=== PATIENT | male | born 1940 | race Caucasian/White ===

== ENCOUNTER 2017-08-03 08:15 | Inpatient (IN) | payer MEDICARE, OTHER ==
[~2017-08-03] VITALS: Ht 175.3 cm; Wt 85.1 kg
[2017-08-03] VITALS (13 sets, daily range): BP systolic 108–143; BP diastolic 64–90; PULSE 87–133; RESP 13–24; TEMP 98.2–103; O2SAT 91–100
[2017-08-03] MEDS ORDERED: METO1TAB42 PO (08:34)
[2017-08-03] MEDS ORDERED: VITA200C3 PO (08:34)
[2017-08-03] MEDS ORDERED: DIOV40TA PO (08:34)
[2017-08-03] MEDS ORDERED: OMEGCAP PO (08:34)
[2017-08-03] MEDS ORDERED: CHOL10008 PO (08:34)
[2017-08-03] MEDS ORDERED: HYDR12.56 PO (08:34)
[2017-08-03] MEDS ORDERED: LIPI20TA PO (08:34)
[2017-08-03] MEDS ORDERED: ASPI-516 CHEW (08:34)
[2017-08-03] MEDS ORDERED: VITA250T3 PO (08:34)
[2017-08-03] MEDS ORDERED: SODIUM CHLOR 0.9% 1000 ML INJ 1,000 ML IV SCH (09:07)
--- NOTE | 2017-08-03 09:14 | PD ---
HPI Chief Complaint: Abdominal Pain Time Seen by Provider: 09:04 Travel History International Travel<30 days: No Contact w/Intl Traveler<30days: No Traveled to known affect area: No History of Present Illness HPI 69-year-old male with history of hypertension, presents today with complaint of right lower quadrant pain 2 days. Patient states it started in his right lateral flank and now has radiated down to his right lower quadrant. He denies any nausea or vomiting. Denies any diarrhea. He states he last had a bowel movement yesterday. The patient does report darker colored urine. He has no history of kidney stones. He's had an appendectomy and a cholecystectomy. There is no reported history of diverticulitis is or diverticulosis. He reports a fever of 102 yesterday. He is afebrile today. PFSH Past Medical History Cardiovascular Problems: Yes High Cholesterol: Yes Chest Pain: Yes Cerebrovascular Accident: Yes Coronary Artery Disease: Yes Hypertension: Yes Past Surgical History Cardiac Surgery: Yes (cabg x 5) Cholecystectomy: Yes Social History Alcohol Use: Yes (occassional) Tobacco Use: No Substance Use: No Allergies-Medications (Allergen,Severity, Reaction): Coded Allergies: No Known Allergies (Unverified , 08/03/17) Reported Meds & Prescriptions Reported Meds & Active Scripts Active Reported [employer]-3 Fish Oil/Vitamin (Fish Oil-Cholecalciferol) 1,000-1,000 Mg Cap 1 Cap PO DAILY Vitamin E 200 Unit Cap 500 Units PO DAILY Vitamin D3 (Cholecalciferol) 1,000 Unit Cap 1,000 Units PO DAILY Vitamin C (Ascorbic Acid) 250 Mg Tab 1,000 Mg PO Aspirin 81 Mg Chew 162 Mg CHEW DAILY Lipitor (Atorvastatin Calcium) 20 Mg Tab 20 Mg PO HS Hydrochlorothiazide 12.5 Mg Tab 12.5 Mg PO DAILY Diovan (Valsartan) 40 Mg Tab 40 Mg PO DAILY Metoprolol Succinate ER 24 HR (Metoprolol Succinate) 25 Mg Tab 12.5 Mg PO HS Review of Systems Except as stated in HPI: all other systems reviewed are Neg General / Constitutional: Positive: Fever, No: Chills (102 yesterday, none today) HENT: No: Headaches, Lightheadedness Cardiovascular: No: Chest Pain or Discomfort, Palpitations Respiratory: No: Cough, Shortness of Breath Gastrointestinal: Positive: Abdominal Pain (right lower quadrant), No: Nausea, Vomiting, Diarrhea Genitourinary: Positive: Other (darker colored urine than normal), No: Dysuria Musculoskeletal: Positive: Pain (pain yesterday in his right), No: Weakness ( flank) Skin: No Rash, No Lesions Neurologic: No: Weakness, Dizziness Physical Exam Narrative GENERAL: Well-nourished, well-developed patient in no acute respiratory distress. SKIN: Focused skin assessment warm/dry. HEAD: Normocephalic/atraumatic. EYES: No scleral icterus. No injection or drainage. NECK: Supple, trachea midline. No JVD or lymphadenopathy. CARDIOVASCULAR: Regular rate and rhythm without murmurs, gallops, or rubs. RESPIRATORY: Breath sounds equal bilaterally. No accessory muscle use. GASTROINTESTINAL: Abdomen soft, slightly distended. There is tenderness to palpation in his right lower quadrant. There is no rebound but voluntary guarding. MUSCULOSKELETAL: No cyanosis, or edema. BACK: Nontender without obvious deformity. NEUROLOGICAL: Awake and alert. Cranial nerves II through XII intact. Motor grossly within normal limits. Five out of 5 muscle strength in all muscle groups. Normal speech. Data Data Last Documented VS Vital Signs Date Time Temp Pulse Resp B/P (MAP) Pulse Ox O2 Delivery O2 Flow Rate FiO2 08/03/17 12:39 87 18 128/75 (92) 94 Room Air 08/03/17 09:52 101.6 Orders Orders Complete Blood Count With Diff (08/03/17 09:07) Comprehensive Metabolic Panel (08/03/17 09:07) Urinalysis - C+S If Indicated (08/03/17 09:07) Iv Access Insert/Monitor (08/03/17 09:07) Ecg Monitoring (08/03/17 09:07) Oximetry (08/03/17 09:07) Morphine Inj (Morphine Inj) (08/03/17 09:15) Ondansetron Inj (Zofran Inj) (08/03/17 09:15) Sodium Chlor 0.9% 1000 Ml Inj (Ns 1000 M (08/03/17 09:07) Sodium Chloride 0.9% Flush (Ns Flush) (08/03/17 09:15) Diatrizoate Liq ( Gastroedith Liq) (08/03/17 09:55) Blood Culture (08/03/17 09:55) Ct Abd/Pel W Iv Contrast(Rout) (08/03/17 09:55) Oral Contrast - Adult (08/03/17 10:03) Iohexol 350 Inj (Omnipaque 350 Inj) (08/03/17 11:26) Levofloxacin 750 Mg Premix Inj (Levaquin (08/03/17 12:30) Metronidazole 500 Mg Inj (Flagyl 500 Mg (08/03/17 12:30) Place In Observation (08/03/17 ) Vital Signs (Adult) MICKI.Q4H (08/03/17 12:39) Activity Oob With Assistance (08/03/17 12:39) Intake + Output 06,14,22 (08/03/17 12:39) Resp Oxygen David C Titrat 1-4 L (08/03/17 ) Sodium Chloride 0.9% Flush (Ns Flush) (08/03/17 12:45) Sodium Chloride 0.9% Flush (Ns Flush) (08/03/17 21:00) Aspirin Chew (Aspirin Chew) (08/04/17 09:00) Atorvastatin (Lipitor) (08/03/17 21:00) Cholecalciferol (Vitamin D3) (08/04/17 09:00) Hydrochlorothiazide (Microzide) (08/04/17 09:00) Metoprolol Succinate Er (Toprol Xl) (08/03/17 21:00) Valsartan (Diovan) (08/04/17 09:00) (Nf) Vitamin E (08/04/17 09:00) Admit Order (Ed Use Only) (08/03/17 12:47) Labs Laboratory Tests Test 08/03/17 09:10 08/03/17 09:33 White Blood Count 17.1 TH/MM3 Red Blood Count 4.53 MIL/MM3 Hemoglobin 13.6 GM/DL Hematocrit 40.0 % Mean Corpuscular Volume 88.3 FL Mean Corpuscular Hemoglobin 30.0 PG Mean Corpuscular Hemoglobin Concent 34.0 % Red Cell Distribution Width 14.0 % Platelet Count 120 TH/MM3 Mean Platelet Volume 8.7 FL Neutrophils (%) (Auto) 89.5 % Lymphocytes (%) (Auto) 5.2 % Monocytes (%) (Auto) 5.1 % Eosinophils (%) (Auto) 0.0 % Basophils (%) (Auto) 0.2 % Neutrophils # (Auto) 15.3 TH/MM3 Lymphocytes # (Auto) 0.9 TH/MM3 Monocytes # (Auto) 0.9 TH/MM3 Eosinophils # (Auto) 0.0 TH/MM3 Basophils # (Auto) 0.0 TH/MM3 CBC Comment DIFF FINAL Differential Comment Blood Urea Nitrogen 14 MG/DL Creatinine 1.08 MG/DL Random Glucose 121 MG/DL Total Protein 7.4 GM/DL Albumin 3.8 GM/DL Calcium Level 8.6 MG/DL Alkaline Phosphatase 63 U/L Aspartate Amino Transf (AST/SGOT) 33 U/L Alanine Aminotransferase (ALT/SGPT) 36 U/L Total Bilirubin 2.3 MG/DL Sodium Level 136 MEQ/L Potassium Level 3.4 MEQ/L Chloride Level 100 MEQ/L Carbon Dioxide Level 25.5 MEQ/L Anion Gap 11 MEQ/L Estimat Glomerular Filtration Rate 66 ML/MIN Urine Color YELLOW Urine Turbidity CLEAR Urine pH 7.0 Urine Specific [place] 1.018 Urine Protein 30 mg/dL Urine Glucose (UA) NEG mg/dL Urine Ketones TRACE mg/dL Urine Occult Blood SMALL Urine Nitrite NEG Urine Bilirubin NEG Urine Urobilinogen 2.0 MG/DL Urine Leukocyte Esterase NEG Urine RBC 30 /hpf Urine WBC LESS THAN 1 /hpf Urine Mucus FEW /lpf Microscopic Urinalysis Comment CULT NOT INDICATED MDM Medical Decision Making Medical Screen Exam Complete: Yes Emergency Medical Condition: Yes Differential Diagnosis Versus diverticulitis versus bowel obstruction versus UTI Narrative Course 76-year-old male presents with complaints of right lower quadrant abdominal pain. The patient states the pain started in his right flank and radiated to his groin. He has no flank pain at this time. Patient is also febrile with a temperature of 101.6. He has a white blood cell count that is elevated 17,000. Urinalysis shows hematuria without evidence of infection. Blood cultures have been obtained. CT scan shows no evidence of acute infectious abdominal process. Given this, I would feel more comfortable having him be admitted to the hospital. I discussed the case with Dr. Lobato, covering for Dr. Rojo, attending physician for the medicine service. He has been started on Levaquin and Flagyl. Diagnosis Primary Impression: Fever Additional Impressions: Right lower quadrant abdominal pain Leukocytosis Hematuria History of hypertension Admitting Information Admitting Physician Requests: Thomas Novoa C. MD Aug 03, 2017 09:14
[2017-08-03] MEDS ORDERED: ONDANSETRON HCL 4 MG/2 ML VIAL IVP ONE (09:15)
[2017-08-03] MEDS ORDERED: SODIUM CHLORIDE 0.9% FLUSH 10 ML FLUSH IV FLUSH PRN ×2 (09:15→12:45)
[2017-08-03] MEDS ORDERED: MORPHINE SULFATE 4 MG/ML INJ IV PUSH ONE (09:15)
[2017-08-03 09:27] LABS: AUTOMATED NEUTROPHIL # 15.3 TH/MM3 (1.8-7.7); BASOPHIL % 0.2 % (0.0-2.0); HEMO FLAGS DIFF FINAL; LYMPH % 5.2 % (9.0-44.0); LYMPHOCYTE # 0.9 TH/MM3 (1.0-4.8); MEAN CELL VOLUME 88.3 FL (80.0-100.0); MONO % 5.1 % (0.0-8.0); NEUT % 89.5 % (16.0-70.0); PLATELET COUNT 120 TH/MM3 (150-450); RED BLOOD COUNT 4.53 MIL/MM3 (4.50-5.90); WHITE BLOOD COUNT 17.1 TH/MM3 (4.0-11.0)
[2017-08-03 09:45] LABS: ANION GAP 11 MEQ/L (5-15); AST (GOT) 33 U/L (15-37); BICARBONATE 25.5 MEQ/L (21.0-32.0); BLOOD UREA NITROGEN 14 MG/DL (7-18); CHLORIDE 100 MEQ/L (98-107); POTASSIUM 3.4 MEQ/L (3.5-5.1); SODIUM (NA) 136 MEQ/L (136-145)
[2017-08-03 09:46] LABS: BLOOD, URINE SMALL (NEG); COMMENT (UR) CULT NOT INDICATED; CULTURE IF INDICATED CULT NOT INDICATED; GLUCOSE,URINE NEG (NEG); KETONE, URINE TRACE mg/dL (NEG); MUCUS URINE FEW /lpf (OCC); NITRITE,URINE NEG (NEG); URINE COLOR YELLOW (YELLW/STRAW)
[2017-08-03 09:53] LABS: ALKALINE PHOSPHATASE 63 U/L (45-117); ALT (GPT) 36 U/L (12-78); GLOMERULAR FILTRATION RATE 66 ML/MIN (>89); TOTAL BILIRUBIN ADULT 2.3 MG/DL (0.2-1.0)
[2017-08-03] MEDS ORDERED: DIATRIZOATE MEGLUM/DIATRIZOATE SOD 9 ML CUP ONE (09:55)
[2017-08-03] MEDS ORDERED: IOHEXOL 350 MG/ML 10 ML VIAL (for RAD DIAG) IVCONTRAST ONE (11:26)
--- NOTE | 2017-08-03 11:40 | RADRPT ---
EXAM DATE/TIME: 08/03/2017 11:14 [facility] COMPARISON: No previous studies available for comparison. INDICATIONS : Right lower quadrant pain and fever. History of appendectomy. IV CONTRAST: 94 cc Omnipaque 350 (iohexol) IV ORAL CONTRAST: No oral contrast ingested. RADIATION DOSE: 13.77 CTDIvol (mGy) MEDICAL HISTORY : Cerebrovascular disease. Cardiovascular disease Hypertension. SURGICAL HISTORY : Appendectomy. Cholecystectomy. ENCOUNTER: Initial ACUITY: 2 days PAIN SCALE: 7/10 LOCATION: Right lower quadrant TECHNIQUE: Volumetric scanning of the abdomen and pelvis was performed. Using automated exposure control and ad justment of the mA and/or kV according to patient size, radiation dose was kept as low as reasonably achievable to obtain optimal diagnostic quality images. DICOM format image data is available electro nically for review and comparison. FINDINGS: LOWER LUNGS: Minimal bibasilar ground glass opacities consistent with atelectasis. LIVER: Mild diffusely decreased hepatic attenuation without significant focal mass or intrahepatic ductal di latation. Gallbladder is surgically absent. SPLEEN: Normal size without lesion. PANCREAS: Within normal limits. KIDNEYS: Kidneys demonstrate symmetrical enhancement and are symmetric in size without evidence of hydronephro sis or radiopaque renal calculi. There is a 2 x 1 cm cystic lesion in the superior pole the left kidn ey measuring about 15 Hounsfield units which is in the upper limits of normal for simple cyst. ADRENAL GLANDS: Within normal limits. VASCULAR: There is no aortic aneurysm. BOWEL/MESENTERY: Mild sigmoid diverticulosis. Marginally dilated loops of distal jejunum in the left abdomen. Ingested oral contrast is noted beyond this level. No pneumatosis or free air. There is no focal drainable fl uid collection. ABDOMINAL WALL: Within normal limits. RETROPERITONEUM: There is no lymphadenopathy. BLADDER: Bladder is distended but otherwise unremarkable. REPRODUCTIVE: Nonspecific enlargement of the prostate gland. INGUINAL: Small fat-containing inguinal hernias. MUSCULOSKELETAL: Posterior kain and screw fixation at L3-4. No abnormal lytic or blastic bony lesions. CONCLUSION: 1. No drainable fluid collection/abscess status post appendectomy. 2. Marginally prominent jejunal loops consistent with mild adynamic ileus. 3. Ancillary findings, as above. Javi Renee MD on August 03, 2017 at 11:26 Board Certified Radiologist. This report was verified electronically.
[2017-08-03] MEDS ORDERED: metroNIDAZOLE 500 MG INJ 100 ML IV ONE (12:30)
[2017-08-03] MEDS ORDERED: LEVOFLOXACIN 750 MG PREMIX INJ 150 ML IV ONE (12:30)
--- NOTE | 2017-08-03 12:38 | HHI.HP ---
HPI Service Family Medicine Primary Care Physician No Primary Care Physician Admission Diagnosis Diagnoses: International Travel<30 Days: No Contact w/Intl Traveler<30days: No Known Affected Area: No History of Present Illness Patient is a 76-year-old male with a past medical history of CAD status post 5-vessel CABG, hyperlipidemia, and hypertension that presents to the [place] ED with a chief complaint of right lower quadrant pain of 2 days duration. He describes the pain as 10/10 pain that mata like fire. Patient states that he was remodeling in an apartment on Wednesday 08/01 and did well all day. He went to bed that night and woke up around 4 AM on morning with severe right back pain that radiated to his right lower quadrant/ suprapubic area. Patient states that the pain was so severe that he could not move any part of his body without feeling pain. He was finally able to get himself out of bed and took 2 Aleve pills but could not do much the entire day and could barely walk. The pain initially subsided and then started to get worse again such that his friend convinced him to come to the ER. He has not been ill prior to this incident and denies any sick contacts. (Imelda Zeng MD R2) Review of Systems Constitutional: COMPLAINS OF: Change in appetite, DENIES: Fatigue, Fever, Weight loss, Chills, Dizziness Eyes: DENIES: Blurred vision, Vision loss Ears, nose, mouth, throat: DENIES: Nasal discharge, Throat pain, Running Nose, Sinus Pain Respiratory: DENIES: Cough, Wheezing, Shortness of breath Cardiovascular: DENIES: Chest pain, Palpitations Gastrointestinal: COMPLAINS OF: Abdominal pain, Constipation (last bowel movement on Sunday and was bigger than normal - was regular ), DENIES: Diarrhea Genitourinary: DENIES: Urinary frequency, Dysuria Musculoskeletal: COMPLAINS OF: Muscle aches, DENIES: Back pain Integumentary: DENIES: Pruritus, Rash Neurologic: DENIES: Headache, Localized weakness, Paresthesias Psychiatric: DENIES: Anxiety, Depression (Imelda Zeng MD R2) Past Family Social History Past Medical History Coronary artery disease status post 5 vessel CABG Hypertension Hyperlipidemia Past Surgical History Five-vessel CABG in 2010 Back surgery for a slipped disc Cholecystectomy Appendectomy Reported Medications Reported Meds & Active Scripts Active Reported [place]-3 Fish Oil/Vitamin (Fish Oil-Cholecalciferol) 1,000-1,000 Mg Cap 1 Cap PO DAILY Vitamin E 200 Unit Cap 500 Units PO DAILY Vitamin D3 (Cholecalciferol) 1,000 Unit Cap 1,000 Units PO DAILY Vitamin C (Ascorbic Acid) 250 Mg Tab 1,000 Mg PO Aspirin 81 Mg Chew 162 Mg CHEW DAILY Lipitor (Atorvastatin Calcium) 20 Mg Tab 20 Mg PO HS Hydrochlorothiazide 12.5 Mg Tab 12.5 Mg PO DAILY Diovan (Valsartan) 40 Mg Tab 40 Mg PO DAILY Metoprolol Succinate ER 24 HR (Metoprolol Succinate) 25 Mg Tab 12.5 Mg PO HS (Imelda Zeng MD R2) Allergies: Coded Allergies: No Known Allergies (Unverified , 08/03/17) Family History Uncles, cousins and brother have had disease No history of cancer or strokes in his family Social History Lives seasonally in [facility], from [place] Smoked for 10 years from age [age] 1-2 drinks a day, 3-4 drinks a week (Imelda Zeng MD R2) Physical Exam Vital Signs Vital Signs Date Time Temp Pulse Resp B/P (MAP) Pulse Ox O2 Delivery O2 Flow Rate FiO2 08/03/17 09:52 101.6 93 18 143/74 (97) 95 Room Air 08/03/17 09:51 95 Room Air 08/03/17 08:35 98.6 87 18 137/90 (106) 93 Room Air 08/03/17 08:27 18 08/03/17 08:17 98.2 99 13 141/81 (101) 100 Physical Exam GENERAL: This is a well-nourished, well-developed patient, in no apparent distress. SKIN: No rashes, ecchymoses or lesions. Cool and dry. No sacral or decubitis ulcers HEAD: Atraumatic. Normocephalic. No temporal or scalp tenderness. EYES: Pupils equal round and reactive. Extraocular motions intact. No scleral icterus. No injection or drainage. ENT: Nose without bleeding, purulent drainage or septal hematoma. Throat without erythema, tonsillar hypertrophy or exudate. Uvula midline. Airway patent. NECK: Trachea midline. No JVD or lymphadenopathy. Supple, nontender, no meningeal signs. CARDIOVASCULAR: Regular rate and rhythm without murmurs, gallops, or rubs. RESPIRATORY: Clear to auscultation. Breath sounds equal bilaterally. No wheezes , rales, or rhonchi. GASTROINTESTINAL: Abdomen soft, tender to palpation in the right lower quadrant/ right suprapubic area, distended and tympanic. No hepato-splenomegaly, or palpable masses. No guarding. MUSCULOSKELETAL: Extremities without clubbing, cyanosis, or edema. Prepatellar bursitis of knees bilaterally. No calf tenderness. Unable to hold right lower extremity against gravity due to pain. Nontender over right back/flank. NEUROLOGICAL: Awake and alert. Cranial nerves II through XII intact. Motor and sensory grossly within normal limits. Five out of 5 muscle strength in bilateral upper extremities and left lower extremity. Normal speech. Laboratory Laboratory Tests Test 08/03/17 09:10 08/03/17 09:33 White Blood Count 17.1 Red Blood Count 4.53 Hemoglobin 13.6 Hematocrit 40.0 Mean Corpuscular Volume 88.3 Mean Corpuscular Hemoglobin 30.0 Mean Corpuscular Hemoglobin Concent 34.0 Red Cell Distribution Width 14.0 Platelet Count 120 Mean Platelet Volume 8.7 Neutrophils (%) (Auto) 89.5 Lymphocytes (%) (Auto) 5.2 Monocytes (%) (Auto) 5.1 Eosinophils (%) (Auto) 0.0 Basophils (%) (Auto) 0.2 Neutrophils # (Auto) 15.3 Lymphocytes # (Auto) 0.9 Monocytes # (Auto) 0.9 Eosinophils # (Auto) 0.0 Basophils # (Auto) 0.0 CBC Comment DIFF FINAL Differential Comment Blood Urea Nitrogen 14 Creatinine 1.08 Random Glucose 121 Total Protein 7.4 Albumin 3.8 Calcium Level 8.6 Alkaline Phosphatase 63 Aspartate Amino Transf (AST/SGOT) 33 Alanine Aminotransferase (ALT/SGPT) 36 Total Bilirubin 2.3 Sodium Level 136 Potassium Level 3.4 Chloride Level 100 Carbon Dioxide Level 25.5 Anion Gap 11 Estimat Glomerular Filtration Rate 66 Urine Color YELLOW Urine Turbidity CLEAR Urine pH 7.0 Urine Specific [place] 1.018 Urine Protein 30 Urine Glucose (UA) NEG Urine Ketones TRACE Urine Occult Blood SMALL Urine Nitrite NEG Urine Bilirubin NEG Urine Urobilinogen 2.0 Urine Leukocyte Esterase NEG Urine RBC 30 Urine WBC LESS THAN 1 Urine Mucus FEW Microscopic Urinalysis Comment CULT NOT INDICATED Date/Time Source Procedure Growth Status 08/03/17 10:05 Blood Peripheral Aerobic Blood Culture Pending Received 08/03/17 10:05 Blood Peripheral Anaerobic Blood Culture Pending Received (Imelda Zeng MD R2) Result Diagram: 08/03/17 0910 08/03/17 0910 Imaging Last 72 hours Impressions Abdomen/Pelvis CT 08/03/17 0955 Signed Impressions: Service Date/Time: Thursday, August 03, 2017 11:14 - CONCLUSION: 1. No drainable fluid collection/abscess status post appendectomy. 2. Marginally prominent jejunal loops consistent with mild adynamic ileus. 3. Ancillary findings, as above. Javi Renee MD Abdomen Ultrasound 08/03/17 0000 Signed Impressions: Service Date/Time: Thursday, August 03, 2017 13:35 - CONCLUSION: Unremarkable. Etiology for abdominal pain is not evident. Keyur Miguel MD FACR Course In the ED, a CT scan of the abdomen was performed that showed marginally prominent jejunal loops consistent with mild adynamic ileus. Ultrasound of the abdomen is unremarkable and did not reveal a possible source of the abdominal pain. (Imelda Zeng MD R2) Caprini VTE Risk Assessment Caprini VTE Risk Assessment: Mod/High Risk (score >= 2) Caprini Risk Assessment Model Point Value = 1 Point Value = 2 Point Value = 3 Point Value = 5 Age 41-60 Minor surgery BMI > 25 kg/m2 Swollen legs Varicose veins or History of unexplained or recurrent spontaneous Oral contraceptives or hormone replacement Sepsis (< 1 month) Serious lung disease, including pneumonia (< 1 month) Abnormal pulmonary function Acute myocardial infarction Congestive heart failure (< 1 month) History of inflammatory bowel disease Medical patient at bed rest Age 61-74 Arthroscopic surgery Major open surgery (> 45 min) Laparoscopic surgery (> 45 min) Malignancy Confined to bed (> 72 hours) Immobilizing plaster cast Central venous access Age >= 75 History of VTE Family history of VTE Factor V Leiden Prothrombin [id number] Lupus anticoagulant Anticardiolipin antibodies Elevated serum homocysteine Heparin-induced thrombocytopenia Other congenital or acquired thrombophilia Stroke (< 1 month) Elective arthroplasty Hip, pelvis, or leg fracture Acute spinal cord injury (< 1 month) Prophylaxis Regimen Total Risk Factor Score Risk Level Prophylaxis Regimen 0-1 Low Early ambulation 2 Moderate Order ONE of the following: *Sequential Compression Device (SCD) *Heparin 5000 units SQ BID 3-4 Higher Order ONE of the following medications: *Heparin 5000 units SQ TID *Enoxaparin/Lovenox 40 mg SQ daily (WT < 150 kg, CrCl > 30 mL/min) *Enoxaparin/Lovenox 30 mg SQ daily (WT < 150 kg, CrCl > 10-29 mL/min) *Enoxaparin/Lovenox 30 mg SQ BID (WT < 150 kg, CrCl > 30 mL/min) AND/OR *Sequential Compression Device (SCD) 5 or more Highest Order ONE of the following medications: *Heparin 5000 units SQ TID (Preferred with Epidurals) *Enoxaparin/Lovenox 40 mg SQ daily (WT < 150 kg, CrCl > 30 mL/min) *Enoxaparin/Lovenox 30 mg SQ daily (WT < 150 kg, CrCl > 10-29 mL/min) *Enoxaparin/Lovenox 30 mg SQ BID (WT < 150 kg, CrCl > 30 mL/min) AND *Sequential Compression Device (SCD) (Imelda Zeng MD R2) Assessment and Plan Assessment and Plan 76-year-old male presents with right lower quadrant/right groin pain, meets sepsis criteria with unknown source, and later developed A. fib with RVR. Admitted for empiric antibiotic therapy, management of A. fib, and ACS rule out. Code Status Full code Discussed Condition With Seen and examined with Dr. Gonzalez. Discussed with Dr. Rojo (Imelda Zeng MD R2) Attending Attestation The patient has been seen and examined. The chart and all resident notes have been reviewed. I agree that inpatient care is appropriate and that a two midnight stay is expected for the reasons documented in the resident history and physical. I have discussed this with the resident and certify the resident s order for inpatient admission. (Ana Rojo MD) Problem List: (1) Sepsis ICD Codes: A41.9 - Sepsis, unspecified organism Plan: -Met sepsis criteria and admission with elevated pulse and WBC of 17.1, no clear source. Initially patient was afebrile but developed a fever up to 103 F * CT of abdomen only shows a mild adynamic ileus with no indication of a source of infection * Received 1 L normal saline bolus in the ED * Urinalysis shows small occult blood with 30 red blood cells, not indicative of infection * Lactate within normal limits at 1.4 * Blood cultures pending * Received one dose each of Levaquin IV and Flagyl IV * Initially was switched to ciprofloxacin IV with Flagyl, but changed to Zosyn IV and vancomycin IV (2) Atrial fibrillation with RVR ICD Codes: I48.91 - Unspecified atrial fibrillation Plan: -Patient initially presented with regular rate and rhythm but developed new onset A. fib with RVR -Received 10 mg IV diltiazem bolus and was transitioned to diltiazem drip with eventual resolution of RVR but remains in A. fib -EKG obtained in the ED showed A. fib with RVR and inverted T waves, no comparison EKG available, will trend 2 -Troponin 0.10, will trend 2. Elevated troponin may be secondary to demand ischemia from the Afib with RVR -TSH WNL at 0.876 -BMP elevated at 414, will trend -2-D echo pending -Cardiology consult for new onset A. fib (3) Right lower quadrant abdominal pain ICD Codes: R10.31 - Right lower quadrant pain Status: Acute Plan: -Differential diagnoses includes right kidney stone, early colitis, septic right hip joint, muscle spasm with radiculopathy -Pt does not recall passing a stone -Urine positive for occult blood and 30 RBCs -Renal US essentially normal except for small upper pole cyst also seen on CT abdomen. No hydronephrosis, stone, or mass on either CT or US -Mild adynamic ileus on CT scan -Last bowel movement was on Wednesday 08/01 and was normal but larger than usual -Initially nothing by mouth, will advance diet as tolerated -Morphine 2 mg IV every 4 hours for pain -NS at 125 mL/hour for ileus -Constipation regimen -Urine filter for possible stone -Consider urology consult - pt does report weak stream and may be retaining urine -Straight cath as needed (4) Thrombocytopenia ICD Codes: D69.6 - Thrombocytopenia, unspecified Plan: -Platelets 120 with normal hemoglobin and hematocrit -ITP on the differential, will continue to monitor (5) Hyperbilirubinemia ICD Codes: E80.6 - Other disorders of bilirubin metabolism Plan: -Total bilirubin of 2.3 with breakdown as follows: Direct bilirubin 0.5, indirect bilirubin 1.8 -Suspicious for hemolysis -Will check hepatitis profile (6) Chronic Medical Problems Plan: CAD: Continue metoprolol ER 12.5 mg by mouth and aspirin 162 mg by mouth daily Hypertension: Holding valsartan and hydrochlorothiazide due to Cardizem drip and low blood pressure, will possibly continuing the a.m. on reassessment (7) FEN/DVT PPX/GI PPX/Nursing Orders Plan: Fluids: NS @ 125 mls/hr IV Electrolytes: Will monitor and replace as needed Nutrition: Currently clear liquid diet, will advance to Heart-healthy diet as tolerated DVT Prophylaxis: Lovenox 40mg daily GI Prophylaxis: Protonix 40mg PO daily Constipation prophylaxis: Pericolace 1 tab PO BID scheduled, milk of magnesia PRN PRN Medications Tylenol 650 mg by mouth every 4 hours when necessary pain 1-10 or temperature greater than 100.4F Zofran 4 mg IV push every 6 hours when necessary nausea vomiting [place] 325-5 mg 1 tab by mouth every 6 hours when necessary pain 5-7 [place] 325-10 mg 1 tab by mouth every 6 hours when necessary pain 8-10 Morphine 2 mg IV push every 3 hours when necessary breakthrough pain -Vitals Q4h -Monitor I's and O's -playground monitor with telemetry with continuous vital signs -Activity OOB with assistance -PT to assist with ambulation -Case management consult to assist with discharge disposition Disposition: Possibly in the next 1-2 days pending clinical improvement (Imelda Zeng MD R2) Problem Qualifiers (1) Sepsis: Qualified Codes: A41.9 - Sepsis, unspecified organism Imelda Zeng MD R2 Aug 03, 2017 12:37 Ana Rojo MD Aug 04, 2017 14:24
[2017-08-03] MEDS ORDERED: PILL SPLITTER OTHER PRN (13:00)
[2017-08-03] MEDS ORDERED: MORPHINE SULFATE 2 MG/ML INJ IV PUSH PRN (13:15)
[2017-08-03] MEDS ORDERED: ONDANSETRON HCL 4 MG/2 ML VIAL IV PUSH PRN (13:15)
[2017-08-03] MEDS ORDERED: ACETAMINOPHEN 325 MG TAB PO PRN (13:15)
[2017-08-03 14:28] LABS: INDIRECT BILIRUBIN 1.8 MG/DL (0.0-0.8); MAGNESIUM 1.9 MG/DL (1.5-2.5)
--- NOTE | 2017-08-03 14:53 | RADRPT ---
EXAM DATE/TIME: 08/03/2017 13:35 [facility] COMPARISON: No previous studies available for comparison. INDICATIONS : Abdominal pain, fever, abdominal distention. MEDICAL HISTORY : Hypertension. Hypercholesterolemia. Cerebral vascular accident. Coronary artery disease. SURGICAL HISTORY : Cholecystectomy. Orthopedic surgery. CABG. ENCOUNTER: Initial ACUITY: 2 days PAIN SCORE: 5/10 LOCATION: Right upper quadrant MEASUREMENTS: LIVER: 14.3 cm length COMMON DUCT: Non-visualized RIGHT KIDNEY: 12.4 x 5.1 x 5.8 cm LEFT KIDNEY: 13.4 x 4.6 x 6.5 cm SPLEEN: 11.0 cm length AORTA: 2.0cm maximal FINDINGS: LIVER: Normal echotexture without focal lesion or ductal dilatation. COMMON DUCT: No intraluminal mass or stone visualized. GALLBLADDER: Surgical absence PANCREAS: The visualized portions are within normal limits. RIGHT KIDNEY: No hydronephrosis, stone or mass. LEFT KIDNEY: Small upper pole cyst. SPLEEN: No focal lesion. AORTA: Non aneurysmal. IVC: Within normal limits. CONCLUSION: Unremarkable. Etiology for abdominal pain is not evident. Keyur Miguel MD FACR on August 03, 2017 at 14:50 Board Certified Radiologist. This report was verified electronically.
[2017-08-03] MEDS ORDERED: SENNOSIDES 8.6 MG TAB PO PRN (15:45)
[2017-08-03] MEDS ORDERED: BISACODYL 10 MG SUPP RECTAL PRN (15:45)
[2017-08-03] MEDS: METOPROLOL SUCCINATE 25 MG EXTENDED RELEASE TAB PO SCH ×2 (15:48→23:14)
[2017-08-03] MEDS: HEPARIN SODIUM - SQ 10,000 UNITS/ML VIAL SQ SCH ×2 (15:48→23:14)
[2017-08-03] MEDS: SODIUM CHLOR 0.9% 1000 ML INJ 1,000 ML IV SCH (17:46)
[2017-08-03] MEDS: MAGNESIUM HYDROXIDE SUSP 30 ML CUP PO PRN (17:48)
--- NOTE | 2017-08-03 17:49 | HHI.FPPN ---
Subjective Subjective Patient seen and examined. Case reviewed and discussed Please refer to resident H&P for further details regarding HPI, ROS, PMH, SurgHx , FH and SocHx. In summary, patient is a 76yoM with a history of CAD s/p CABG x 5v presenting with abdominal pain and fevers He reports yesterday morning he woke up with severe flank pain with radiated around to his R groin, burning in nature, 07/03 He reports some associated burning with urination He denies any history of renal stones Patient does note some sensations of having to void a large amount, but minimal urine coming out. Patient also notes a history of chronic constipation, last BM was normal 2 days ago. He treats this with MOM. At the time of my encounter, the patient is noted to complain of palpitations and sensations of a fast heart rate which started while he was at the hospital. [facility] Objective Objective Last Impressions Abdomen/Pelvis CT 08/03/17 0955 Signed Impressions: Service Date/Time: Thursday, August 03, 2017 11:14 - CONCLUSION: 1. No drainable fluid collection/abscess status post appendectomy. 2. Marginally prominent jejunal loops consistent with mild adynamic ileus. 3. Ancillary findings, as above. Javi Renee MD Abdomen Ultrasound 08/03/17 0000 Signed Impressions: Service Date/Time: Thursday, August 03, 2017 13:35 - CONCLUSION: Unremarkable. Etiology for abdominal pain is not evident. Keyur Miguel MD FACR Laboratory Tests - Abnormals Test 08/03/17 09:10 08/03/17 09:33 White Blood Count 17.1 TH/MM3 Platelet Count 120 TH/MM3 Neutrophils (%) (Auto) 89.5 % Lymphocytes (%) (Auto) 5.2 % Neutrophils # (Auto) 15.3 TH/MM3 Lymphocytes # (Auto) 0.9 TH/MM3 Random Glucose 121 MG/DL Total Bilirubin 2.3 MG/DL Direct Bilirubin 0.5 MG/DL Potassium Level 3.4 MEQ/L Estimat Glomerular Filtration Rate 66 ML/MIN Phosphorus Level 2.3 MG/DL Indirect Bilirubin 1.8 MG/DL Urine Protein 30 mg/dL Urine Ketones TRACE mg/dL Urine Occult Blood SMALL Urine RBC 30 /hpf Urine Mucus FEW /lpf Vital Signs 08/03/17 08/03/17 08/03/1708/03/17 08:17 08:27 08:35 09:51 Temp 98.2 98.6 Pulse 99 87 Resp 13 18 18 B/P (MAP) 141/81 (101) 137/90 (106) Pulse Ox 100 93 95 O2 Delivery Room Air Room Air 08/03/17 08/03/17 08/03/17 08/03/17 09:52 12:39 14:06 15:00 Temp 101.6 103.0 Pulse 93 87 119 Resp 18 18 18 B/P (MAP) 143/74 (97) 128/75 (92) 135/80 (98) Pulse Ox 95 94 94 O2 Delivery Room Air Room Air Room Air 08/03/17 08/03/17 15:07 15:32 Temp 100.8 Pulse 117 Resp 20 19 B/P (MAP) 116/69 (85) Pulse Ox 94 INTAKE & OUTPUT 08/04/17 07:00 Intake Total 1100 ml Balance 1100 ml Physical exam GENERAL: wdwn male, appears comfortable, resting in bed, at the bedside SKIN: Warm and dry. No rashes HEAD: Normocephalic. AT EYES: No scleral icterus. No injection or drainage. ENT: OP clear. MM slightly dry NECK: Supple, trachea midline. No JVD or lymphadenopathy. CARDIOVASCULAR: Mildlu elevated HR in 90s, irregularly irregular rhythm without audible murmurs, gallops, or rubs. RESPIRATORY: Breath sounds equal and clear bilaterally. No accessory muscle use. GASTROINTESTINAL: Abdomen soft, distended. There is TTP over epigastrium and suprapubic region. MUSCULOSKELETAL: No cyanosis, or edema. NO calf tenderness. There is pre- patellar bursitis bilaterally. BACK: Nontender without obvious deformity. No CVA tenderness. NEURO: Awake and alert. Normal speech. Motor and sensory intact and equal bilaterally. Assessment Assessment 76yoM admitted with: Sepsis Abdominal pain and fever Cystic lesion L superior pole of kidney - patient informed Ileus, with mildly dilated loops of jejunum ?Nephrolithiasis, may have passed stone Hyperbilirubinemia Suspect new onset Afib CAD with Hx CABG x 5v Leukocytosis Tachycardia Hyperglycemia PLAN PLAN IVF Lactic acid sepsis protocol Renal ultrasound to further characterize cystic lesion Bowel regimen Ambulation Consider GI consultation if no improvement Strain urine Pain control Consider urology consultation if continues to have difficulty with voiding 12 lead ekg, monitor for afib If positive, will treat for new onset afib Empiric antibiotic therapy with Cipro, Flagyl Hepatitis profile Direct and indirect bilirubin, trend levels Resume home meds as appropriate If no other source of infection, further evaluate knees as source Patient seen and examined. Case reviewed and discussed with RN, patient, , resident team Agree with plan of care as discussed with me and documented in the resident note. Ana Rojo MD Aug 03, 2017 17:49
[2017-08-03] MEDS ORDERED: metroNIDAZOLE 500 MG INJ 100 ML IV SCH (18:00)
[2017-08-03 18:12] LABS: HEMOGLOBIN A1a 1.2 %; HEMOGLOBIN A1b 1.5 %; HEMOGLOBIN LA1C 2.2 %
[2017-08-03] MEDS ORDERED: DILTIAZEM HCL 25 MG/5 ML VIAL IV ONE (19:00)
[2017-08-03] MEDS ORDERED: DILTIAZEM 125 MG/NS 100 ML IV PRN ×2 (20:00)
[2017-08-03] MEDS ORDERED: DILTIAZEM DRIP 125 MG in NS 125 ML PREMIX DELTONA ONLY IV PRN (20:00)
[2017-08-03] MEDS ORDERED: METOPROLOL SUCCINATE 25 MG EXTENDED RELEASE TAB PO SCH (21:00)
[2017-08-03] MEDS ORDERED: Vancomycin Consult Pharmacy 1 EA OTHER SCH (22:00)
[2017-08-03] MEDS ORDERED: VANCOMYCIN INJ 1,250 MG in SODIUM CHLOR 0.9% 250 ML INJ 250 ML IV SCH (22:00)
[2017-08-03] MEDS ORDERED: SODIUM CHLORID 0.9% 500 ML INJ 500 ML IV ONE (22:00)
[2017-08-03] MEDS: DOCUSATE SODIUM 50 MG/SENNA 8.6 MG TAB PO SCH (23:13)
[2017-08-03] MEDS: ATORVASTATIN 20 MG TAB PO SCH (23:14)
[2017-08-03] MEDS: SODIUM CHLORIDE 0.9% FLUSH 10 ML FLUSH IV FLUSH SCH (23:14)
[2017-08-03] MEDS: PIPERACIL-TAZO 3.375 GM PREMIX 50 ML IV SCH (23:47)
[2017-08-04] VITALS (21 sets, daily range): BP systolic 102–124; BP diastolic 64–83; PULSE 80–111; RESP 18; TEMP 97.8–99.6; O2SAT 93–96
[2017-08-04] MEDS ORDERED: VANCOMYCIN INJ 1,800 MG in SODIUM CHLORID 0.9% 500 ML INJ 500 ML IV ONE ×2
--- NOTE | 2017-08-04 00:02 | HHI.FPPN ---
Addendum to progress note ADDENDUM Reason for addendum: Additonal documentation Additional information Dr. Raines went to evaluate patient approximately around 21:30. Patient was in Afib with RVR. Blood pressures were around 99-113/65-70s with HR 100-115. Patient was currently being treated with Diltazem drip, Cipro, &Flagyl. Due to concern for decreased blood pressure and increased heart rate, 500mg bolus of NS was given. Blood pressures remained stable after bolus. Patient endorses abdominal pain in RLQ. Patient states that he has been able to urinate, but unsure of the amount he voided. Patient denies CP, SOB, and N/V. returned to the floor again at 00:00 to speak with the nurse and to review the patient's telemetry.Telemetry showed that patient was still in Afib with occasional PVCs and heart rate less than 100. Vitals: 103 T, P 100-115, BP 99-113/65-70s, R 24 Cardio: Irregular rate and rhythm, no m/r/g Respiratory: CTAB, no crackles or wheezes Extremities: no cyanosis or edema noted A/P: 76 yr old M w/ PMHx of CAD s/p CABG x 5 presenting with new-onset Afib w/ RVR, abdominal pain, and fevers. Admitted for ACS r/o and sepsis workup. -s/p 500 ml NS bolus -Continue with MIVF 150mls/hr -Discontinued Cipro & Flagyl -Start Vanc & Zosyn for empiric coverage -Echo 2D complete with doppler, TSH, and Cardio consult ordered -Continue to trend troponins with EKGs -Diltazem Drip increased to 15mg/hr -Bladder Scan ordered, if post-void residual volume abnormal, will place [place] catheter and consult urology for possible urinary obstruction -Continue to strain urine for possible urinary stones sdw Dr. Rojo and Dr. Zeng (Zully Frey MD R1) Zully Frey MD R1 Aug 04, 2017 00:02 Ana Rojo MD Aug 04, 2017 14:25
[2017-08-04] MEDS ORDERED: ACETAMINOPHEN/HYDROcodone 325 MG/10 MG TAB PO PRN (01:30)
[2017-08-04 01:50] LABS: AUTOMATED NEUTROPHIL # 10.2 TH/MM3 (1.8-7.7); BASOPHIL % 0.2 % (0.0-2.0); HEMATOCRIT 35.8 % (39.0-51.0); HEMO FLAGS DIFF FINAL; LYMPH % 4.7 % (9.0-44.0); LYMPHOCYTE # 0.5 TH/MM3 (1.0-4.8); MEAN CELL VOLUME 88.1 FL (80.0-100.0); MEAN CORPUSCULAR HEMOGLOBIN 29.5 PG (27.0-34.0); MEAN CORPUSCULAR HGB CONC 33.5 % (32.0-36.0); NEUT % 89.1 % (16.0-70.0); PLATELET COUNT 102 TH/MM3 (150-450); RED BLOOD COUNT 4.07 MIL/MM3 (4.50-5.90); RED CELL DISTRIBUTION WIDTH 13.8 % (11.6-17.2); WHITE BLOOD COUNT 11.4 TH/MM3 (4.0-11.0)
[2017-08-04] MEDS ORDERED: CIPROFLOXACIN 400 MG PREMIX 200 ML IV SCH (02:00)
[2017-08-04 02:17] LABS: ALKALINE PHOSPHATASE 56 U/L (45-117); ALT (GPT) 27 U/L (12-78); ANION GAP 8 MEQ/L (5-15); AST (GOT) 28 U/L (15-37); BICARBONATE 27.7 MEQ/L (21.0-32.0); BLOOD UREA NITROGEN 14 MG/DL (7-18); CHLORIDE 103 MEQ/L (98-107); GLOMERULAR FILTRATION RATE 72 ML/MIN (>89); POTASSIUM 3.4 MEQ/L (3.5-5.1); SODIUM (NA) 139 MEQ/L (136-145); TOTAL BILIRUBIN ADULT 2.1 MG/DL (0.2-1.0)
[2017-08-04] MEDS: SODIUM CHLOR 0.9% 1000 ML INJ 1,000 ML IV SCH ×4 (03:20→23:20)
[2017-08-04] MEDS ORDERED: POTASSIUM PHOSPHATE MONOBASIC 500 MG TAB PO ONE (05:45)
[2017-08-04] MEDS ORDERED: POTASSIUM CHLORIDE 20 MEQ CONTROLLED RELEASE TAB PO ONE (05:45)
[2017-08-04] MEDS: HEPARIN SODIUM - SQ 10,000 UNITS/ML VIAL SQ SCH (06:14)
[2017-08-04] MEDS: PIPERACIL-TAZO 3.375 GM PREMIX 50 ML IV SCH ×2 (06:16→10:29)
[2017-08-04] MEDS: MORPHINE SULFATE 2 MG/ML INJ IV PUSH PRN ×3 (06:16→23:47)
[2017-08-04] MEDS: MAGNESIUM HYDROXIDE SUSP 30 ML CUP PO PRN (06:19)
[2017-08-04] MEDS ORDERED: VALSARTAN 40 MG TAB PO SCH (09:00)
[2017-08-04] MEDS ORDERED: HYDROCHLOROTHIAZIDE 12.5 MG CAP PO SCH (09:00)
[2017-08-04] MEDS: VITAMIN E 400 UNIT CAP PO SCH (09:13)
[2017-08-04] MEDS: DOCUSATE SODIUM 50 MG/SENNA 8.6 MG TAB PO SCH ×2 (09:14→20:35)
[2017-08-04] MEDS: PANTOPRAZOLE SOD 40 MG DELAYED RELEASE TAB PO SCH (09:14)
[2017-08-04] MEDS: SODIUM CHLORIDE 0.9% FLUSH 10 ML FLUSH IV FLUSH SCH ×2 (09:14→20:36)
[2017-08-04] MEDS: ASPIRIN 81 MG CHEW TAB CHEW SCH (09:14)
[2017-08-04] MEDS: CHOLECALCIFEROL (VIT D3) 1000 UNIT TAB PO SCH (09:14)
--- NOTE | 2017-08-04 09:27 | PD.CONS ---
HPI Consult Requested By Primary Care Physician No Primary Care Physician History of Present Illness 76-year-old male with a past medical history of CAD status post 5- vessel CABG, hyperlipidemia, and hypertension that presents to the [facility] with a chief complaint of right lower quadrant pain of 2 days duration. He describes the pain as 10/10 burning pain. Patient states that he was remodeling in an apartment on Wednesday 08/01 and did well all day. He went to bed that night and woke up around 4 AM on morning with severe right back pain that radiated to his right lower quadrant/suprapubic area associated with fever. Sepsis present on admission MSSA bacteremia (on verigene testing BCX positive for methicillin sensitive staph). Cardiology consulted for new onset Afib with RVR. Review of Systems Consitutional: DENIES: Fatigue, Fever, Chills, Weight gain, Weight loss Eyes: DENIES: Amaurosis Fugax, Change in vision HEENT: DENIES: Lightheadedness, Change in hearing Respiratory: DENIES: See HPI, Cough, Snoring, Shortness of breath, Wheezing, Sputum production Cardiovascular: DENIES: See HPI, Chest pain, Palpitations, Syncope, Tachycardia Gastrointestinal: DENIES: Nausea, Vomiting, Change in bowel habits, Reflux, Bloody stools, Melena Genitourinary: DENIES: Urinary incontinence, Difficulty voiding Integumentary: DENIES: Rash Neurologic: DENIES: Tingling or numbness, Memory problems, Poor Balance, Stroke symptoms Musculoskeletal: DENIES: Joint pain, Muscle pain, Limited range of motion, Back pain Psychiatric: DENIES: Anxiety, Depression, Sleep disturbances Hematologic: DENIES: Bruising tendencies, Bleeding tendencies Endocrine: DENIES: Weight gain, Weight loss, Thyroid disease Past Family Social History Allergies: Coded Allergies: No Known Allergies (Unverified , 08/03/17) Past Medical History Coronary artery disease status post 5 vessel CABG Hypertension Hyperlipidemia Past Surgical History Five-vessel CABG in 2010 Back surgery for a slipped disc Cholecystectomy Appendectomy Reported Medications Reported Meds & Active Scripts Active Reported [place]-3 Fish Oil/Vitamin (Fish Oil-Cholecalciferol) 1,000-1,000 Mg Cap 1 Cap PO DAILY Vitamin E 200 Unit Cap 500 Units PO DAILY Vitamin D3 (Cholecalciferol) 1,000 Unit Cap 1,000 Units PO DAILY Vitamin C (Ascorbic Acid) 250 Mg Tab 1,000 Mg PO Aspirin 81 Mg Chew 162 Mg CHEW DAILY Lipitor (Atorvastatin Calcium) 20 Mg Tab 20 Mg PO HS Hydrochlorothiazide 12.5 Mg Tab 12.5 Mg PO DAILY Diovan (Valsartan) 40 Mg Tab 40 Mg PO DAILY Metoprolol Succinate ER 24 HR (Metoprolol Succinate) 25 Mg Tab 12.5 Mg PO HS Active Ordered Medications Current Medications Medications (Trade) Dose Ordered Sig/Lelia Route Start Time Stop Time Status Last Admin (NS Flush) 2 ml UNSCH PRN IV FLUSH 08/03/17 12:45 (NS Flush) 2 ml BID IV FLUSH 08/03/17 21:00 08/04/17 09:14 (Aspirin Chew) 162 mg DAILY CHEW 08/04/17 09:00 08/04/17 09:14 (Lipitor) 20 mg HS PO 08/03/17 21:00 08/03/17 23:14 (Vitamin D3) 1,000 units DAILY PO 08/04/17 09:00 08/04/17 09:14 (Microzide) 12.5 mg DAILY PO 08/04/17 09:00 Future Hold (Diovan) 40 mg DAILY PO 08/04/17 09:00 Future Hold (Vitamin E) 400 units DAILY PO 08/04/17 09:00 08/04/17 09:13 (Pill Splitter) 1 ea UNSCH PRN OTHER 08/03/17 13:00 Sodium Chloride 1,000 ml @ 150 mls/hr Q6H40M IV 08/03/17 14:00 08/03/17 17:46 (Tylenol) 650 mg Q6H PRN PO 08/03/17 13:15 08/03/17 14:06 (Zofran Inj) 4 mg Q6H PRN IV PUSH 08/03/17 13:15 (Protonix) 40 mg DAILY PO 08/04/17 09:00 08/04/17 09:14 (Heparin Inj) 5,000 units Q8H SQ 08/03/17 15:00 08/04/17 06:14 (Toprol Xl) 12.5 mg HS PO 08/03/17 15:45 08/03/17 23:14 (Missy-Colace) 1 tab BID PO 08/03/17 21:00 08/04/17 09:14 (Milk Of Magnesia Liq) 30 ml Q12H PRN PO 08/03/17 15:45 08/04/17 06:19 (Senokot) 17.2 mg Q12H PRN PO 08/03/17 15:45 (Dulcolax Supp) 10 mg DAILY PRN RECTAL 08/03/17 15:45 (Lactulose Liq) 30 ml DAILY PRN PO 08/03/17 15:45 Piperacillin Sod/ Tazobactam Sod 50 ml @ 100 mls/hr Q6H IV 08/03/17 23:00 08/04/17 06:16 Pharmacy Profile Note 0 ml @ 0 mls/hr UNSCH OTHER 08/03/17 22:00 (Morphine Inj) 2 mg Q3HR PRN IV PUSH 08/04/17 01:30 08/04/17 06:16 ([place] 5-325 Mg) 1 tab Q4H PRN PO 08/04/17 01:30 ([place] 10-325 Mg) 1 tab Q4H PRN PO 08/04/17 01:30 08/04/17 02:24 Family History Uncles, cousins and brother have had disease No history of cancer or strokes in his family Social History Lives seasonally in [facility], from [place] Smoked for 10 years from age [age] 1-2 drinks a day, 3-4 drinks a week Physical Exam Vital Signs Vital Signs Date Time Temp Pulse Resp B/P (MAP) Pulse Ox O2 Delivery O2 Flow Rate FiO2 08/04/17 04:00 85 08/04/17 04:00 99.6 85 18 102/64 (77) 93 08/04/17 01:00 84 08/04/17 00:52 18 08/04/17 00:00 80 08/03/17 23:00 96 08/03/17 23:00 99.3 90 18 108/64 (79) 94 08/03/17 22:00 106 08/03/17 21:00 114 08/03/17 20:00 103.0 133 24 120/73 (89) 91 08/03/17 19:00 103.0 133 24 120/73 (89) 91 08/03/17 18:08 106 08/03/17 15:32 19 08/03/17 15:07 100.8 117 20 116/69 (85) 94 08/03/17 15:00 08/03/17 14:06 103.0 119 18 135/80 (98) 94 Room Air 08/03/17 12:39 87 18 128/75 (92) 94 Room Air 08/03/17 09:52 101.6 93 18 143/74 (97) 95 Room Air 08/03/17 09:51 95 Room Air Physical Exam GENERAL: Well-nourished, well-developed patient. SKIN: Warm and dry. HEAD: Normocephalic. EYES: No scleral icterus. No injection or drainage. NECK: Supple, trachea midline. No JVD or lymphadenopathy. CARDIOVASCULAR: Regular rate and rhythm without murmurs, gallops, or rubs. RESPIRATORY: Breath sounds equal bilaterally. No accessory muscle use. GASTROINTESTINAL: Abdomen soft, non-tender, nondistended. EXTREMITIES: No cyanosis, or edema. NEUROLOGICAL: Awake, alert, and oriented x 3. Non-focal. Laboratory Laboratory Tests Test 08/03/17 09:33 08/03/17 19:22 08/03/17 21:05 08/04/17 01:22 Urine Color YELLOW Urine Turbidity CLEAR Urine pH 7.0 Urine Specific [place] 1.018 Urine Protein 30 Urine Glucose (UA) NEG Urine Ketones TRACE Urine Occult Blood SMALL Urine Nitrite NEG Urine Bilirubin NEG Urine Urobilinogen 2.0 Urine Leukocyte Esterase NEG Urine RBC 30 Urine WBC LESS THAN 1 Urine Mucus FEW Microscopic Urinalysis Comment CULT NOT INDICATED Lactic Acid Level 1.4 Troponin I 0.10 0.14 B-Type Natriuretic Peptide 414 344 Thyroid Stimulating Hormone 3rd Gen 0.876 White Blood Count 11.4 Red Blood Count 4.07 Hemoglobin 12.0 Hematocrit 35.8 Mean Corpuscular Volume 88.1 Mean Corpuscular Hemoglobin 29.5 Mean Corpuscular Hemoglobin Concent 33.5 Red Cell Distribution Width 13.8 Platelet Count 102 Mean Platelet Volume 8.3 Neutrophils (%) (Auto) 89.1 Lymphocytes (%) (Auto) 4.7 Monocytes (%) (Auto) 6.0 Eosinophils (%) (Auto) 0.0 Basophils (%) (Auto) 0.2 Neutrophils # (Auto) 10.2 Lymphocytes # (Auto) 0.5 Monocytes # (Auto) 0.7 Eosinophils # (Auto) 0.0 Basophils # (Auto) 0.0 CBC Comment DIFF FINAL Differential Comment Blood Urea Nitrogen 14 Creatinine 1.01 Random Glucose 114 Total Protein 5.9 Albumin 2.7 Calcium Level 7.7 Phosphorus Level 2.3 Magnesium Level 2.0 Alkaline Phosphatase 56 Aspartate Amino Transf (AST/SGOT) 28 Alanine Aminotransferase (ALT/SGPT) 27 Total Bilirubin 2.1 Sodium Level 139 Potassium Level 3.4 Chloride Level 103 Carbon Dioxide Level 27.7 Anion Gap 8 Estimat Glomerular Filtration Rate 72 Test 08/04/17 07:20 Troponin I 0.11 Date/Time Source Procedure Growth Status 08/03/17 10:05 Blood Peripheral Aerobic Blood Culture Pending Received 08/03/17 10:05 Blood Peripheral Anaerobic Blood Culture Pending Received Result Diagram: 08/04/17 0122 08/04/17 0122 Imaging Last Impressions Abdomen/Pelvis CT 08/03/17 0955 Signed Impressions: Service Date/Time: Thursday, August 03, 2017 11:14 - CONCLUSION: 1. No drainable fluid collection/abscess status post appendectomy. 2. Marginally prominent jejunal loops consistent with mild adynamic ileus. 3. Ancillary findings, as above. Javi Renee MD Abdomen Ultrasound 08/03/17 0000 Signed Impressions: Service Date/Time: Thursday, August 03, 2017 13:35 - CONCLUSION: Unremarkable. Etiology for abdominal pain is not evident. Keyur Miguel MD FACR Assessment and Plan Problem List: (1) Atrial fibrillation with RVR ICD Codes: I48.91 - Unspecified atrial fibrillation Plan: New onset atrial fibrillation in the setting on infectious process/sepsis /unknown source. Paroxysmal Afib this AM. No CV complaints. Troponin minimally elevated likely due to demand ischemia. Recommendations: 1. Increase Lopressor 25mg PO BID 2. Cont Telemetry 3. 2Decho 4. Tx underlying infectious process 5. Consider ID consult 6. Cont ASA, statin and ARB 7. Start Heparin drip for Afib Thank you fo the opportunity to take part in the care o this patient Will be available on a PRN basis for any questions or concerns (2) Fever ICD Codes: R50.9 - Fever, unspecified Status: Acute (3) Hematuria ICD Codes: R31.9 - Hematuria, unspecified Status: Acute (4) Leukocytosis ICD Codes: D72.829 - Elevated white blood cell count, unspecified Status: Acute (5) Right lower quadrant abdominal pain ICD Codes: R10.31 - Right lower quadrant pain Status: Acute Italo Duff MD Aug 04, 2017 09:27
[2017-08-04] MEDS: TAMSULOSIN HCL 0.4 MG CAP PO SCH ×2 (10:29→20:35)
[2017-08-04] MEDS ORDERED: GADODIAMIDE PF 287 MG/ML 20 ML VIAL (for RAD MRI) IVCONTRAST ONE (11:55)
--- NOTE | 2017-08-04 12:32 | RADRPT ---
EXAM DATE/TIME: 08/04/2017 11:18 [facility] COMPARISON: No previous studies available for comparison. INDICATIONS : Urinary retention. CONTRAST: 18 cc Omniscan (gadodiamide) IV MEDICAL HISTORY : Cardiovascular disease SURGICAL HISTORY : Fusion, lumbar. CABG Cholecystectomy. Appenedctomy ENCOUNTER: Initial ACUITY: 2 day PAIN SCORE: 2/10 LOCATION: Paraspinal TECHNIQUE: Multiplanar multisequence MRI of the lumbar spine was performed with and without contrast. FINDINGS: Alignment: Slight retrolisthesis is noted of L1 on L2. Lumbar alignment is otherwise well preserved. Osseous structures and facet joints: Post surgical changes following laminectomy and fusion are identified at the L3-4 level. There is kathy dence of posterior bony grafting as well as a posterior fusion apparatus. Spinal canal and neural for leyla through the fused segments are widely patent. Significant posterior epidural effacement is identified at L1-2, L2-3 and L4-5. There is facet arthro alex and ligamentous thickening causing moderate to severe spinal stenosis. Moderate narrowing is no shell at L1-2 with moderate to severe narrowing at L2-3 and L4-5. Periarticular enhancement and inflamm ation is seen surrounding the right L1-2 facet joint. Advanced hypertrophic facet arthropathy is identified at L4-5 especially on the right. Intervertebral disc spaces: Mild to moderate degenerative change with disc space narrowing are noted. There is mild annular bulgi ng at L1-2 and L2-3. There is no significant disc herniation. Neurologic structures: There are no enhancing epidural or intradural abnormalities. CONCLUSION: 1. Moderate to severe central spinal stenosis at L1-2, L2-3 and L4-5 as described. 2. Postsurgical changes at L3 and L4 following laminectomy and fusion. 3. Mild inflammatory arthropathy of the right L1-2 facet joint. 4. Mild to moderate degenerative disc disease. 5. No evidence of acute disc herniation or abnormal bony enhancement. Haroon Strauss MD on August 04, 2017 at 12:16 Board Certified Radiologist. This report was verified electronically.
--- NOTE | 2017-08-04 12:42 | RADRPT ---
EXAM DATE/TIME: 08/04/2017 11:18 [facility] COMPARISON: No previous studies available for comparison. INDICATIONS : Urinary retntion. CONTRAST: 18 cc Omniscan (gadodiamide) IV MEDICAL HISTORY : Cardiovascular disease SURGICAL HISTORY : CABG Fusion, lumbar. Cholecystectomy. Appenedctomy ENCOUNTER: Initial ACUITY: 2 day PAIN SCORE: 3/10 LOCATION: Paraspinal TECHNIQUE: Multiplanar multisequence MRI examination of the sacrum/coccyx was performed. FINDINGS: BONE/CARTILAGE: Bone marrow signal is homogeneous. Articular cartilage signal is within normal limits. MUSCLES/TENDONS: All of the visualized muscles and tendons are intact. MISCELLANEOUS: Neurovascular structures are within normal limits. The prostate is enlarged measuring 61 cc in volume. Significant BPH is identified with multiple nodules throughout the transition zone. Abnormal signal intensity and decreased volume is identified along the right peripheral zone. CONCLUSION: 1. Prostatomegaly with BPH. 2. Abnormal appearance of the right peripheral zone. Correlation with PSA is suggested. 3. Normal sacrum and coccyx. 4. No evidence of focal bony lesions or local regional lymphadenopathy. Haroon Strauss MD on August 04, 2017 at 12:35 Board Certified Radiologist. This report was verified electronically.
[2017-08-04] MEDS: HEPARIN-D5W 25,000 U/250 ML 250 ML IV PRN (12:47)
--- NOTE | 2017-08-04 12:50 | EKG ---
Date Performed: 08/03/2017 Time Performed: 18:27:10 PTAGE: 76 years EKG: ATRIAL FIBRILLATION WITH RAPID VENTRICULAR RESPONSE INFERIOR MYOCARDIAL INFARCTION OF UNDET ERMINED AGE Diffused T-wave changes are nonspecific ABNORMAL ECG NO PREVIOUS TRACING DOCTOR: Franck Clarke Interpretating Date/Time 08/04/2017 12:48:28
--- NOTE | 2017-08-04 12:51 | EKG ---
Date Performed: 08/04/2017 Time Performed: 01:47:42 PTAGE: 76 years EKG: Atrial fibrillation with controlled ventricular response Inferior wall myocardial infarctio n of undetermined age Nonspecific T-wave change Compared to previous tracing, heart rate is slower, o therwise no significant change. Abnormal ECG PREVIOUS TRACING : 08/03/2017 18.27 DOCTOR: Franck Clarke Interpretating Date/Time 08/04/2017 12:49:46
[2017-08-04 13:26] LABS: HEMATOCRIT 34.9 % (39.0-51.0); MEAN CELL VOLUME 86.7 FL (80.0-100.0); MEAN CORPUSCULAR HEMOGLOBIN 30.5 PG (27.0-34.0); MEAN CORPUSCULAR HGB CONC 35.2 % (32.0-36.0); PLATELET COUNT 94 TH/MM3 (150-450); RED BLOOD COUNT 4.03 MIL/MM3 (4.50-5.90); RED CELL DISTRIBUTION WIDTH 13.8 % (11.6-17.2)
[2017-08-04 13:30] LABS: REVIEW FLAG FINAL
[2017-08-04 13:36] LABS: APTT (PATIENT) 30.7 SEC (24.3-30.1); INTERNATIONAL NORMALIZED RATIO 1.1 RATIO; PROTHROMBIN TIME - PATIENT 12.3 SEC (9.8-11.6)
--- NOTE | 2017-08-04 14:11 | ECHRPT ---
Indication: ATRIAL FIB/FLUTTER CONCLUSIONS Technically difficult study The left atrial size is moderately dilated. [id number] mitral valve regurgitation. The estimated pulmonary arterial pressure is 46.2 mmHg. There is mild tricuspid valve regurgitation. Normal left ventricular size. Wall thickness is normal. The left ventricular systolic function is grossly normal on limited imaging. BP: 102 / 64 HR: Rhythm: Atrial fibrillation, Atrial flut ter MEASUREMENTS (Male / Female) Normal Values Technical Quality:technically difficult study 2D ECHO LV Diastolic Diameter PLAX 4.8 cm 4.2 - 5.9 / 3.9 - 5.3 cm LV Systolic Diameter PLAX 3.1 cm IVS Diastolic Thickness 0.9 cm 0.6 - 1.0 / 0.6 - 0.9 cm LVPW Diastolic Thickness 0.9 cm 0.6 - 1.0 / 0.6 - 0.9 cm LV Relative Wall Thickness 0.4 RV Internal Dim ED PLAX 3.7 cm LVOT Diameter 2.0 cm Aortic Root Diameter 3.1 cm LA Systolic Diameter LX 3.6 cm 3.0 - 4.0 / 2.7 - 3.8 cm M-MODE AV Cusp Separation MM 2.3 cm DOPPLER AV Peak Velocity 106.7 cm/s AV Peak Gradient 4.6 mmHg AV Mean Gradient 3.0 mmHg AV Velocity Time Integral 19.5 cm LVOT Peak Velocity 78.4 cm/s LVOT Peak Gradient 2.5 mmHg LVOT Velocity Time Integral 13.5 cm AV Area Cont Eq vti 2.2 cm AV Area Cont Eq pk 2.3 cm Mitral E Point Velocity 107.6 cm/s LV E' Lateral Velocity 13.8 cm/s Mitral E to LV E' Lateral Ratio 7.8 LV E' Septal Velocity 10.0 cm/s Mitral E to LV E' Septal Ratio 10.7 TR Peak Velocity 301.0 cm/s TR Peak Gradient 36.2 mmHg Right Atrial Pressure 10.0 mmHg Pulmonary Artery Systolic Pressu 46.2 mmHg Right Ventricular Systolic Press 46.2 mmHg PV Peak Velocity 68.7 cm/s PV Peak Gradient 1.9 mmHg FINDINGS LEFT VENTRICLE Normal left ventricular size. Wall thickness is normal. The left ventricular systolic function is grossly normal on limited imaging. RIGHT VENTRICLE Normal right ventricular size and systolic function. LEFT ATRIUM The left atrial size is moderately dilated. RIGHT ATRIUM The right atrial size is normal. ATRIAL SEPTUM Normal atrial septal thickness without atrial level shunting by limited color doppler interrogation. AORTA The aortic root and proximal ascending aorta are normal in size on limited imaging. MITRAL VALVE [id number] mitral valve regurgitation. AORTIC VALVE Trileaflet aortic valve. No aortic valve stenosis or regurgitation. TRICUSPID VALVE The estimated pulmonary arterial pressure is 46.2 mmHg. There is mild tricuspid valve regurgitation. PULMONARY VALVE No pulmonary valve regurgitation or stenosis. VESSELS The inferior vena cava is normal in size. PERICARDIUM No pericardial effusion. Seamus Hanson MD, FACC (Electronically Signed) Final Date:04 August 2017 14:10
--- NOTE | 2017-08-04 15:49 | HHI.FPPN ---
Subjective Remarks Patient initially with urinary retention this morning, resolved by the afternoon after he put out 400 mls of urine with no post-void residual urine in the bladder. Urine is continuing to appear bloody per report. He does not have a chronic history of urinary retention, so this is a new problem. He is also complaining of weakness in both legs when he tries to walk, however, his leg strength is normal during neuro examination. His white count has trended down from 17.1 to 9.0 since yesterday. He had a Tmax of 103 at 20:00 yesterday, and is now afebrile. He continues to have right lower quadrant pain that is improved from yesterday. Has good appetite. Started on heparin drip (in case procedure is needed) and Diltiazem drip for atrial fibrillation. This is his first known episode of atrial fibrillation. He continues vancomycin and Zosyn for broad antibiotic coverage. His blood cultures were reported this morning to be positive for gram positive cocci. (Veto Moore MD R3) Objective Vitals Vital Signs Date Time Temp Pulse Resp B/P (MAP) Pulse Ox O2 Delivery O2 Flow Rate FiO2 08/04/17 14:05 88 08/04/17 13:06 93 08/04/17 12:45 99.2 93 18 122/79 (93) 95 08/04/17 11:00 84 08/04/17 10:01 92 08/04/17 09:00 87 08/04/17 08:00 98 08/04/17 08:00 97.8 98 18 108/68 (81) 94 08/04/17 07:00 83 08/04/17 04:00 85 08/04/17 04:00 99.6 85 18 102/64 (77) 93 08/04/17 01:00 84 08/04/17 00:52 18 08/04/17 00:00 80 08/03/17 23:00 96 08/03/17 23:00 99.3 90 18 108/64 (79) 94 08/03/17 22:00 106 08/03/17 21:00 114 08/03/17 20:00 103.0 133 24 120/73 (89) 91 08/03/17 19:00 103.0 133 24 120/73 (89) 91 08/03/17 18:08 106 08/03/17 15:32 19 I/O 08/03/17 08/03/17 08/03/17 08/04/17 08/04/17 08/04/17 07:00 15:00 23:00 07:00 15:00 23:00 Intake Total 1100 ml 1418 ml 170 ml Output Total 200 ml 450 ml Balance 1100 ml 1218 ml -280 ml Intake Oral 400 ml 120 ml IV Total 1100 ml 1018 ml 50 ml Output Urine Total 200 ml 450 ml # Bowel Movements 0 0 (Veto Moore MD R3) Result Diagram: 08/04/17 1245 08/04/17 0122 Imaging Last 72 hours Impressions Sacrum/Coccyx MRI 08/04/17 0832 Signed Impressions: Service Date/Time: Friday, August 04, 2017 11:18 - CONCLUSION: 1. Prostatomegaly with BPH. 2. Abnormal appearance of the right peripheral zone. Correlation with PSA is suggested. 3. Normal sacrum and coccyx. 4. No evidence of focal bony lesions or local regional lymphadenopathy. Haroon Strauss MD Lumbar Spine MRI 08/04/17 0832 Signed Impressions: Service Date/Time: Friday, August 04, 2017 11:18 - CONCLUSION: 1. Moderate to severe central spinal stenosis at L1-2, L2-3 and L4-5 as described. 2. Postsurgical changes at L3 and L4 following laminectomy and fusion. 3. Mild inflammatory arthropathy of the right L1-2 facet joint. 4. Mild to moderate degenerative disc disease. 5. No evidence of acute disc herniation or abnormal bony enhancement. Haroon Strauss MD Abdomen/Pelvis CT 08/03/17 0955 Signed Impressions: Service Date/Time: Thursday, August 03, 2017 11:14 - CONCLUSION: 1. No drainable fluid collection/abscess status post appendectomy. 2. Marginally prominent jejunal loops consistent with mild adynamic ileus. 3. Ancillary findings, as above. Javi Renee MD Abdomen Ultrasound 08/03/17 0000 Signed Impressions: Service Date/Time: Thursday, August 03, 2017 13:35 - CONCLUSION: Unremarkable. Etiology for abdominal pain is not evident. Keyur Miguel MD FACR Objective Remarks GENERAL: Patient sitting up in chair, no acute distress. SKIN: Has abrasions on bilateral knees, works on his knees a lot HEENT: Normocephalic, no nasal discharge NECK: Supple, no meningeal signs, no lymphadenopathy CARDIOVASCULAR: Regular rate and rhythm without murmurs, gallops, or rubs. Pulses peripherally are normal. Cap refill is normal. No signs of septic emboli. RESPIRATORY: Clear to auscultation. Breath sounds equal bilaterally. No wheezes , rales, or rhonchi. GASTROINTESTINAL: Tender to palpation in the groin area on the right, mildly distended abdomen with tympany, no rebound or guarding, no organomegaly. MSK: Pain with palpation of the lumbar vertebral bodies with some paraspinal tenderness as well. Neuro: Awake, alert, PERRLA, EOMI, CN intact, normal strength and sensation distally. Anal sphincter tone is normal, normal anal sphincter reflex : Prostate is smooth, normal in size on MICHAEL (Veto Moore MD R3) A/P Assessment and Plan 76-year-old male presented on 08/03/17 with right lower quadrant/right groin pain, meeting sepsis criteria with unknown source, blood cultures positive for gram positive cocci. With acute urinary retention overnight. Also with new onset atrial fibrillation with RVR. Infectious disease, neurosurgery, and cardiology are on board. Discharge Planning Pending resolution of fevers, leukocytosis, good heart rate control, anticoagulated appropriately, resolution of acute urinary retention, and recommendations from neurosurgery, cardiology, and infectious disease. (Veto Moore MD R3) Attending Attestation Patient seen and examined with the resident team. Case reviewed and discussed Agree with plan of care as discussed with me and documented in the resident note. Appreciate input of consultants, spoke with Dr. Silver. Appreciate antibiotic recommendations. NS consultation pending. (Ana Rojo MD) Problem List: (1) Sepsis ICD Codes: A41.9 - Sepsis, unspecified organism Status: Acute Plan: Initially meeting sepsis criteria with leukocytosis and fevers, positive blood culture with gram positive cocci. Lactate normal. Elevated pulse, found to be in atrial fibrillation with RVR. Maintaining normal blood pressures, otherwise hemodynamically stable. This morning with leukocytosis resolved, latest fever last night up to 103. Now temperatures normal. UA that is bloody but no nitrites or leukocyte esterase, will repeat UA due to continuing hematuria. MRI now showing any epidural abscess. CT abdomen showing no source of infection. Has abrasions on knees that could be source of possible entrance. No history of IV drug use. - Follow up repeat urinalysis. - Check chest x-ray - May need chest CT scan if no source found - Infectious disease on board, await recommendations - Follow up ID and sensitivities of blood cultures, adjust antibiotics as needed - Repeat blood cultures until negative - 2D ECHO pending. May need transesophageal echo if negative for vegetation, defer to cardiology. - Continue vancomycin and Zosyn, started 08/03/17. (2) Urinary retention ICD Codes: R33.9 - Retention of urine, unspecified Status: Acute Plan: Acute urinary retention with gross hematuria. Concern for moderate to severe lumbar stenosis, possible source of urinary retention. Also with enlarged prostate noted on MRI. No epidural abscess noted on MRI of back. Finally did void without significant post-void residual urine. Lower extremity weakness subjectively, but on neuro exam strength is normal. Normal rectal tone on examination. Enlarged prostate not appreciated on exam but is noted on imaging. Spoke with neurosurgeon Dr. Rubin on the phone and stat consult order was placed. - Consult urology, appreciate recommendations - Stat consult to neurosurgery for possible cauda equina, appreciate recommendations. - Check PSA. - Catheter if continuing to retain urine. (3) Atrial fibrillation with RVR ICD Codes: I48.91 - Unspecified atrial fibrillation Plan: Patient initially presented with regular rate and rhythm but developed new onset A. fib with RVR. Received 10 mg IV diltiazem bolus and was transitioned to diltiazem drip with eventual resolution of RVR but remains in A. fib. Troponins elevated but flat on trend. TSH WNL at 0.876. BNP mildly elevated. - 2D ECHO pending - Cardiology consult for new onset A. fib - Diltiazem drip, now discontinued. Can give metoprolol or Cardizem if rapid rate and blood pressure can handle it. - Started on heparin drip (in case of procedure), likely bridge to a NOAC when stable. (4) Right lower quadrant abdominal pain ICD Codes: R10.31 - Right lower quadrant pain Status: Acute Plan: Differential diagnoses includes resolved right kidney stone, early colitis, septic right hip joint, muscle spasm with radiculopathy, lumbar stenosis with radiculopathy, spinal abscess. Urine positive for occult blood and 30 RBCs. Renal US essentially normal except for small upper pole cyst also seen on CT abdomen. No hydronephrosis, stone, or mass on either CT or US. Mild adynamic ileus on CT scan. Last bowel movement was on Wednesday 08/01 and was normal but larger than usual. MRI of low back shows moderate to severe lumbar stenosis. -Mascot for pain, Morphine for breakthrough pain. -Constipation regimen -Neurosurgery consulted for severe lumbar stenosis and neurological findings, appreciate recommendations. -Urine filter for possible stone -Urology on board for urological symptoms. (5) Thrombocytopenia ICD Codes: D69.6 - Thrombocytopenia, unspecified Status: Acute Plan: Platelets 120 with normal hemoglobin and hematocrit, dropped to 90's with heparin drip. - Check HIT - Monitor platelets - Monitor for spontaneous bleeding (6) Hyperbilirubinemia ICD Codes: E80.6 - Other disorders of bilirubin metabolism Status: Acute Plan: Total bilirubin of 2.3 with breakdown as follows: Direct bilirubin 0.5, indirect bilirubin 1.8. May be Gilbert versus acute hemolysis. Also with blood in urine. - Will check hepatitis profile - Check LDH, haptoglobin (7) Chronic Medical Problems Status: Chronic Plan: CAD: Continue metoprolol ER 12.5 mg by mouth and aspirin 162 mg by mouth daily Hypertension: Holding valsartan and hydrochlorothiazide due to Cardizem drip, restart gradually (8) FEN/DVT PPX/GI PPX/Nursing Orders Plan: Fluids: NS @ 155 mls/hr IV Electrolytes: Will monitor and replace as needed Nutrition: NPO in case procedure is needed, may restart if there will be no procedure DVT Prophylaxis: Lovenox 40mg daily GI Prophylaxis: Protonix 40mg PO daily Constipation prophylaxis: Pericolace 1 tab PO BID scheduled, milk of magnesia PRN PRN Medications Tylenol 650 mg by mouth every 4 hours when necessary pain 1-10 or temperature greater than 100.4F Zofran 4 mg IV push every 6 hours when necessary nausea vomiting Mascot 325-5 mg 1 tab by mouth every 6 hours when necessary pain 5-7 Mascot 325-10 mg 1 tab by mouth every 6 hours when necessary pain 8-10 Morphine 2 mg IV push every 3 hours when necessary breakthrough pain -Vitals Q4h -Monitor I's and O's -youth nutritional monitor with telemetry with continuous vital signs -Activity OOB with assistance -PT to assist with ambulation -Case management consult to assist with discharge disposition (Veto Moore MD R3) Problem Qualifiers (1) Sepsis: Qualified Codes: A41.9 - Sepsis, unspecified organism Veto Moore MD R3 Aug 04, 2017 15:49 Ana Rojo MD Aug 06, 2017 08:54
--- NOTE | 2017-08-04 15:57 | PD.ID.CON ---
History of Present Illness Service ID Consult Requested By / Reason for Consult Evaluation and Mment of Sepsis, staph bacteremia. Primary Care Physician No Primary Care Physician Diagnoses: History of Present Illness is a 76 y/o CM with PMHx of Chronic back pain s/p lumbar spine surgery with hardware in place. Patient also reports seeing a pain medicine physician with injection into ? epidural space in February 2017. 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 Patient past medical history is also significant for h/o CAD s/p CABG. With this background he presents to the [facility] ED with chief complaint of right lower quadrant pain of 2 days duration which starts in lower back and radiates forward. He describes the pain as 10/10 pain that mata like fire. Patient states that he was remodeling in an apartment on Sunday and did well all day. He went to bed that night and woke up around 4 AM on morning with severe right back pain that radiated to his right lower quadrant/suprapubic area. Patient states that the pain was so severe that he could not move any part of his body without feeling pain. He was finally able to get himself out of bed and took 2 Aleve pills but could not do much the entire day and could barely walk. The pain initially subsided and then started to get worse again such that his friend convinced him to come to the ER. He has not been ill prior to this incident and denies any sick contacts. Patient gives history of high grade fevers 101 F prior to admission with chills. On admission, patient met sepsis criteria with WBC 17.2, HR 99 and sepsis workup initiated. Blood cultures drawn on admission positive for MSSA ID consulted for evaluation and Mment of MSSA bacteremia. On admission had CT Abd pelvis which did not help identify any acute process. Due to persistent back pain and acute retention of urine overnight patient underwent an MRI L spine and sacrum which showed spinal stenosis but no epidural abscess or discitis. Neurosurgery eval is pending. Review of Systems ROS Limitations: Poor Historian Constitutional: COMPLAINS OF: Fever, Chills, DENIES: Diaphoretic episodes, Fatigue, Weight gain, Weight loss, Dizziness, Change in appetite, Night Sweats Endocrine: DENIES: Heat/cold intolerance, Polydipsia, Polyuria, Polyphagia Eyes: DENIES: Blurred vision, Diplopia, Eye inflammation, Eye pain, Vision loss , Photosensitivity, Double Vision Ears, nose, mouth, throat: DENIES: Tinnitus, Hearing loss, Vertigo, Nasal discharge, Oral lesions, Throat pain, Hoarseness, Ear Pain, Running Nose, Epistaxis, Sinus Pain, Toothache, Odynophagia Respiratory: DENIES: Apneas, Cough, Snoring, Wheezing, Hemoptysis, Sputum production, Shortness of breath Cardiovascular: DENIES: Chest pain, Palpitations, Syncope, Dyspnea on Exertion , PND, Lower Extremity Edema, Orthopnea, Claudication Gastrointestinal: DENIES: Abdominal pain, Black stools, Bloody stools, Constipation, Diarrhea, Nausea, Vomiting, Difficulty Swallowing, Anorexia Genitourinary: DENIES: Sexual dysfunction, Urinary frequency, Urinary incontinence, Urgency, Hematuria, Dysuria, Nocturia, Penile Discharge, Testicular Pain, Testicular Swelling Musculoskeletal: DENIES: Joint pain, Muscle aches, Stiffness, Joint Swelling, Back pain, Neck pain Integumentary: DENIES: Abnormal pigmentation, Nail changes, Pruritus, Rash Hematologic/lymphatic: DENIES: Bruising, Lymphadenopathy Immunologic/allergic: DENIES: Eczema, Urticaria Neurologic: COMPLAINS OF: Abnormal gait, Headache, Localized weakness, Paresthesias, Seizures, Speech Problems, Tremor, Poor Balance Psychiatric: DENIES: Anxiety, Confusion, Mood changes, Depression, Hallucinations, Agitation, Suicidal Ideation, Homicidal Ideation, Delusions Except as stated in HPI: all other systems reviewed are Neg Past Family Social History Allergies: Coded Allergies: No Known Allergies (Unverified , 08/03/17) Past Medical History Coronary artery disease status post CABG Hypertension Hyperlipidemia Past Surgical History CABG in 2011 Back surgery for a slipped disc Cholecystectomy Appendectomy Reported Medications Reported Meds & Active Scripts Active Reported [place]-3 Fish Oil/Vitamin (Fish Oil-Cholecalciferol) 1,000-1,000 Mg Cap 1 Cap PO DAILY Vitamin E 200 Unit Cap 500 Units PO DAILY Vitamin D3 (Cholecalciferol) 1,000 Unit Cap 1,000 Units PO DAILY Vitamin C (Ascorbic Acid) 250 Mg Tab 1,000 Mg PO Aspirin 81 Mg Chew 162 Mg CHEW DAILY Lipitor (Atorvastatin Calcium) 20 Mg Tab 20 Mg PO HS Hydrochlorothiazide 12.5 Mg Tab 12.5 Mg PO DAILY Diovan (Valsartan) 40 Mg Tab 40 Mg PO DAILY Metoprolol Succinate ER 24 HR (Metoprolol Succinate) 25 Mg Tab 12.5 Mg PO HS Active Ordered Medications Current Medications Medications (Trade) Dose Ordered Sig/Lelia Route Start Time Stop Time Status Last Admin (NS Flush) 2 ml UNSCH PRN IV FLUSH 08/03/17 12:45 (NS Flush) 2 ml BID IV FLUSH 08/03/17 21:00 08/04/17 09:14 (Aspirin Chew) 162 mg DAILY CHEW 08/04/17 09:00 08/04/17 09:14 (Lipitor) 20 mg HS PO 08/03/17 21:00 08/03/17 23:14 (Vitamin D3) 1,000 units DAILY PO 08/04/17 09:00 08/04/17 09:14 (Microzide) 12.5 mg DAILY PO 08/04/17 09:00 Future Hold (Diovan) 40 mg DAILY PO 08/04/17 09:00 Future Hold (Vitamin E) 400 units DAILY PO 08/04/17 09:00 08/04/17 09:13 (Pill Splitter) 1 ea UNSCH PRN OTHER 08/03/17 13:00 Sodium Chloride 1,000 ml @ 150 mls/hr Q6H40M IV 08/03/17 14:00 08/04/17 16:51 (Tylenol) 650 mg Q6H PRN PO 08/03/17 13:15 08/03/17 14:06 (Zofran Inj) 4 mg Q6H PRN IV PUSH 08/03/17 13:15 (Protonix) 40 mg DAILY PO 08/04/17 09:00 08/04/17 09:14 (Missy-Colace) 1 tab BID PO 08/03/17 21:00 08/04/17 09:14 (Milk Of Magnesia Liq) 30 ml Q12H PRN PO 08/03/17 15:45 08/04/17 06:19 (Senokot) 17.2 mg Q12H PRN PO 08/03/17 15:45 (Dulcolax Supp) 10 mg DAILY PRN RECTAL 08/03/17 15:45 (Lactulose Liq) 30 ml DAILY PRN PO 08/03/17 15:45 Pharmacy Profile Note 0 ml @ 0 mls/hr UNSCH OTHER 08/03/17 22:00 (Morphine Inj) 2 mg Q3HR PRN IV PUSH 08/04/17 01:30 08/04/17 06:16 (Early Branch 5-325 Mg) 1 tab Q4H PRN PO 08/04/17 01:30 (Early [place] 10-325 Mg) 1 tab Q4H PRN PO 08/04/17 01:30 08/04/17 02:24 (Toprol Xl) 25 mg BID PO 08/04/17 21:00 (Flomax) 0.4 mg Q12HR PO 08/04/17 10:00 08/04/17 10:29 Vancomycin HCl 1500 mg/Sodium Chloride 515 ml @ 257.5 mls/ hr Q18H IV 08/04/17 18:00 08/04/17 17:34 Miscellaneous Information SPECIFIC LAB TO BE DRAWN:VANCO TROUGH DATE... ONCE ONCE .XX 08/06/17 05:45 08/06/17 05:46 Heparin Sodium/ Dextrose 250 ml @ 10 mls/hr TITRATE PRN IV 08/04/17 11:30 08/04/17 12:47 Cefazolin Sodium/ Dextrose 50 ml @ 100 mls/hr Q8H IV 08/04/17 16:00 08/04/17 16:51 Family History Uncles, cousins and brother have had disease No history of cancer or strokes in his family. Social History Lives seasonally in [facility], from [place] Smoked for 10 years from age [age] 1-2 drinks a day, 3-4 drinks a week Physical Exam Vital Signs Vital Signs Date Time Temp Pulse Resp B/P (MAP) Pulse Ox O2 Delivery O2 Flow Rate FiO2 08/04/17 15:01 88 08/04/17 15:00 98.9 102 18 110/68 (82) 96 08/04/17 14:05 88 08/04/17 13:06 93 08/04/17 12:45 99.2 93 18 122/79 (93) 95 08/04/17 11:00 84 08/04/17 10:01 92 08/04/17 09:00 87 08/04/17 08:00 98 08/04/17 08:00 97.8 98 18 108/68 (81) 94 08/04/17 07:00 83 08/04/17 04:00 85 08/04/17 04:00 99.6 85 18 102/64 (77) 93 08/04/17 01:00 84 08/04/17 00:52 18 08/04/17 00:00 80 08/03/17 23:00 96 08/03/17 23:00 99.3 90 18 108/64 (79) 94 08/03/17 22:00 106 08/03/17 21:00 114 08/03/17 20:00 103.0 133 24 120/73 (89) 91 08/03/17 19:00 103.0 133 24 120/73 (89) 91 08/03/17 18:08 106 Physical Exam GENERAL: This is a well-nourished, well-developed patient, in no apparent distress. SKIN: No rashes, ecchymoses or lesions. Cool and dry. HEAD: Atraumatic. Normocephalic. No temporal or scalp tenderness. EYES: Pupils equal round and reactive. Extraocular motions intact. No scleral icterus. No injection or drainage. ENT: Nose without bleeding, purulent drainage or septal hematoma. Throat without erythema, tonsillar hypertrophy or exudate. Uvula midline. Airway patent. NECK: Trachea midline.Supple, nontender, no meningeal signs. CARDIOVASCULAR: Regular rate and rhythm without murmurs, gallops, or rubs. RESPIRATORY: Clear to auscultation. Breath sounds equal bilaterally. No wheezes , rales, or rhonchi. GASTROINTESTINAL: Abdomen soft, non-tender, nondistended. MUSCULOSKELETAL: Extremities without clubbing, cyanosis, or edema. On left knee at level of knee chronic swelling with no obvious signs of infection. Back: surgical scar intact. Tenderness at approx middle of surgical scar. NEUROLOGICAL: Awake and alert. Grossly non focal. Able to transfer from bed to chair on his own. Psych cooperative IV line sites with no e.o infection. Laboratory Microbiology Date/Time Source Procedure Growth Status 08/04/17 13:58 Blood Peripheral Aerobic Blood Culture Pending Received 08/04/17 13:58 Blood Peripheral Anaerobic Blood Culture Pending Received Laboratory Tests Test 08/03/17 19:22 08/03/17 21:05 08/04/17 01:22 08/04/17 07:20 Lactic Acid Level 1.4 Troponin I 0.10 0.14 0.11 B-Type Natriuretic Peptide 414 344 Thyroid Stimulating Hormone 3rd Gen 0.876 White Blood Count 11.4 Red Blood Count 4.07 Hemoglobin 12.0 Hematocrit 35.8 Mean Corpuscular Volume 88.1 Mean Corpuscular Hemoglobin 29.5 Mean Corpuscular Hemoglobin Concent 33.5 Red Cell Distribution Width 13.8 Platelet Count 102 Mean Platelet Volume 8.3 Neutrophils (%) (Auto) 89.1 Lymphocytes (%) (Auto) 4.7 Monocytes (%) (Auto) 6.0 Eosinophils (%) (Auto) 0.0 Basophils (%) (Auto) 0.2 Neutrophils # (Auto) 10.2 Lymphocytes # (Auto) 0.5 Monocytes # (Auto) 0.7 Eosinophils # (Auto) 0.0 Basophils # (Auto) 0.0 CBC Comment DIFF FINAL Differential Comment Blood Urea Nitrogen 14 Creatinine 1.01 Random Glucose 114 Total Protein 5.9 Albumin 2.7 Calcium Level 7.7 Phosphorus Level 2.3 Magnesium Level 2.0 Alkaline Phosphatase 56 Aspartate Amino Transf (AST/SGOT) 28 Alanine Aminotransferase (ALT/SGPT) 27 Total Bilirubin 2.1 Sodium Level 139 Potassium Level 3.4 Chloride Level 103 Carbon Dioxide Level 27.7 Anion Gap 8 Estimat Glomerular Filtration Rate 72 Haptoglobin 227 Lactate Dehydrogenase 234 Test 08/04/17 12:45 White Blood Count 9.0 Red Blood Count 4.03 Hemoglobin 12.3 Hematocrit 34.9 Mean Corpuscular Volume 86.7 Mean Corpuscular Hemoglobin 30.5 Mean Corpuscular Hemoglobin Concent 35.2 Red Cell Distribution Width 13.8 Platelet Count 94 Mean Platelet Volume 8.5 Prothrombin Time 12.3 Prothromb Time International Ratio 1.1 Activated Partial Thromboplast Time 30.7 Date/Time Source Procedure Growth Status 08/04/17 13:58 Blood Peripheral Aerobic Blood Culture Pending Received 08/04/17 13:58 Blood Peripheral Anaerobic Blood Culture Pending Received Result Diagram: 08/04/17 1245 08/04/17 0122 Imaging Last Impressions Sacrum/Coccyx MRI 08/04/17 0832 Signed Impressions: Service Date/Time: Friday, August 04, 2017 11:18 - CONCLUSION: 1. Prostatomegaly with BPH. 2. Abnormal appearance of the right peripheral zone. Correlation with PSA is suggested. 3. Normal sacrum and coccyx. 4. No evidence of focal bony lesions or local regional lymphadenopathy. Haroon Strauss MD Lumbar Spine MRI 08/04/17 0832 Signed Impressions: Service Date/Time: Friday, August 04, 2017 11:18 - CONCLUSION: 1. Moderate to severe central spinal stenosis at L1-2, L2-3 and L4-5 as described. 2. Postsurgical changes at L3 and L4 following laminectomy and fusion. 3. Mild inflammatory arthropathy of the right L1-2 facet joint. 4. Mild to moderate degenerative disc disease. 5. No evidence of acute disc herniation or abnormal bony enhancement. Haroon Strauss MD Chest X-Ray 08/04/17 0000 Signed Impressions: Service Date/Time: Friday, August 04, 2017 15:42 - CONCLUSION: No acute cardiopulmonary process. Jorje Gallegos MD Abdomen/Pelvis CT 08/03/17 0955 Signed Impressions: Service Date/Time: Thursday, August 03, 2017 11:14 - CONCLUSION: 1. No drainable fluid collection/abscess status post appendectomy. 2. Marginally prominent jejunal loops consistent with mild adynamic ileus. 3. Ancillary findings, as above. Javi Renee MD Abdomen Ultrasound 08/03/17 0000 Signed Impressions: Service Date/Time: Thursday, August 03, 2017 13:35 - CONCLUSION: Unremarkable. Etiology for abdominal pain is not evident. Keyur Miguel MD FACR Assessment and Plan Assessment and Plan Sepsis present on admission MSSA bacteremia (on verigene testing BCX positive for methicillin sensitive staph) Abrasion on right toney of tibia: not large enough to explain high grade bacteremia. Acute worsening of lumbar back pain (? epidural vs early discitis) Chronic back pain (h/o spinal injections last one in February 2017) Acute retention of urine (BPH related vs Nerve compression from spinal pathology ) Spinal stenosis on imaging. Recs DC Zosyn IV DC Flagyl IV DC Levaquin Start Ancef 2 gm IV q8hrs for MSSA bacteremia. Continue Vanco IV till further confirmation on verigene. Will likely stop vanco in am depending on follow up exam. Follow cultures Follow clinically. Reviewed imaging. WBC scan to look for evidence of early discitis. D.w Dr.Verzal: needs treatment of bacteremia completed before can be cleared for neurosurgery. If surgery acutely needed please discuss with me. Todd pt and RN. Aviva Silver MD Aug 04, 2017 15:57
--- NOTE | 2017-08-04 16:00 | RADRPT ---
EXAM DATE/TIME: 08/04/2017 15:42 [facility] COMPARISON: No previous studies available for comparison. INDICATIONS : Fever Leukocytosis MEDICAL HISTORY : Cerebrovascular disease. Cardiovascular disease. Hypertension. SURGICAL HISTORY : Appendectomy. Cholecystectomy. ENCOUNTER: Subsequent ACUITY: 3 days PAIN SCORE: 0/10 LOCATION: Bilateral chest FINDINGS: A single view of the chest demonstrates the lungs to be symmetrically aerated without evidence of mas s, infiltrate or effusion. The cardiomediastinal contours are unremarkable. Osseous structures are intact with some degenerative spurring of the dorsal spine. Multiple median sternotomy wires are lilia sly intact. CONCLUSION: No acute cardiopulmonary process. Jorje Gallegos MD on August 04, 2017 at 15:57 Board Certified Radiologist. This report was verified electronically.
[2017-08-04] MEDS: ceFAZolin 2 GM PREMIX 50 ML IV SCH ×2 (16:51→23:42)
[2017-08-04] MEDS ORDERED: VANCOMYCIN 1,500 MG/NS 500 ML IV SCH ×2 (18:00)
[2017-08-04 19:24] LABS: APTT (PATIENT) 40.6 SEC (24.3-30.1)
[2017-08-04] MEDS: ATORVASTATIN 20 MG TAB PO SCH (20:35)
[2017-08-04] MEDS: METOPROLOL SUCCINATE 25 MG EXTENDED RELEASE TAB PO SCH (20:36)
[2017-08-05] VITALS (17 sets, daily range): BP systolic 118–138; BP diastolic 74–98; PULSE 12–111; RESP 18–22; TEMP 98.7–99.8; O2SAT 93–96
[2017-08-05 00:40] LABS: BLOOD, URINE MOD (NEG); COMMENT (UR) CULT NOT INDICATED; CULTURE IF INDICATED CULT NOT INDICATED; GLUCOSE,URINE NEG (NEG); KETONE, URINE TRACE mg/dL (NEG); NITRITE,URINE NEG (NEG); SQUAMOUS EPITHELIAL CELL URINE <1 /hpf (0-5); URINE COLOR YELLOW (YELLW/STRAW)
[2017-08-05 03:05] LABS: APTT (PATIENT) 44.3 SEC (24.3-30.1)
[2017-08-05] MEDS: MORPHINE SULFATE 2 MG/ML INJ IV PUSH PRN (03:48)
[2017-08-05] MEDS: SODIUM CHLOR 0.9% 1000 ML INJ 1,000 ML IV SCH ×3 (06:00→19:20)
[2017-08-05] MEDS ORDERED: SOD PHOSPHATE/SOD BIPHOSPHATE (ADULT) ENEMA 133ML RECTAL PRN (07:45)
[2017-08-05 07:53] LABS: MEAN CELL VOLUME 88.9 FL (80.0-100.0); MEAN CORPUSCULAR HEMOGLOBIN 30.4 PG (27.0-34.0); MEAN CORPUSCULAR HGB CONC 34.2 % (32.0-36.0); PLATELET COUNT 87 TH/MM3 (150-450); RED BLOOD COUNT 3.71 MIL/MM3 (4.50-5.90); WHITE BLOOD COUNT 7.3 TH/MM3 (4.0-11.0)
[2017-08-05 07:59] LABS: APTT (PATIENT) 43.4 SEC (24.3-30.1)
--- NOTE | 2017-08-05 08:04 | HHI.FPPN ---
Subjective Remarks Patient states that he feels better in terms of mental status, tremors, and fever. However, he continues to have severe back pain and is having trouble voiding due to severe constipation. He states that he feels like he has stools that are hard as rock and requests fleets enema which he says has worked well for him in the past. (Eko,Imelda Mcfadden MD R2) Objective Vitals Vital Signs Date Time Temp Pulse Resp B/P (MAP) Pulse Ox O2 Delivery O2 Flow Rate FiO2 08/05/17 06:00 98 08/05/17 05:00 87 08/05/17 04:00 98.9 88 18 128/91 (103) 94 08/05/17 04:00 88 08/05/17 03:00 91 08/05/17 02:00 90 08/05/17 01:00 89 08/05/17 00:00 96 08/05/17 00:00 98.7 96 18 118/74 (89) 93 08/04/17 23:00 97 08/04/17 22:00 90 08/04/17 21:35 94 21 08/04/17 21:00 98 08/04/17 20:00 93 08/04/17 20:00 99.0 96 18 124/83 (97) 95 08/04/17 18:15 111 08/04/17 17:06 98 08/04/17 16:03 101 08/04/17 15:01 88 08/04/17 15:00 98.9 102 18 110/68 (82) 96 08/04/17 14:05 88 08/04/17 13:06 93 08/04/17 12:45 99.2 93 18 122/79 (93) 95 08/04/17 11:00 84 08/04/17 10:01 92 08/04/17 09:00 87 I/O 08/04/17 08/04/17 08/04/17 08/05/17 08/05/17 08/05/17 07:00 15:00 23:00 07:00 15:00 23:00 Intake Total 1418 ml 215 ml 1040 ml 240 ml Output Total 200 ml 450 ml 900 ml Balance 1218 ml -235 ml 1040 ml -660 ml Intake Oral 400 ml 120 ml 240 ml IV Total 1018 ml 95 ml 1040 ml Output Urine Total 200 ml 450 ml 900 ml Bladder Scan Volume Amount 500 ml 500 ml # Bowel Movements 0 0 0 (Eko,Imelda U R2) Result Diagram: 08/04/17 1245 08/04/17 0122 Imaging Last 72 hours Impressions Sacrum/Coccyx MRI 08/04/17 0832 Signed Impressions: Service Date/Time: Friday, August 04, 2017 11:18 - CONCLUSION: 1. Prostatomegaly with BPH. 2. Abnormal appearance of the right peripheral zone. Correlation with PSA is suggested. 3. Normal sacrum and coccyx. 4. No evidence of focal bony lesions or local regional lymphadenopathy. Haroon Strauss MD Lumbar Spine MRI 08/04/17 0832 Signed Impressions: Service Date/Time: Friday, August 04, 2017 11:18 - CONCLUSION: 1. Moderate to severe central spinal stenosis at L1-2, L2-3 and L4-5 as described. 2. Postsurgical changes at L3 and L4 following laminectomy and fusion. 3. Mild inflammatory arthropathy of the right L1-2 facet joint. 4. Mild to moderate degenerative disc disease. 5. No evidence of acute disc herniation or abnormal bony enhancement. Haroon Strauss MD Chest X-Ray 08/04/17 0000 Signed Impressions: Service Date/Time: Friday, August 04, 2017 15:42 - CONCLUSION: No acute cardiopulmonary process. Jorje Gallegos MD Abdomen/Pelvis CT 08/03/17 0955 Signed Impressions: Service Date/Time: Thursday, August 03, 2017 11:14 - CONCLUSION: 1. No drainable fluid collection/abscess status post appendectomy. 2. Marginally prominent jejunal loops consistent with mild adynamic ileus. 3. Ancillary findings, as above. Javi Renee MD Abdomen Ultrasound 08/03/17 0000 Signed Impressions: Service Date/Time: Thursday, August 03, 2017 13:35 - CONCLUSION: Unremarkable. Etiology for abdominal pain is not evident. Keyur Miguel MD FACR Objective Remarks GENERAL: Patient lying flat in bed, no acute distress. SKIN: Has abrasions on bilateral knees HEENT: Normocephalic, no nasal discharge NECK: Supple, no meningeal signs, no lymphadenopathy CARDIOVASCULAR: Regular rate and irregular rhythm without murmurs, gallops, or rubs. Pulses peripherally are normal. Cap refill is normal. RESPIRATORY: Clear to auscultation. Breath sounds equal bilaterally. No wheezes , rales, or rhonchi. GASTROINTESTINAL: Tender to palpation in the groin area on the right and middle lower abdomen MSK: Pain with palpation of the lumbar vertebral bodies with some bilateral paraspinal tenderness as well Neuro: Awake, alert, PERRLA, EOMI, CN intact, normal strength and sensation distally (Eko,Imelda Mcfadden MD R2) A/P Assessment and Plan 76-year-old male presented on 08/03/17 with right lower quadrant/right groin pain, met sepsis criteria with unknown source, blood cultures positive for gram positive cocci, being treated with Ancef IV. With acute urinary retention overnight. Also with new onset atrial fibrillation with RVR. Infectious disease , neurosurgery, urology, and cardiology are on board. Discussed with Dr. Rojo Discharge Planning Pending resolution of fevers, leukocytosis, good heart rate control, anticoagulated appropriately, resolution of acute urinary retention, and recommendations from neurosurgery, urology, cardiology, and infectious disease. (EkoImelda MD R2) Attending Attestation Patient seen and examined with the resident team. Case reviewed and discussed Agree with plan of care as discussed with me and documented in the resident note. Feeling better, chills resolving. Still no BM. Enema. (Ana Rojo MD) Problem List: (1) Sepsis ICD Codes: A41.9 - Sepsis, unspecified organism Status: Acute Plan: Initially meeting sepsis criteria with leukocytosis and fevers, positive blood culture with gram positive cocci. Lactate normal. Elevated pulse, found to be in atrial fibrillation with RVR. Maintaining normal blood pressures, otherwise hemodynamically stable. Now temperatures normal. UA that is bloody but no nitrites or leukocyte esterase. MRI of lumbar and sacral spine not showing any epidural abscess. CT abdomen showing no source of infection. Has abrasions on knees that could be source of possible entrance. No history of IV drug use. - Urinalysis not indicative of infection - Chest x-ray negative - May need chest CT scan if no source found - Infectious disease on board - Currently on Ancef 2 g IV started on 08/04/2017 - Second set of blood cultures collected on 08/04/17 are negative 1 day - 2D ECHO shows mild tricuspid regurgitation, mild to moderate mitral valve regurgitation, and moderate left atrial dilation, no mention of vegetations. Deferred to cardiology if ORTIZ is needed to check for vegetations (2) Urinary retention ICD Codes: R33.9 - Retention of urine, unspecified Status: Acute Plan: Acute urinary retention with gross hematuria. Concern for moderate to severe lumbar stenosis, possible source of urinary retention. Also with enlarged prostate noted on MRI. No epidural abscess noted on MRI of back. Lower extremity weakness subjectively, but strength is normal on neuro exam. Normal rectal tone on examination. Enlarged prostate not appreciated on exam but is noted on imaging. Spoke with neurosurgeon on 08/04 Dr. Rubin on the phone and stat consult order was placed. - Consult urology - started on Flomax 0.4 mg PO every 12 hours - Straight catheter as needed - overnight nurse collected 700 mLs after he voided 200 mls - PSA within normal limits at 1.61 - Neurosurgery consult for possible cauda equina, appreciate recommendations. (3) Constipation ICD Codes: K59.00 - Constipation, unspecified Plan: -Patient reports having problems with chronic constipation -Currently on severe constipation regimen with additional fleets enema with mineral oil (4) Atrial fibrillation with RVR ICD Codes: I48.91 - Unspecified atrial fibrillation Plan: Patient initially presented with regular rate and rhythm but developed new onset A. fib with RVR. Received 10 mg IV diltiazem bolus and was transitioned to diltiazem drip which was discontinued after resolution of RVR but remains in A. fib. Troponins elevated but flat on trend. TSH WNL at 0.876. BNP mildly elevated. - 2D ECHO shows moderate after atrial enlargement - Cardiology consult for new onset A. fib - Per cardiology, on metoprolol XR 25 mg twice a day - Started on heparin drip (in case of procedure), likely bridge to a NOAC when stable. (5) Right lower quadrant abdominal pain ICD Codes: R10.31 - Right lower quadrant pain Status: Acute Plan: Differential diagnoses includes resolved right kidney stone, early colitis, septic right hip joint, muscle spasm with radiculopathy, lumbar stenosis with radiculopathy, spinal abscess. Urine positive for occult blood and 30 RBCs. Renal US essentially normal except for small upper pole cyst also seen on CT abdomen. No hydronephrosis, stone, or mass on either CT or US. Mild adynamic ileus on CT scan. Last bowel movement was on Wednesday 08/01 and was normal but larger than usual. MRI of lower back shows moderate to severe lumbar stenosis. -[place] for pain, Morphine for breakthrough pain. -Constipation regimen -Neurosurgery consulted for severe lumbar stenosis and neurological findings, appreciate recommendations. -Urine filter for possible stone -Urology on board for urological symptoms - Flomax as above. (6) Thrombocytopenia ICD Codes: D69.6 - Thrombocytopenia, unspecified Status: Acute Plan: Platelets 120 on admission with normal hemoglobin and hematocrit, dropped to 90's with heparin drip. - Platelets 87 today 08/05/17 - HIT pending - Monitor platelets , patient is on heparin IV - Monitor for spontaneous bleeding (7) Hyperbilirubinemia ICD Codes: E80.6 - Other disorders of bilirubin metabolism Status: Acute Plan: Total bilirubin of 2.3 with breakdown as follows: Direct bilirubin 0.5, indirect bilirubin 1.8. May be Gilbert versus acute hemolysis. Also with blood in urine. - Hepatitis profile pending - Check LDH within normal limits and haptoglobin elevated (8) Chronic Medical Problems Status: Chronic Plan: Hypertension: Holding valsartan and hydrochlorothiazide, plan to restart valsartan at lower dose tomorrow (9) FEN/DVT PPX/GI PPX/Nursing Orders Plan: Fluids: NS @ 150 mls/hr IV Electrolytes: Will monitor and replace as needed Nutrition: Heart healthy diet DVT Prophylaxis: Lovenox 40mg daily GI Prophylaxis: Protonix 40mg PO daily Constipation prophylaxis: Pericolace 1 tab PO BID scheduled, milk of magnesia PRN, lactulose, Fleet's enema PRN Medications Tylenol 650 mg by mouth every 4 hours when necessary pain 1-10 or temperature greater than 100.4F Zofran 4 mg IV push every 6 hours when necessary nausea vomiting [place] 325-5 mg 1 tab by mouth every 6 hours when necessary pain 5-7 [place] 325-10 mg 1 tab by mouth every 6 hours when necessary pain 8-10 Morphine 2 mg IV push every 3 hours when necessary breakthrough pain -Vitals Q4h -Monitor I's and O's -electronic device monitor with telemetry with continuous vital signs -Activity OOB with assistance -PT to assist with ambulation and strengthening exercises -Case management consult to assist with discharge disposition (Eko,Imelda U MD R2) Problem Qualifiers (1) Sepsis: Qualified Codes: A41.9 - Sepsis, unspecified organism Imelda Zeng MD R2 Aug 05, 2017 08:03 Ana Rojo MD Aug 06, 2017 08:55
[2017-08-05 08:06] LABS: REVIEW FLAG FINAL
[2017-08-05 08:15] LABS: BICARBONATE 25.2 MEQ/L (21.0-32.0); POTASSIUM 3.5 MEQ/L (3.5-5.1)
[2017-08-05] MEDS ORDERED: MINERAL OIL ENEMA 118 ML BTL RECTAL PRN (08:15)
[2017-08-05] MEDS: ceFAZolin 2 GM PREMIX 50 ML IV SCH ×2 (08:29→18:15)
[2017-08-05] MEDS ORDERED: POLYETHYLENE GLYCOL 17 GM PKG PO ONE (08:30)
[2017-08-05] MEDS: TAMSULOSIN HCL 0.4 MG CAP PO SCH ×2 (08:30→20:19)
[2017-08-05] MEDS: LACTULOSE SYRUP 20 GM/30 ML CUP PO PRN (08:30)
[2017-08-05] MEDS: PANTOPRAZOLE SOD 40 MG DELAYED RELEASE TAB PO SCH (08:30)
[2017-08-05] MEDS: CHOLECALCIFEROL (VIT D3) 1000 UNIT TAB PO SCH (08:30)
[2017-08-05] MEDS: METOPROLOL SUCCINATE 25 MG EXTENDED RELEASE TAB PO SCH ×2 (08:30→20:19)
[2017-08-05] MEDS: VITAMIN E 400 UNIT CAP PO SCH (08:31)
[2017-08-05] MEDS: ASPIRIN 81 MG CHEW TAB CHEW SCH (08:31)
[2017-08-05] MEDS: DOCUSATE SODIUM 50 MG/SENNA 8.6 MG TAB PO SCH ×2 (08:31→20:19)
[2017-08-05] MEDS: SODIUM CHLORIDE 0.9% FLUSH 10 ML FLUSH IV FLUSH SCH ×2 (08:31→20:20)
--- NOTE | 2017-08-05 10:16 | MB ---
cc: IVÁN DAMON MD DATE OF CONSULTATION: 08/05/2017 REASON FOR CONSULTATION 1. Urinary retention. 2. History of BPH. 3. History of elevated PSA. HISTORY OF PRESENT ILLNESS The patient is a 76-year-old male with a history of elevated PSA, BPH, who presented to [facility] on 08/03/2017 with a two day history of right lower quadrant pain, 07/03 in nature and described as burning like "fire". The patient stated he was remodeling an apartment on Sunday and did well all day, but however, went to bed that night and around 4:00 a.m. woke up with severe right back pain that radiated to his right lower quadrant suprapubic area. He took two Aleve but it did not really resolve the pain. It began worsening which then brought him back to the ER. In the ER during workup they thought maybe he had possibly passed a kidney stone as his brother has a history of kidney stones in the past. He had a CT abdomen and pelvis with and without contrast done which did not show any kidney stones or hydronephrosis, but did have slightly distended bladder. He was subsequently admitted for further evaluation. During his hospital stay he started to have difficulty urinating. He also had a strong urge to urinate but only dribbles in small amounts. He has had multiple bladder scans done which showed greater than 500. Earlier this morning he was then straight cathed for over 700 ccs. He states that prior to this hospital admission he denies any issues with urinating. He was only getting up one time at night but did have a slightly weakened stream. He denies history of dysuria or hematuria or incontinence. He does see a urologist up in [place] once a year for a history of elevated PSA. Denies any surgery on his prostate or surgery on his bladder in the past. He states he thinks his difficulty urinating this time around is related to his constipation as he is having trouble moving his bowels. He currently denies fevers, chills, nausea, vomiting or flank pain at this time. His right lower quadrant pain has steadily improved since admission. PAST MEDICAL HISTORY 1. BPH. 2. Coronary artery disease. 3. Hypertension. 4. Hyperlipidemia. PAST SURGICAL HISTORY 1. Five-vessel CABG in 2010. 2. Back surgery. 3. Cholecystectomy. 4. Appendectomy. 5. Circumcision. MEDICATIONS Home medications include: 1. Lipitor. 2. Aspirin. 3. Hydrochlorothiazide. 4. Diovan. 5. Metoprolol. ALLERGIES NO KNOWN DRUG ALLERGIES. FAMILY HISTORY Denies prostate cancer in the family. His brother has history of kidney stones. SOCIAL HISTORY Lives in [place], 1/2 year in [place] during the geller. He smoked for 10 years from age of 15 to 25. He has 1-2 drinks a day, 3-4 drinks a week. Denies any illicit drug use. He is . REVIEW OF SYSTEMS See HPI, otherwise all systems reviewed, otherwise negative. PHYSICAL EXAMINATION VITAL SIGNS: Temperature 98.9, pulse 98, respiratory rate 18, BP 128/91, sating 99% on room air. GENERAL: He is alert and oriented x 3, in no apparent distress, pleasant, cooperative gentleman, appears stated age. HEAD: Head is normocephalic, atraumatic. EYES: No scleral icterus. Extraocular muscles intact. NECK: Supple. Trachea is midline. No JVD. SKIN: No ulcers or rashes. MOUTH: Mucous membranes pink and moist. LUNGS: Clear to auscultation bilaterally. No wheezes, rales or rhonchi. HEART: Regular rhythm. The murmurs, gallops or rubs. ABDOMEN: Soft, nontender, nondistended. Positive bowel sounds. GENITOURINARY: His penis is circumcised. Testes are descended bilaterally. Normal size and consistency without mass. RECTAL EXAM: Not indicated at this time. EXTREMITIES: Nontender. No clubbing, cyanosis, edema. PSYCHE: Normal affect. NEUROLOGIC: Cranial nerves II-XII intact. Strength is 5/5 in all four extremities. LABORATORY DATA White count 7.3, hemoglobin 11.3, hematocrit 33.0, platelet count 87. Sodium 138, potassium 3.5, chloride 106, bicarb 25.2, BUN 17, creatinine 0.75, glucose 99. Urine showed just moderate blood. IMAGING STUDIES CT abdomen and pelvis with and without contrast, images reviewed and agree with radiologist's report. The patient has no evidence of stones or hydronephrosis, does have a left peripelvic cyst, moderately distended bladder. ASSESSMENT The patient is a 76-year-old male with history of BPH, elevated PSA, who presented with right lower abdominal pain likely secondary to back issues, presents with acute onset of urinary retention. PLAN 1. Start the patient on Flomax 0.4 mg p.o. b.i.d. Continue intermittent catheterization every 6 hours. 2. Recommend treating his constipation. He can then follow up as an outpatient. Iván Damon MD EMMartine/RITA /8:31 AM /9:45 AM
[2017-08-05] MEDS ORDERED: VANCOMYCIN 1,500 MG/NS 500 ML IV SCH ×2 (12:00)
[2017-08-05 13:10] LABS: HEPARIN AB OD 0.078 O.D. (0.000-0.300); HEPARIN INDUCED PLATELET AB NEGATIVE (NEGATIVE)
--- NOTE | 2017-08-05 13:29 | EKG ---
Date Performed: 08/04/2017 Time Performed: 08:29:14 PTAGE: 76 years EKG: Atrial fibrillation. Inferior infarct - age undetermined Lateral ST-T changes may be due to myocardial ischemia One ventricular ectopic beat present Since previous tracing, no significant rendon ge noted Abnormal ECG PREVIOUS TRACING : 08/04/2017 01.47 DOCTOR: Franck Clarke Interpretating Date/Time 08/05/2017 13:28:13
--- NOTE | 2017-08-05 17:44 | HHI.PR ---
Addendum to Inpatient Note Addendum Reason: Additional Documentation Additional Information Patient was headed to WBC scan. Was able to walk. Reviewed with RN: no new symptoms. No fevers WBC better A/P Sepsis MSSA bacteremia based on verigene testing. Probable discitis of spine, has hardware in spine. Recs: Continue Ancef IV DC Aviva Rausch IV, MD Aug 05, 2017 17:44
[2017-08-05] MEDS ORDERED: MINERAL OIL ENEMA 118 ML BTL RECTAL ONE (19:00)
--- NOTE | 2017-08-05 19:29 | PD.CONS ---
HPI Service Neurosurgery Consult Requested By Reason for Consult Low back pain, fever. Status post lumbar fusion. Primary Care Physician No Primary Care Physician History of Present Illness I was asked to see this 76-year-old gentleman admitted with abdominal pain, back pain, fever, urinary retention and constipation. He has been diagnosed with MSSA sepsis. Part of his workup included lumbar MRI which showed previous lumbar laminectomy and fusion L3 4 with left-sided pedicle screw instrumentation. The study also noted severe spinal stenosis above and below the fusion at the L2-3 and L4 5 levels with moderate stenosis at L1-2. Given the patient's history there is some question as to whether or not the instrumentation is infected however there is no clear-cut signs of infection on the MRI. Disc spaces are well maintained without evidence of inflammation. There is some signal enhancement around the pedicle screws however this may be due to chronic bony changes as the screws have been present since 2007. ESR has not been performed as of yet. Patient notes improvement in his back pain since admission. His main complaint at this point is constipation and he has not been able to move his bowels despite multiple enemas and oral stool softeners. Review of Systems Except as stated in HPI: all other systems reviewed are Neg General / Constitutional: Positive: Fever, No: Chills (102 yesterday, none today) HENT: No: Headaches, Lightheadedness Cardiovascular: No: Chest Pain or Discomfort, Palpitations Respiratory: No: Cough, Shortness of Breath Gastrointestinal: Positive: Abdominal Pain (right lower quadrant), No: Nausea, Vomiting, Diarrhea Genitourinary: Positive: Other (darker colored urine than normal), No: Dysuria Musculoskeletal: Positive: Pain (pain yesterday in his right), No: Weakness ( flank) Skin: No Rash, No Lesions Neurologic: No: Weakness, Dizziness Past Family Social History Allergies: Coded Allergies: No Known Allergies (Unverified , 08/03/17) Past Medical History Cardiovascular Problems: Yes High Cholesterol: Yes Chest Pain: Yes Cerebrovascular Accident: Yes Coronary Artery Disease: Yes Hypertension: Yes Reported Medications [place]-3 Fish Oil/Vitamin (Fish Oil-Cholecalciferol) 1,000-1,000 Mg Cap 1 Cap PO DAILY Vitamin E 200 Unit Cap 500 Units PO DAILY Vitamin D3 (Cholecalciferol) 1,000 Unit Cap 1,000 Units PO DAILY Vitamin C (Ascorbic Acid) 250 Mg Tab 1,000 Mg PO Aspirin 81 Mg Chew 162 Mg CHEW DAILY Lipitor (Atorvastatin Calcium) 20 Mg Tab 20 Mg PO HS Hydrochlorothiazide 12.5 Mg Tab 12.5 Mg PO DAILY Diovan (Valsartan) 40 Mg Tab 40 Mg PO DAILY Metoprolol Succinate ER 24 HR (Metoprolol Succinate) 25 Mg Tab 12.5 Mg PO HS Social History Alcohol Use: Yes (occassional) Tobacco Use: No Substance Use: No Physical Exam Vital Signs Vital Signs Date Time Temp Pulse Resp B/P (MAP) Pulse Ox O2 Delivery O2 Flow Rate FiO2 08/05/17 17:00 111 08/05/17 13:00 93 08/05/17 12:00 99.8 12 22 124/81 (95) 96 08/05/17 09:00 95 08/05/17 08:00 98.7 98 18 125/85 (98) 95 08/05/17 06:00 98 08/05/17 05:00 87 08/05/17 04:00 98.9 88 18 128/91 (103) 94 08/05/17 04:00 88 08/05/17 03:00 91 08/05/17 02:00 90 08/05/17 01:00 89 08/05/17 00:00 96 08/05/17 00:00 98.7 96 18 118/74 (89) 93 08/04/17 23:00 97 08/04/17 22:00 90 08/04/17 21:35 94 21 08/04/17 21:00 98 08/04/17 20:00 93 08/04/17 20:00 99.0 96 18 124/83 (97) 95 Physical Exam Gen.: Well-developed well-nourished elderly gentleman who is awake and alert. No acute distress. HEENT: Head is atraumatic and normocephalic. Pupils are equal and reactive to light. Extraocular movements are intact. Neck: Supple for range of motion no posterior tenderness. Spine: No significant paraspinal spasm or midline tenderness on palpation Neurological: Mental status is normal. Speech is intact to contact Retention. Cranial nerves II-XII are intact. Motor function is 5 over 5 the upper and lower extremities. Patient is ambulatory without assistance. Sensory is intact to primary modalities and reflexes are hypoactive but symmetric. Laboratory Laboratory Tests Test 08/04/17 23:33 08/05/17 02:22 08/05/17 07:02 Urine Color YELLOW Urine Turbidity CLEAR Urine pH 6.0 Urine Specific [place] 1.044 Urine Protein 30 Urine Glucose (UA) NEG Urine Ketones TRACE Urine Occult Blood MOD Urine Nitrite NEG Urine Bilirubin NEG Urine Urobilinogen LESS THAN 2.0 Urine Leukocyte Esterase NEG Urine RBC Urine WBC 2 Urine Squamous Epithelial Cells <1 Microscopic Urinalysis Comment CULT NOT INDICATED Urine Collection Time INN Activated Partial Thromboplast Time 44.3 43.4 White Blood Count 7.3 Red Blood Count 3.71 Hemoglobin 11.3 Hematocrit 33.0 Mean Corpuscular Volume 88.9 Mean Corpuscular Hemoglobin 30.4 Mean Corpuscular Hemoglobin Concent 34.2 Red Cell Distribution Width 14.0 Platelet Count 87 Mean Platelet Volume 8.8 Blood Urea Nitrogen 17 Creatinine 0.75 Random Glucose 99 Calcium Level 7.5 Sodium Level 138 Potassium Level 3.5 Chloride Level 106 Carbon Dioxide Level 25.2 Anion Gap 7 Estimat Glomerular Filtration Rate 101 Date/Time Source Procedure Growth Status 08/05/17 10:55 Blood Peripheral Aerobic Blood Culture Pending Received 08/05/17 10:55 Blood Peripheral Anaerobic Blood Culture Pending Received Result Diagram: 08/05/1770108/05/17701 Imaging I reviewed the MRI of the lumbar spine. Results as stated in history of present illness. Assessment and Plan Assessment and Plan Assessment: Low back pain secondary to spinal stenosis and spondylosis. Question as to possible bacterial seeding of spinal instrumentation. Patient underwent tagged scan today however results are not available at this time. Urinary retention which in my opinion is not secondary to the stenosis based on MRI findings. Constipation and possible impaction. Recommendations: At this point the main concern from a neurosurgical standpoint is possible bacterial seeding of the spinal inmstrumentation. Will order ESR and await white blood cell scan results. If there is any indication of spinal infection the instrumentation will need to be removed and at the same time the noted spinal stenosis can be addressed. If the instrumentation is not infected then there is no urgency to surgical intervention for the spinal stenosis and it can be treated following resolution of the patient's bacteremia and other symptoms. Dr. Brunner will assume neurosurgical care of the patient tomorrow. Ari Rubin MD Aug 05, 2017 19:29
[2017-08-05] MEDS ORDERED: SOD PHOSPHATE/SOD BIPHOSPHATE (ADULT) ENEMA 133ML RECTAL ONE (19:30)
[2017-08-05] MEDS: ATORVASTATIN 20 MG TAB PO SCH (20:19)
[2017-08-06] VITALS (23 sets, daily range): BP systolic 126–148; BP diastolic 76–103; PULSE 87–117; RESP 18–20; TEMP 98.1–99.5; O2SAT 93–99
[2017-08-06] MEDS: ceFAZolin 2 GM PREMIX 50 ML IV SCH ×4 (00:41→23:57)
[2017-08-06] MEDS: SODIUM CHLOR 0.9% 1000 ML INJ 1,000 ML IV SCH ×2 (00:41→08:30)
[2017-08-06 06:39] LABS: AUTOMATED NEUTROPHIL # 6.2 TH/MM3 (1.8-7.7); BASOPHIL % 0.3 % (0.0-2.0); EOSINOPHIL % 0.5 % (0.0-4.0); HEMO FLAGS DIFF FINAL; LYMPH % 12.4 % (9.0-44.0); MEAN CELL VOLUME 86.1 FL (80.0-100.0); MEAN CORPUSCULAR HEMOGLOBIN 30.5 PG (27.0-34.0); MEAN CORPUSCULAR HGB CONC 35.4 % (32.0-36.0); MONO % 9.1 % (0.0-8.0); NEUT % 77.7 % (16.0-70.0); PLATELET COUNT 108 TH/MM3 (150-450); RED BLOOD COUNT 3.48 MIL/MM3 (4.50-5.90); RED CELL DISTRIBUTION WIDTH 14.1 % (11.6-17.2); WHITE BLOOD COUNT 7.9 TH/MM3 (4.0-11.0)
[2017-08-06 07:00] LABS: BICARBONATE 24.9 MEQ/L (21.0-32.0); POTASSIUM 3.2 MEQ/L (3.5-5.1)
[2017-08-06 07:09] LABS: APTT (PATIENT) 40.1 SEC (24.3-30.1)
[2017-08-06] MEDS: HEPARIN-D5W 25,000 U/250 ML 250 ML IV PRN (07:45)
[2017-08-06] MEDS: TAMSULOSIN HCL 0.4 MG CAP PO SCH ×2 (08:27→20:09)
[2017-08-06] MEDS: DOCUSATE SODIUM 50 MG/SENNA 8.6 MG TAB PO SCH ×2 (08:28→20:08)
[2017-08-06] MEDS: VITAMIN E 400 UNIT CAP PO SCH (08:29)
[2017-08-06] MEDS: METOPROLOL SUCCINATE 25 MG EXTENDED RELEASE TAB PO SCH ×2 (08:29→20:08)
[2017-08-06] MEDS: CHOLECALCIFEROL (VIT D3) 1000 UNIT TAB PO SCH (08:29)
[2017-08-06] MEDS: ASPIRIN 81 MG CHEW TAB CHEW SCH (08:29)
[2017-08-06] MEDS: PANTOPRAZOLE SOD 40 MG DELAYED RELEASE TAB PO SCH (08:29)
[2017-08-06] MEDS: SODIUM CHLORIDE 0.9% FLUSH 10 ML FLUSH IV FLUSH SCH ×2 (08:30→20:08)
--- NOTE | 2017-08-06 11:20 | HHI.FPPN ---
Subjective Remarks Mr Bradshaw had no acute events overnight. He is feeling much better today and has ambulated the hallway without s/s of leg weakness, and is eating his first meal in the hospital. He has begun stooling again and it appears his urinary retention may have resolved following the stooling. I spoke to Mr Bradshaw's daughter Ning today ([phone]) whom he allows us to share information. She indicates he has flight plans for [facility] this weekend. I answered her questions and concerns. Denies CP, palpitations, dizziness, N/V/D, DVT pain. (Aman Gonzalez MD R1) Objective Vitals Vital Signs Date Time Temp Pulse Resp B/P (MAP) Pulse Ox O2 Delivery O2 Flow Rate FiO2 08/06/17 06:00 87 08/06/17 05:00 92 08/06/17 04:00 96 08/06/17 04:00 98.1 96 18 130/87 (101) 95 08/06/17 03:00 92 08/06/17 02:00 95 08/06/17 01:00 89 08/06/17 00:00 98 08/06/17 00:00 98.7 98 18 131/80 (97) 95 08/05/17 23:00 99 08/05/17 22:00 95 08/05/17 21:00 97 08/05/17 20:23 96 21 08/05/17 20:00 110 08/05/17 20:00 99.6 110 20 138/98 (111) 93 08/05/17 17:00 111 08/05/17 13:00 93 08/05/17 12:00 99.8 12 22 124/81 (95) 96 I/O 08/05/17 08/05/17 08/05/17 08/06/17 08/06/17 08/06/17 07:00 15:00 23:00 07:00 15:00 23:00 Intake Total 340 ml 100 ml 480 ml 1650 ml Output Total 900 ml 250 ml 700 ml Balance -560 ml -150 ml -220 ml 1650 ml Intake Oral 240 ml 480 ml IV Total 100 ml 100 ml 1650 ml Output Urine Total 900 ml 250 ml 700 ml Bladder Scan Volume Amount 500 ml 500 ml # Bowel Movements 0 1 1 (Aman Gonzalez MD R1) Result Diagram: 08/06/17 0559 08/06/17 0559 Imaging Last Impressions Tumor Localization 08/05/17 0000 Signed Impressions: Service Date/Time: Saturday, August 05, 2017 13:19 - CONCLUSION: Negative for occult inflammatory process. Keyur Miguel MD FACR Sacrum/Coccyx MRI 08/04/17 0832 Signed Impressions: Service Date/Time: Friday, August 04, 2017 11:18 - CONCLUSION: 1. Prostatomegaly with BPH. 2. Abnormal appearance of the right peripheral zone. Correlation with PSA is suggested. 3. Normal sacrum and coccyx. 4. No evidence of focal bony lesions or local regional lymphadenopathy. Haroon Strauss MD Lumbar Spine MRI 08/04/17 0832 Signed Impressions: Service Date/Time: Friday, August 04, 2017 11:18 - CONCLUSION: 1. Moderate to severe central spinal stenosis at L1-2, L2-3 and L4-5 as described. 2. Postsurgical changes at L3 and L4 following laminectomy and fusion. 3. Mild inflammatory arthropathy of the right L1-2 facet joint. 4. Mild to moderate degenerative disc disease. 5. No evidence of acute disc herniation or abnormal bony enhancement. Haroon Strauss MD Chest X-Ray 08/04/17 0000 Signed Impressions: Service Date/Time: Friday, August 04, 2017 15:42 - CONCLUSION: No acute cardiopulmonary process. Jorje Gallegos MD Abdomen/Pelvis CT 08/03/17 0955 Signed Impressions: Service Date/Time: Thursday, August 03, 2017 11:14 - CONCLUSION: 1. No drainable fluid collection/abscess status post appendectomy. 2. Marginally prominent jejunal loops consistent with mild adynamic ileus. 3. Ancillary findings, as above. Javi Renee MD Abdomen Ultrasound 08/03/17 0000 Signed Impressions: Service Date/Time: Thursday, August 03, 2017 13:35 - CONCLUSION: Unremarkable. Etiology for abdominal pain is not evident. Keyur Miguel MD FACR Objective Remarks GENERAL: WDWN elderly but spry male patient sitting in a chair eating lunch in no acute distress. SKIN: Has abrasions on bilateral knees. No rashes noted. HEENT: Normocephalic, atraumatic, no nasal discharge. No oral sores. NECK: Supple, no meningeal signs, no lymphadenopathy. Trachea midline. CARDIOVASCULAR: Regular rate and irregular rhythm without murmur, gallop, or rub. Peripheral pulses and capillary refill wnl. RESPIRATORY: Clear to auscultation in all lung rojas. Breath sounds equal bilaterally. No wheezes, rales, or rhonchi. No increased WOB. GASTROINTESTINAL: Resolving tenderness to palpation in the right groin area and middle lower abdomen. Normal BS with no guarding or rigidity. MSK: Resolving pain with palpation of the lumbar vertebral bodies with some bilateral paraspinal tenderness. Normal range of motion; can ambulate w/o pain. Neuro: Awake, alert, PERRLA, EOMI, CN intact, normal strength and sensation distally. Medications and IVs Current Medications Medications (Trade) Dose Ordered Sig/Lelia Route Start Time Stop Time Status Last Admin (NS Flush) 2 ml UNSCH PRN IV FLUSH 08/03/17 12:45 (NS Flush) 2 ml BID IV FLUSH 08/03/17 21:00 08/05/17 20:20 (Aspirin Chew) 162 mg DAILY CHEW 08/04/17 09:00 08/06/17 08:29 (Lipitor) 20 mg HS PO 08/03/17 21:00 08/05/17 20:19 (Vitamin D3) 1,000 units DAILY PO 08/04/17 09:00 08/06/17 08:29 (Microzide) 12.5 mg DAILY PO 08/04/17 09:00 Future Hold (Diovan) 40 mg DAILY PO 08/04/17 09:00 Future Hold (Vitamin E) 400 units DAILY PO 08/04/17 09:00 08/06/17 08:29 (Pill Splitter) 1 ea UNSCH PRN OTHER 08/03/17 13:00 (Tylenol) 650 mg Q6H PRN PO 08/03/17 13:15 08/03/17 14:06 (Zofran Inj) 4 mg Q6H PRN IV PUSH 08/03/17 13:15 (Protonix) 40 mg DAILY PO 08/04/17 09:00 08/06/17 08:29 (Missy-Colace) 1 tab BID PO 08/03/17 21:00 08/05/17 20:19 (Milk Of Magnesia Liq) 30 ml Q12H PRN PO 08/03/17 15:45 08/04/17 06:19 (Senokot) 17.2 mg Q12H PRN PO 08/03/17 15:45 08/05/17 08:30 (Dulcolax Supp) 10 mg DAILY PRN RECTAL 08/03/17 15:45 (Lactulose Liq) 30 ml DAILY PRN PO 08/03/17 15:45 08/05/17 08:30 (Morphine Inj) 2 mg Q3HR PRN IV PUSH 08/04/17 01:30 08/05/17 03:48 ([place] 5-325 Mg) 1 tab Q4H PRN PO 08/04/17 01:30 ([place] 10-325 Mg) 1 tab Q4H PRN PO 08/04/17 01:30 08/04/17 02:24 (Toprol Xl) 25 mg BID PO 08/04/17 21:00 08/06/17 08:29 (Flomax) 0.4 mg Q12HR PO 08/04/17 10:00 08/06/17 08:27 Heparin Sodium/ Dextrose 250 ml @ 10 mls/hr TITRATE PRN IV 08/04/17 11:30 08/06/17 07:45 Cefazolin Sodium/ Dextrose 50 ml @ 100 mls/hr Q8H IV 08/04/17 16:00 08/06/17 08:27 (Fleet Mineral Oil Enema) 118 ml DAILY PRN RECTAL 08/05/17 08:15 08/05/17 11:40 (Aman Gonzalez MD R1) Urinary Catheter: No (Aman Gonzalez MD R1) Vascular Central Line Catheter: No (Aman Gonzalez MD R1) A/P Assessment and Plan 76-year-old male presented on 08/03/17 with right lower quadrant/right groin pain, met sepsis criteria with unknown source, blood cultures positive for gram positive cocci, being treated with Ancef IV. Also with new onset atrial fibrillation with RVR and acute urinary retention. Infectious disease, neurosurgery, urology, and cardiology are on board. Discussed with Dr. Rojo Discharge Planning Pending resolution of fevers, leukocytosis, good heart rate control, anticoagulated appropriately, resolution of acute urinary retention, and recommendations from neurosurgery, urology, cardiology, and infectious disease. (Aman Gonzalez MD R1) Attending Attestation Patient seen and examined. Case reviewed and discussed Agree with plan of care as discussed with me and documented in the resident note. (Ana Rojo MD) Problem List: (1) Sepsis ICD Codes: A41.9 - Sepsis, unspecified organism Status: Acute Plan: Initially meeting sepsis criteria with leukocytosis and fevers, positive blood culture with gram positive cocci. Lactate normal. Elevated pulse, found to be in atrial fibrillation with RVR. Maintaining normal blood pressures, otherwise hemodynamically stable. Now temperatures normal. UA that is bloody but no nitrites or leukocyte esterase. MRI of lumbar and sacral spine not showing any epidural abscess. CT abdomen showing no source of infection. Has abrasions on knees that could be source of possible entrance. No history of IV drug use. Of note, pt has Hx of lumbar fusion surgery 10 years ago with metal hardware in his back, and a corticosteroid injection in his lumbar spine approx 1 month ago. - UA and CXR neg - Currently on Ancef 2 g IV started on 08/04/2017 - Blood cx: 08/03 positive MSSA; 08/04 positive gram pos cocci; 08/05 cx pending - Continue to trend Blood cx until bacteremia cleared - ID consulted, Dr Silver following - 2D ECHO with mild tricuspid regurgitation, mild to moderate mitral valve regurgitation, and moderate left atrial dilation, no mention of vegetations - Dr Arrieta, Cardiology, to perform ORTIZ on 08/07 at request of ID to r/o endocarditis as source (2) Urinary retention ICD Codes: R33.9 - Retention of urine, unspecified Status: Acute Plan: Acute urinary retention with gross hematuria. Concern for moderate to severe lumbar stenosis, possible source of urinary retention. Also with enlarged prostate noted on MRI. No epidural abscess noted on MRI of back. Lower extremity weakness subjectively, but strength is normal on neuro exam. Normal rectal tone on examination. Enlarged prostate not appreciated on exam but is noted on imaging. Spoke with neurosurgeon on 08/04 Dr. Rubin on the phone and stat consult order was placed. - Consult urology - started on Flomax 0.4 mg PO every 12 hours - Straight catheter as needed - no requirement for cath overnight - PSA within normal limits at 1.61 - Urinary retention appears to have resolved overnight following a 1-2 large bowel movements, the first the pt has had in 4-5 days - Neurosurgery consulted amd following (3) Constipation ICD Codes: K59.00 - Constipation, unspecified Status: Chronic Plan: -Patient reports having problems with chronic constipation -Currently on severe constipation regimen with additional fleets enema with mineral oil - Pt has had 2 large bowel movements in the past 24 hours and is feeling more comfortable now (4) Atrial fibrillation with RVR ICD Codes: I48.91 - Unspecified atrial fibrillation Plan: Patient initially presented with regular rate and rhythm but developed new onset A. fib with RVR. Received 10 mg IV diltiazem bolus and was transitioned to diltiazem drip which was discontinued after resolution of RVR but remains in A. fib. Troponins elevated but flat on trend. TSH WNL at 0.876. BNP mildly elevated. - 2D ECHO shows moderate after atrial enlargement - Cardiology consult for new onset A. fib - Per cardiology, on metoprolol XR 25 mg twice a day - Started on heparin drip (in case of procedure), likely bridge to a NOAC when stable. - Dr Arrieta will perform ORTIZ on 08/07 at request of ID to r/o endocarditis (5) Right lower quadrant abdominal pain ICD Codes: R10.31 - Right lower quadrant pain Status: Acute Plan: Resolving. Pt with less pain than on presentation. Differential diagnoses includes resolved right kidney stone, early colitis, septic right hip joint, muscle spasm with radiculopathy, lumbar stenosis with radiculopathy, spinal abscess. Urine positive for occult blood and 30 RBCs. Renal US essentially normal except for small upper pole cyst also seen on CT abdomen. No hydronephrosis, stone, or mass on either CT or US. Mild adynamic ileus on CT scan. Last bowel movement was on Wednesday 08/01 and was normal but larger than usual. MRI of lower back shows moderate to severe lumbar stenosis. -[place] for pain, Morphine for breakthrough pain. -Constipation regimen -Neurosurgery consulted for moderate to severe lumbar stenosis and neurological findings, appreciate recommendations. -Urine filter for possible stone -Urology on board for urological symptoms - Flomax as above. (6) Thrombocytopenia ICD Codes: D69.6 - Thrombocytopenia, unspecified Status: Acute Plan: Platelets 120 on admission with normal H/H, dropped to 87 with heparin drip, now at 108 on 08/06. - HIIT gera negative for antibodies - Monitor platelets w/daily CBC, patient is on heparin IV - Monitor for spontaneous bleeding (7) Hyperbilirubinemia ICD Codes: E80.6 - Other disorders of bilirubin metabolism Status: Acute Plan: Total bilirubin of 2.3 with breakdown as follows: Direct bilirubin 0.5, indirect bilirubin 1.8. May be Gilbert versus acute hemolysis. Also with blood in urine. - Hepatitis profile pending - Check LDH within normal limits and haptoglobin elevated (8) Chronic Medical Problems Status: Chronic Plan: Hypertension: Holding valsartan and hydrochlorothiazide, BP with systolic in 130s overnight and 140s today -Consider restart of home dose Valsartan 40mg (9) FEN/DVT PPX/GI PPX/Nursing Orders Plan: Fluids: NS @ 150 mls/hr IV Electrolytes: Will monitor and replace as needed Nutrition: Heart healthy diet DVT Prophylaxis: Lovenox 40mg daily GI Prophylaxis: Protonix 40mg PO daily Constipation prophylaxis: Pericolace 1 tab PO BID scheduled, milk of magnesia PRN, lactulose, Fleet's enema PRN Medications Tylenol 650 mg by mouth every 4 hours when necessary pain 1-10 or temperature greater than 100.4F Zofran 4 mg IV push every 6 hours when necessary nausea vomiting [place] 325-5 mg 1 tab by mouth every 6 hours when necessary pain 5-7 [place] 325-10 mg 1 tab by mouth every 6 hours when necessary pain 8-10 Morphine 2 mg IV push every 3 hours when necessary breakthrough pain -Vitals Q4h -Monitor I's and O's -property assessment monitor with telemetry with continuous vital signs -Activity OOB with assistance -PT to assist with ambulation and strengthening exercises -Case management consult to assist with discharge disposition (Aman Gonzalez MD R1) Problem Qualifiers (1) Sepsis: Qualified Codes: A41.01 - Sepsis due to methicillin susceptible Staphylococcus aureus Aman Gonzalez MD R1 Aug 06, 2017 11:20 Ana Rojo MD Aug 13, 2017 16:25
--- NOTE | 2017-08-06 11:40 | RADRPT ---
EXAM DATE/TIME: 08/05/2017 13:19 [facility] COMPARISON: No previous studies available for comparison. INDICATIONS : Occult infection. Fever and total body pain for one day. DOSE: 20.1 mCi Tc99m Ceretec labeled white blood cells IV PLANAR IMAGIN min, 3 hrs, 20 hrs MEDICAL HISTORY : Cardiovascular disease. Hypertension. SURGICAL HISTORY : CABG Cholecystectomy. Appendectomy. L spine kain. ENCOUNTER: Initial ACUITY: 1 day PAIN SCALE: 10/10 LOCATION: upper quadrant TECHNIQUE: Following the in vitro labeling of autologous white cells and reinjection, whole body scan was perfor med at specified times. FINDINGS: There is no abnormal biodistribution of radiotracer. CONCLUSION: Negative for occult inflammatory process. Keyur Miguel MD FACR on August 06, 2017 at 11:38 Board Certified Radiologist. This report was verified electronically.
[2017-08-06] MEDS ORDERED: PHARMACY ORDERED LAB ONE (11:45)
--- NOTE | 2017-08-06 14:09 | HHI.IDPN ---
Subjective Subjective Remarks is a 76 y/o CM with PMHx of Chronic back pain s/p lumbar spine surgery with hardware in place. Patient also reports seeing a pain medicine physician with injection into ? epidural space in February 2017. 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 Patient past medical history is also significant for h/o CAD s/p CABG. With this background he presents to the [facility] ED with chief complaint of right lower quadrant pain of 2 days duration which starts in lower back and radiates forward. He describes the pain as 10/10 pain that mata like fire. Patient states that he was remodeling in an apartment on Sunday and did well all day. He went to bed that night and woke up around 4 AM on morning with severe right back pain that radiated to his right lower quadrant/suprapubic area. Patient states that the pain was so severe that he could not move any part of his body without feeling pain. He was finally able to get himself out of bed and took 2 Aleve pills but could not do much the entire day and could barely walk. The pain initially subsided and then started to get worse again such that his friend convinced him to come to the ER. He has not been ill prior to this incident and denies any sick contacts. Patient gives history of high grade fevers 101 F prior to admission with chills. On admission, patient met sepsis criteria with WBC 17.2, HR 99 and sepsis workup initiated. Blood cultures drawn on admission positive for MSSA ID consulted for evaluation and Mment of MSSA bacteremia. On admission had CT Abd pelvis which did not help identify any acute process. Due to persistent back pain and acute retention of urine overnight patient underwent an MRI L spine and sacrum which showed spinal stenosis but no epidural abscess or discitis. Neurosurgery eval is pending. Overnight events reviewed. BCX 2nd set 08/03, 08/04 positive. MRI spine negative WBC scan negative. 2D ECHO negative. Patient does give history of cortisone injection in spine 1 month back. He also endorses repeated infections mostly around his knees. He reports that due to his neuropathy patient has had to bend down on knees to lift objects off the floor. 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 He endorses scraping his right toney of tibia but no active cellulitis or abscess at any point. Antibiotics Ancef IV Lines Line sites with no e.o infection Past Medical History Lumbar spine surgery with hardware in place. Chronic back pain with h/o cortisone injections. Allergies: Coded Allergies: No Known Allergies (Unverified , 08/03/17) Objective . Vital Signs Date Time Temp Pulse Resp B/P (MAP) Pulse Ox O2 Delivery O2 Flow Rate FiO2 08/06/17 12:15 99.4 106 18 148/103 (118) 93 08/06/17 08:30 99.5 103 18 147/91 (109) 93 08/06/17 06:00 87 08/06/17 05:00 92 08/06/17 04:00 96 08/06/17 04:00 98.1 96 18 130/87 (101) 95 08/06/17 03:00 92 08/06/17 02:00 95 08/06/17 01:00 89 08/06/17 00:00 98 08/06/17 00:00 98.7 98 18 131/80 (97) 95 08/05/17 23:00 99 08/05/17 22:00 95 08/05/17 21:00 97 08/05/17 20:23 96 21 08/05/17 20:00 110 08/05/17 20:00 99.6 110 20 138/98 (111) 93 08/05/17 17:00 111 08/06/17 08/06/17 08/07/17 15:00 23:00 07:00 Intake Total 1975 ml Balance 1975 ml IV Total 1975 ml . Laboratory Tests Test 08/05/17 07:02 08/05/17 21:24 08/06/17 05:59 White Blood Count 7.3 TH/MM3 7.9 TH/MM3 Red Blood Count 3.71 MIL/MM3 3.48 MIL/MM3 Hemoglobin 11.3 GM/DL 10.6 GM/DL Hematocrit 33.0 % 30.0 % Mean Corpuscular Volume 88.9 FL 86.1 FL Mean Corpuscular Hemoglobin 30.4 PG 30.5 PG Mean Corpuscular Hemoglobin Concent 34.2 % 35.4 % Red Cell Distribution Width 14.0 % 14.1 % Platelet Count 87 TH/MM3 108 TH/MM3 Mean Platelet Volume 8.8 FL 8.5 FL Erythrocyte Sedimentation Rate 45 mm/hr Neutrophils (%) (Auto) 77.7 % Lymphocytes (%) (Auto) 12.4 % Monocytes (%) (Auto) 9.1 % Eosinophils (%) (Auto) 0.5 % Basophils (%) (Auto) 0.3 % Neutrophils # (Auto) 6.2 TH/MM3 Lymphocytes # (Auto) 1.0 TH/MM3 Monocytes # (Auto) 0.7 TH/MM3 Eosinophils # (Auto) 0.0 TH/MM3 Basophils # (Auto) 0.0 TH/MM3 CBC Comment DIFF FINAL Differential Comment Laboratory Tests Test 08/04/17 19:01 08/05/17 07:02 08/06/17 05:59 C-Reactive Protein 13.00 MG/DL Prostate Specific Antigen 1.61 NG/ML Blood Urea Nitrogen 17 MG/DL 12 MG/DL Creatinine 0.75 MG/DL 0.70 MG/DL Random Glucose 99 MG/DL 111 MG/DL Calcium Level 7.5 MG/DL 7.5 MG/DL Sodium Level 138 MEQ/L 137 MEQ/L Potassium Level 3.5 MEQ/L 3.2 MEQ/L Chloride Level 106 MEQ/L 105 MEQ/L Carbon Dioxide Level 25.2 MEQ/L 24.9 MEQ/L Anion Gap 7 MEQ/L 7 MEQ/L Estimat Glomerular Filtration Rate 101 ML/MIN 109 ML/MIN Microbiology Date/Time Source Procedure Growth Status 08/05/17 10:55 Blood Peripheral Aerobic Blood Culture - Preliminary NO GROWTH IN 1 DAY Resulted 08/05/17 10:55 Blood Peripheral Anaerobic Blood Culture - Preliminary NO GROWTH IN 1 DAY Resulted 08/05/17 10:50 Blood Peripheral Aerobic Blood Culture - Preliminary NO GROWTH IN 1 DAY Resulted 08/05/17 10:50 Blood Peripheral Anaerobic Blood Culture - Preliminary NO GROWTH IN 1 DAY Resulted 08/04/17 13:58 Blood Peripheral Aerobic Blood Culture - Preliminary Gram Positive Cocci Resulted 08/04/17 13:58 Blood Peripheral Anaerobic Blood Culture - Preliminary NO GROWTH IN 2 DAYS Resulted 08/04/17 13:50 Blood Peripheral Aerobic Blood Culture - Preliminary Gram Positive Cocci Resulted 08/04/17 13:50 Blood Peripheral Anaerobic Blood Culture - Preliminary NO GROWTH IN 2 DAYS Resulted Imaging Last Impressions Tumor Localization 08/05/17 0000 Signed Impressions: Service Date/Time: Saturday, August 05, 2017 13:19 - CONCLUSION: Negative for occult inflammatory process. Keyur Miguel MD FACR Sacrum/Coccyx MRI 08/04/17 0832 Signed Impressions: Service Date/Time: Friday, August 04, 2017 11:18 - CONCLUSION: 1. Prostatomegaly with BPH. 2. Abnormal appearance of the right peripheral zone. Correlation with PSA is suggested. 3. Normal sacrum and coccyx. 4. No evidence of focal bony lesions or local regional lymphadenopathy. Haroon Strauss MD Lumbar Spine MRI 08/04/17 0832 Signed Impressions: Service Date/Time: Friday, August 04, 2017 11:18 - CONCLUSION: 1. Moderate to severe central spinal stenosis at L1-2, L2-3 and L4-5 as described. 2. Postsurgical changes at L3 and L4 following laminectomy and fusion. 3. Mild inflammatory arthropathy of the right L1-2 facet joint. 4. Mild to moderate degenerative disc disease. 5. No evidence of acute disc herniation or abnormal bony enhancement. Haroon Strauss MD Chest X-Ray 08/04/17 0000 Signed Impressions: Service Date/Time: Friday, August 04, 2017 15:42 - CONCLUSION: No acute cardiopulmonary process. Jorje Gallegos MD Abdomen/Pelvis CT 08/03/17 0955 Signed Impressions: Service Date/Time: Thursday, August 03, 2017 11:14 - CONCLUSION: 1. No drainable fluid collection/abscess status post appendectomy. 2. Marginally prominent jejunal loops consistent with mild adynamic ileus. 3. Ancillary findings, as above. Javi Renee MD Abdomen Ultrasound 08/03/17 0000 Signed Impressions: Service Date/Time: Thursday, August 03, 2017 13:35 - CONCLUSION: Unremarkable. Etiology for abdominal pain is not evident. Keyur Miguel MD FACR Physical Exam GENERAL: This is a well-nourished, well-developed patient, in no apparent distress. SKIN: No rashes, ecchymoses or lesions. Cool and dry. HEAD: Atraumatic. Normocephalic. No temporal or scalp tenderness. EYES: Pupils equal round and reactive. Extraocular motions intact. No scleral icterus. No injection or drainage. ENT: Nose without bleeding, purulent drainage or septal hematoma. Throat without erythema, tonsillar hypertrophy or exudate. Uvula midline. Airway patent. NECK: Trachea midline.Supple, nontender, no meningeal signs. CARDIOVASCULAR: Regular rate and rhythm without murmurs, gallops, or rubs. RESPIRATORY: Clear to auscultation. Breath sounds equal bilaterally. No wheezes , rales, or rhonchi. GASTROINTESTINAL: Abdomen soft, non-tender, nondistended. MUSCULOSKELETAL: Extremities without clubbing, cyanosis, or edema. On left knee at level of knee chronic swelling with no obvious signs of infection. Back: surgical scar intact. Tenderness at approx middle of surgical scar. NEUROLOGICAL: Awake and alert. Grossly non focal. Able to transfer from bed to chair on his own. Psych cooperative IV line sites with no e.o infection. Assessment & Plan Remarks Sepsis present on admission MSSA bacteremia Abrasion on right toney of tibia: not large enough to explain high grade bacteremia. Acute worsening of lumbar back pain (? epidural vs early discitis) Chronic back pain (h/o spinal injections last one in February 2017) Acute retention of urine (BPH related vs Nerve compression from spinal pathology ) Spinal stenosis on imaging. Recs Continue Ancef 2 gm IV q8hrs for MSSA bacteremia. Will consider Rifampin if bacteremia does not clear. Consult Cardiology: Spine MRI and WBC scan negative. For ORTIZ to rule out endocarditis due to persistent bacteremia. X ray of bilateral knee to look for occult abscess as source of infection. Follow cultures Follow clinically. Reviewed imaging. WBC scan to look for evidence of early discitis. d/w RN and . Aviva Silver MD Aug 06, 2017 14:09
--- NOTE | 2017-08-06 15:58 | RADRPT ---
EXAM DATE/TIME: 08/06/2017 14:22 [place] COMPARISON: CHEST SINGLE AP, August 04, 2017, 15:42. INDICATIONS : Septic arthritis MEDICAL HISTORY : Cardiovascular disease. SURGICAL HISTORY : lumbar fusion ENCOUNTER: Initial ACUITY: 3 days PAIN SCORE: 0/10 LOCATION: Right knee FINDINGS: The examination demonstrates severe patellofemoral osteoarthritis. Note is made of a large enthesophy te projecting off the superior and inferior poles of the patella as well as the tibial tubercle as we ll. There are mild degenerative changes in the medial and lateral compartment as well. There is a sma ll joint effusion. CONCLUSION: 1. Small joint effusion with tricompartmental osteoarthritis as above. Michael Miguel MD on August 06, 2017 at 15:55 Board Certified Radiologist. This report was verified electronically.
--- NOTE | 2017-08-06 16:00 | HHI.NSPN ---
(Gama Witt) History Chief Complaint: fever and sepsis. (Gama Witt) Interval History I was asked to see this 76-year-old gentleman admitted with abdominal pain, back pain, fever, urinary retention and constipation. He has been diagnosed with MSSA sepsis. Part of his workup included lumbar MRI which showed previous lumbar laminectomy and fusion L3 4 with left-sided pedicle screw instrumentation. The study also noted severe spinal stenosis above and below the fusion at the L2-3 and L4 5 levels with moderate stenosis at L1-2. Given the patient's history there is some question as to whether or not the instrumentation is infected however there is no clear-cut signs of infection on the MRI. Disc spaces are well maintained without evidence of inflammation. There is some signal enhancement around the pedicle screws however this may be due to chronic bony changes as the screws have been present since 2007. ESR has not been performed as of yet. Patient notes improvement in his back pain since admission. His main complaint at this point is constipation and he has not been able to move his bowels despite multiple enemas and oral stool softeners. 08/06: Patient is awake and alert sitting up in a chair today. He states that his right hip and groin area pain has resolved. He has also had bowel movements and is doing better. He was able to get up and ambulate today short distances. He denies any radiculopathy or paresthesias in the lower extremities. (Gama Witt) Review of Systems General: Negative for: fever, chills, insomnia Respiratory: Negative for: shortness of breath, cough, sputum Cardiovascular: Negative for: chest pain Gastrointestinal: Negative for: nausea, vomitting, diarrhea, constipation ( Gama Witt) Exam Results Vital Signs Date Time Temp Pulse Resp B/P (MAP) Pulse Ox O2 Delivery O2 Flow Rate FiO2 08/06/17 12:15 99.4 106 18 148/103 (118) 93 08/05/17 20:23 21 08/03/17 14:06 Room Air Intake and Output 08/06/17 08/06/17 08/07/17 08:00 16:00 00:00 Intake Total 2130 ml 325 ml Output Total 700 ml Balance 1430 ml 325 ml (Gama Witt) Physical Examination GENERAL: Patient sitting up in a chair awake and alert in no acute distress. HEAD: Normocephalic, atraumatic. EYES: Pupils equal. Sclera non icteric. RESPIRATORY: CTA Bilaterally HEART: Irregular. No murmurs. ABDOMEN: Soft Positive BS SKIN: No cyanosis or erythema. Patient does have a healing wound in the right knee. MUSCLE: Patient moves all 4 extremities, 5/5 strength in the lower extremities. He was able to ambulate short distances today. NEUROLOGIC: Patient is awake and alert. Speech is clear and appropriate. Follows commands well. Sensation intact in extremities, comprehension is good. (Gama Witt) Lab, Micro, Other Results Last Impressions Tumor Localization 08/05/17 0000 Signed Impressions: Service Date/Time: Saturday, August 05, 2017 13:19 - CONCLUSION: Negative for occult inflammatory process. Keyur Miguel MD FACR Sacrum/Coccyx MRI 08/04/17 0832 Signed Impressions: Service Date/Time: Friday, August 04, 2017 11:18 - CONCLUSION: 1. Prostatomegaly with BPH. 2. Abnormal appearance of the right peripheral zone. Correlation with PSA is suggested. 3. Normal sacrum and coccyx. 4. No evidence of focal bony lesions or local regional lymphadenopathy. Haroon Strauss MD Lumbar Spine MRI 08/04/17 0832 Signed Impressions: Service Date/Time: Friday, August 04, 2017 11:18 - CONCLUSION: 1. Moderate to severe central spinal stenosis at L1-2, L2-3 and L4-5 as described. 2. Postsurgical changes at L3 and L4 following laminectomy and fusion. 3. Mild inflammatory arthropathy of the right L1-2 facet joint. 4. Mild to moderate degenerative disc disease. 5. No evidence of acute disc herniation or abnormal bony enhancement. Haroon Strauss MD Chest X-Ray 08/04/17 0000 Signed Impressions: Service Date/Time: Friday, August 04, 2017 15:42 - CONCLUSION: No acute cardiopulmonary process. Jorje Gallegos MD Abdomen/Pelvis CT 08/03/17 0955 Signed Impressions: Service Date/Time: Thursday, August 03, 2017 11:14 - CONCLUSION: 1. No drainable fluid collection/abscess status post appendectomy. 2. Marginally prominent jejunal loops consistent with mild adynamic ileus. 3. Ancillary findings, as above. Javi Renee MD Abdomen Ultrasound 08/03/17 0000 Signed Impressions: Service Date/Time: Thursday, August 03, 2017 13:35 - CONCLUSION: Unremarkable. Etiology for abdominal pain is not evident. Keyur Miguel MD FACR Laboratory Tests Test 08/05/17 21:24 08/06/17 05:59 Erythrocyte Sedimentation Rate 45 mm/hr White Blood Count 7.9 TH/MM3 Red Blood Count 3.48 MIL/MM3 Hemoglobin 10.6 GM/DL Hematocrit 30.0 % Mean Corpuscular Volume 86.1 FL Mean Corpuscular Hemoglobin 30.5 PG Mean Corpuscular Hemoglobin Concent 35.4 % Red Cell Distribution Width 14.1 % Platelet Count 108 TH/MM3 Mean Platelet Volume 8.5 FL Neutrophils (%) (Auto) 77.7 % Lymphocytes (%) (Auto) 12.4 % Monocytes (%) (Auto) 9.1 % Eosinophils (%) (Auto) 0.5 % Basophils (%) (Auto) 0.3 % Neutrophils # (Auto) 6.2 TH/MM3 Lymphocytes # (Auto) 1.0 TH/MM3 Monocytes # (Auto) 0.7 TH/MM3 Eosinophils # (Auto) 0.0 TH/MM3 Basophils # (Auto) 0.0 TH/MM3 CBC Comment DIFF FINAL Differential Comment Activated Partial Thromboplast Time 40.1 SEC Blood Urea Nitrogen 12 MG/DL Creatinine 0.70 MG/DL Random Glucose 111 MG/DL Calcium Level 7.5 MG/DL Sodium Level 137 MEQ/L Potassium Level 3.2 MEQ/L Chloride Level 105 MEQ/L Carbon Dioxide Level 24.9 MEQ/L Anion Gap 7 MEQ/L Estimat Glomerular Filtration Rate 109 ML/MIN 08/06/17 08/06/17 08/07/17 15:00 23:00 07:00 Intake Total 1975 ml Balance 1975 ml IV Total 1975 ml (Gama Witt) Medical Decision Making Impression and Plan Assessment: Pt was having low back pain with right hip and groin pain upon admission with signs and symptoms of sepsis. He has a history of lumbar spinal fusion with instrumentation he states about 10 years ago in [place]. He was found to have lumbar spinal stenosis, severe at L2/L3 and L4/L5 and Moderate at L1/L2, and sepsis with concern of possible bacterial seeding of the spinal instrumentation. A tagged WBC study was negative for infection in the lumbar spine. Pts pain has also improved and he is now able to ambulate and denies any pain, paresthesias or weakness in the LEs. P: Pt will continue to undergo treatment for his sepsis with antibiotics. He currently is not having any significant symptoms related to his spinal stenosis such as radiculopathy, paresthesias or weakness in the LEs. He has a history of chronic low back pain and sees pain management for this. Pt states he has been told he has lumbar spinal stenosis in the past by his surgeon in [place] and at some point something may need to be done for that but was managing okay. The patient is visiting here for the winter. Pt can entertain this in the future if his symptoms should worsen. Currently he is not a surgical candidate currently given his sepsis, and he states he is feeling much better than his admission with no more pain in the right groin or weakness in the LEs. He understands he has severe lumbar stenosis and wants to continue with conservative management for now. (Gama Witt) Attending Statement The exam, history, and the medical decision-making described in the above note were completed with the assistance of the mid-level provider. I reviewed and agree with the findings presented. I attest that I had a [id number] encounter with the patient on the same day, and personally performed and documented my assessment and findings in the medical record. He relates that his right flank pain and groin pain has improved. He is voiding well and also had a bowel movement. He is on IV antibiotics for his sepsis/bacteremia and also on anticoagulation for his atrial fibrillation. He does have multilevel severe spinal stenosis but on tagged white blood cell study there is no infection in the spine or instrumentation. Accordingly at this point it is more paramount that his the sepsis and atrial fibrillation be treated. Lumbar spinal stenosis surgery can be undertaken on an elective basis once his medical conditions have stabilized and if his symptoms recur/progress. Patient is in agreement. (Jean Carlos Brunner MD) Gama Witt Aug 06, 2017 16:00 Jean Carlos Brunner MD Aug 06, 2017 16:06
[2017-08-06] MEDS: ATORVASTATIN 20 MG TAB PO SCH (20:09)
[2017-08-07] VITALS (25 sets, daily range): BP systolic 105–133; BP diastolic 67–91; PULSE 74–130; RESP 18–20; TEMP 98.5–99.3; O2SAT 93–98
[2017-08-07 06:50] LABS: HEMATOCRIT 30.2 % (39.0-51.0); MEAN CELL VOLUME 87.3 FL (80.0-100.0); MEAN CORPUSCULAR HEMOGLOBIN 30.2 PG (27.0-34.0); MEAN CORPUSCULAR HGB CONC 34.6 % (32.0-36.0); PLATELET COUNT 119 TH/MM3 (150-450); RED BLOOD COUNT 3.46 MIL/MM3 (4.50-5.90); RED CELL DISTRIBUTION WIDTH 14.2 % (11.6-17.2); REVIEW FLAG FINAL
[2017-08-07 07:16] LABS: APTT (PATIENT) 31.9 SEC (24.3-30.1); BICARBONATE 25.6 MEQ/L (21.0-32.0); POTASSIUM 3.3 MEQ/L (3.5-5.1)
[2017-08-07] MEDS: ceFAZolin 2 GM PREMIX 50 ML IV SCH ×2 (07:41→17:06)
[2017-08-07] MEDS: TAMSULOSIN HCL 0.4 MG CAP PO SCH ×2 (07:42→22:03)
[2017-08-07] MEDS: CHOLECALCIFEROL (VIT D3) 1000 UNIT TAB PO SCH (07:43)
[2017-08-07] MEDS: PANTOPRAZOLE SOD 40 MG DELAYED RELEASE TAB PO SCH (07:43)
[2017-08-07] MEDS: METOPROLOL SUCCINATE 25 MG EXTENDED RELEASE TAB PO SCH ×2 (07:43→22:04)
[2017-08-07] MEDS: ASPIRIN 81 MG CHEW TAB CHEW SCH (07:44)
[2017-08-07] MEDS: VITAMIN E 400 UNIT CAP PO SCH (07:44)
[2017-08-07] MEDS: DOCUSATE SODIUM 50 MG/SENNA 8.6 MG TAB PO SCH ×2 (07:45→22:03)
[2017-08-07] MEDS: SODIUM CHLORIDE 0.9% FLUSH 10 ML FLUSH IV FLUSH SCH ×2 (07:47→22:03)
--- NOTE | 2017-08-07 08:12 | PD.CONS ---
HPI Service Orthopedic Surgeons Consult Requested By Reason for Consult Left knee swelling Primary Care Physician No Primary Care Physician Admission Diagnosis Bacteremia Diagnoses: Chief Complaint: Bacteremia with abdominal pain History of Present Illness Patient is a 76-year-old gentleman who presented several days ago with actually me and abdominal pain. Patient was worked up extensively by neurosurgery, infectious disease, cardiology for sources of bacteremia and pain. Orthopedics was consult did for reported left knee swelling. Patient adamantly denies any left knee pain, swelling, redness, or difficulty ambulating. He states he has full active and passive range of motion without discomfort. He reports over 4 years ago he did have a left knee infection which required "Lancing." This sounds most likely to be prepatellar septic bursitis that was treated. He states he has been symptom-free since that time and denies any current issues with his left knee. Review of Systems Constitutional: DENIES: Fever Endocrine: DENIES: Polyuria Eyes: DENIES: Blurred vision Ears, nose, mouth, throat: DENIES: Throat pain Respiratory: DENIES: Cough Cardiovascular: DENIES: Chest pain Gastrointestinal: DENIES: Abdominal pain Genitourinary: DENIES: Urgency Musculoskeletal: DENIES: Joint pain, Stiffness Integumentary: DENIES: Rash Hematologic/lymphatic: DENIES: Bruising Immunologic/allergic: DENIES: Eczema Neurologic: DENIES: Abnormal gait Psychiatric: DENIES: Anxiety Past Family Social History Past Medical History Past Medical History Coronary artery disease status post 5 vessel CABG Hypertension Hyperlipidemia Past Surgical History Past Surgical History Five-vessel CABG in 2010 Back surgery for a slipped disc Cholecystectomy Appendectomy Reported Medications please see chart for full list Lipitor, Diovan, hydrochlorothiazide, metoprolol Allergies: Coded Allergies: No Known Allergies (Unverified , 08/03/17) Active Ordered Medications Current Medications Medications (Trade) Dose Ordered Sig/Lelia Route Start Time Stop Time Status Last Admin (NS Flush) 2 ml UNSCH PRN IV FLUSH 08/03/17 12:45 (NS Flush) 2 ml BID IV FLUSH 08/03/17 21:00 08/07/17 07:47 (Aspirin Chew) 162 mg DAILY CHEW 08/04/17 09:00 08/07/17 07:44 (Lipitor) 20 mg HS PO 08/03/17 21:00 08/06/17 20:09 (Vitamin D3) 1,000 units DAILY PO 08/04/17 09:00 08/07/17 07:43 (Microzide) 12.5 mg DAILY PO 08/04/17 09:00 Future Hold (Diovan) 40 mg DAILY PO 08/04/17 09:00 Future Hold (Vitamin E) 400 units DAILY PO 08/04/17 09:00 08/07/17 07:44 (Pill Splitter) 1 ea UNSCH PRN OTHER 08/03/17 13:00 (Tylenol) 650 mg Q6H PRN PO 08/03/17 13:15 08/03/17 14:06 (Zofran Inj) 4 mg Q6H PRN IV PUSH 08/03/17 13:15 (Protonix) 40 mg DAILY PO 08/04/17 09:00 08/07/17 07:43 (Missy-Colace) 1 tab BID PO 08/03/17 21:00 08/07/17 07:45 (Milk Of Magnesia Liq) 30 ml Q12H PRN PO 08/03/17 15:45 08/04/17 06:19 (Senokot) 17.2 mg Q12H PRN PO 08/03/17 15:45 08/05/17 08:30 (Dulcolax Supp) 10 mg DAILY PRN RECTAL 08/03/17 15:45 (Lactulose Liq) 30 ml DAILY PRN PO 08/03/17 15:45 08/05/17 08:30 (Morphine Inj) 2 mg Q3HR PRN IV PUSH 08/04/17 01:30 08/05/17 03:48 ([place] 5-325 Mg) 1 tab Q4H PRN PO 08/04/17 01:30 ([place] 10-325 Mg) 1 tab Q4H PRN PO 08/04/17 01:30 08/04/17 02:24 (Toprol Xl) 25 mg BID PO 08/04/17 21:00 08/07/17 07:43 (Flomax) 0.4 mg Q12HR PO 08/04/17 10:00 08/07/17 07:42 Heparin Sodium/ Dextrose 250 ml @ 10 mls/hr TITRATE PRN IV 08/04/17 11:30 08/06/17 07:45 Cefazolin Sodium/ Dextrose 50 ml @ 100 mls/hr Q8H IV 08/04/17 16:00 08/07/17 07:41 (Fleet Mineral Oil Enema) 118 ml DAILY PRN RECTAL 08/05/17 08:15 08/05/17 11:40 Reported Meds & Active Scripts Active Reported [place]-3 Fish Oil/Vitamin (Fish Oil-Cholecalciferol) 1,000-1,000 Mg Cap 1 Cap PO DAILY Vitamin E 200 Unit Cap 500 Units PO DAILY Vitamin D3 (Cholecalciferol) 1,000 Unit Cap 1,000 Units PO DAILY Vitamin C (Ascorbic Acid) 250 Mg Tab 1,000 Mg PO Aspirin 81 Mg Chew 162 Mg CHEW DAILY Lipitor (Atorvastatin Calcium) 20 Mg Tab 20 Mg PO HS Hydrochlorothiazide 12.5 Mg Tab 12.5 Mg PO DAILY Diovan (Valsartan) 40 Mg Tab 40 Mg PO DAILY Metoprolol Succinate ER 24 HR (Metoprolol Succinate) 25 Mg Tab 12.5 Mg PO HS Family History Denies heart or lung or cancer. Social History Previous smoker. Physical Exam Vital Signs Vital Signs Date Time Temp Pulse Resp B/P (MAP) Pulse Ox O2 Delivery O2 Flow Rate FiO2 08/07/17 06:00 82 08/07/17 04:49 98.6 88 20 114/67 (83) 94 08/07/17 04:00 88 08/07/17 02:00 86 08/07/17 00:00 98.6 91 20 126/81 (96) 93 08/07/17 00:00 91 08/06/17 22:00 97 08/06/17 20:35 21 08/06/17 20:00 109 08/06/17 19:00 98.6 109 20 126/99 (108) 99 08/06/17 18:00 104 08/06/17 17:00 102 08/06/17 16:20 98.6 114 20 126/76 (93) 95 08/06/17 16:00 106 08/06/17 15:00 117 08/06/17 14:00 110 08/06/17 13:00 112 08/06/17 12:15 99.4 106 18 148/103 (118) 93 08/06/17 12:00 103 08/06/17 09:00 110 08/06/17 08:30 99.5 103 18 147/91 (109) 93 Physical Exam Awake, alert, no acute distress. Examined while standing at the sink on both lower extremities. Normocephalic Pupils equal Moist mucous membranes No JVD Nonlabored respirations Regular rate Soft abdomen Left lower extremity: No erythema or warmth about the knee. Patient has full active range of motion of the knee from 0 to greater than 120. Patient has prepatellar bursal inflammation, appears chronic in nature and not acute. There is no fluctuance or erythema. There is no tenderness over this bursa. Patient is neurovascularly intact distally with sensation intact. Dorsalis pedis pulses palpable. Bilateral upper extremities and right lower extremities: No tenderness to palpation no deformities. No erythema. Full active range of motion and strength throughout. Sensation intact. Radial and dorsalis pedis pulses are palpable. No rashes Normal affect Laboratory Laboratory Tests Test 08/07/17 05:27 White Blood Count 8.0 Red Blood Count 3.46 Hemoglobin 10.5 Hematocrit 30.2 Mean Corpuscular Volume 87.3 Mean Corpuscular Hemoglobin 30.2 Mean Corpuscular Hemoglobin Concent 34.6 Red Cell Distribution Width 14.2 Platelet Count 119 Mean Platelet Volume 9.1 Activated Partial Thromboplast Time 31.9 Blood Urea Nitrogen 12 Creatinine 0.74 Random Glucose 100 Calcium Level 7.7 Sodium Level 138 Potassium Level 3.3 Chloride Level 104 Carbon Dioxide Level 25.6 Anion Gap 8 Estimat Glomerular Filtration Rate 103 Date/Time Source Procedure Growth Status 08/07/17 05:34 Blood Peripheral Aerobic Blood Culture Pending Received 08/07/17 05:34 Blood Peripheral Anaerobic Blood Culture Pending Received Result Diagram: 08/07/17 0527 08/07/17 0527 Imaging Last 48 hours Impressions Knee X-Ray 08/06/17 0000 Signed Impressions: Service Date/Time: Sunday, August 06, 2017 14:22 - CONCLUSION: 1. Small joint effusion with tricompartmental osteoarthritis as above. Michael Miguel MD Tagged white blood cell scan: Negative for acute or occult infection Assessment & Plan Assessment and Plan 76-year-old gentleman with history of bacteremia on presentation with no signs or symptoms on exam of knee infection I discussed with the patient that given his White blood cell scan is negative and clinically he has no symptoms of discomfort, swelling or erythema about his left knee I would not recommend any further management at this time. I did explain to the patient that he has baseline tricompartmental osteoarthritis in his left knee for which he states he is aware of this. Patient is not interested in any management for his left knee as he states he has no symptoms. Please call with any questions or concerns otherwise, patient can follow-up on an outpatient basis as needed. Lu Billingsley MD Aug 07, 2017 08:11
--- NOTE | 2017-08-07 11:01 | HHI.FPPN ---
Subjective Remarks Mr Bradshaw had no acute events overnight. He tells us he is having his best day in the hospital today. He has refused the xray on his left knee and wants to talk to Dr Silver about it. Pt is voiding, stooling and taking PO normally. He is scheduled for ORTIZ today with Dr Arrieta. Denies CP, SOB, N/V/D, and DVT pain. (Aman Gonzalez MD R1) Objective Vitals Vital Signs Date Time Temp Pulse Resp B/P (MAP) Pulse Ox O2 Delivery O2 Flow Rate FiO2 08/07/17 06:00 82 08/07/17 04:49 98.6 88 20 114/67 (83) 94 08/07/17 04:00 88 08/07/17 02:00 86 08/07/17 00:00 98.6 91 20 126/81 (96) 93 08/07/17 00:00 91 08/06/17 22:00 97 08/06/17 20:35 21 08/06/17 20:00 109 08/06/17 19:00 98.6 109 20 126/99 (108) 99 08/06/17 18:00 104 08/06/17 17:00 102 08/06/17 16:20 98.6 114 20 126/76 (93) 95 08/06/17 16:00 106 08/06/17 15:00 117 08/06/17 14:00 110 08/06/17 13:00 112 08/06/17 12:15 99.4 106 18 148/103 (118) 93 08/06/17 12:00 103 I/O 08/06/17 08/06/17 08/06/17 08/07/17 08/07/17 08/07/17 07:00 15:00 23:00 07:00 15:00 23:00 Intake Total 480 ml 1975 ml 880 ml 600 ml Output Total 700 ml 900 ml 1125 ml Balance -220 ml 1975 ml -20 ml -525 ml Intake Oral 480 ml 720 ml 600 ml IV Total 1975 ml 160 ml Output Urine Total 700 ml 900 ml 1125 ml # Bowel Movements 1 1 (Aman Gonzalez MD R1) Result Diagram: 08/07/1752608/07/17526 Imaging Last Impressions Knee X-Ray 08/07/17 103 Signed Impressions: Service Date/Time: Monday, August 07, 2017 10:53 - CONCLUSION: 1. Prominent osseous spur at the tibial tubercle with small osseous spurs superiorly and inferiorly off the patella. 2. No fracture or effusion. No significant degenerative changes. 3. Atherosclerotic calcification of the regional vasculature Jorje Gallegos MD Tumor Localization 08/05/17 0000 Signed Impressions: Service Date/Time: Saturday, August 05, 2017 13:19 - CONCLUSION: Negative for occult inflammatory process. Keyur Miguel MD FACR Sacrum/Coccyx MRI 08/04/17 0832 Signed Impressions: Service Date/Time: Friday, August 04, 2017 11:18 - CONCLUSION: 1. Prostatomegaly with BPH. 2. Abnormal appearance of the right peripheral zone. Correlation with PSA is suggested. 3. Normal sacrum and coccyx. 4. No evidence of focal bony lesions or local regional lymphadenopathy. Haroon Strauss MD Lumbar Spine MRI 08/04/17 0832 Signed Impressions: Service Date/Time: Friday, August 04, 2017 11:18 - CONCLUSION: 1. Moderate to severe central spinal stenosis at L1-2, L2-3 and L4-5 as described. 2. Postsurgical changes at L3 and L4 following laminectomy and fusion. 3. Mild inflammatory arthropathy of the right L1-2 facet joint. 4. Mild to moderate degenerative disc disease. 5. No evidence of acute disc herniation or abnormal bony enhancement. Haroon Strauss MD Chest X-Ray 08/04/17 0000 Signed Impressions: Service Date/Time: Friday, August 04, 2017 15:42 - CONCLUSION: No acute cardiopulmonary process. Jorje Gallegos MD Abdomen/Pelvis CT 08/03/17 0955 Signed Impressions: Service Date/Time: Thursday, August 03, 2017 11:14 - CONCLUSION: 1. No drainable fluid collection/abscess status post appendectomy. 2. Marginally prominent jejunal loops consistent with mild adynamic ileus. 3. Ancillary findings, as above. Javi Renee MD Abdomen Ultrasound 08/03/17 0000 Signed Impressions: Service Date/Time: Thursday, August 03, 2017 13:35 - CONCLUSION: Unremarkable. Etiology for abdominal pain is not evident. Keyur Miguel MD FACR Objective Remarks GENERAL: WDWN elderly but spry male patient laying in bed in no acute distress. SKIN: Has abrasions on bilateral knees. No rashes noted. HEENT: Normocephalic, atraumatic, no nasal discharge. No oral sores. NECK: Supple, no meningeal signs, no lymphadenopathy. Trachea midline. CARDIOVASCULAR: Regular rate and irregular rhythm without murmur, gallop, or rub. Peripheral pulses and capillary refill wnl. RESPIRATORY: Clear to auscultation in all lung rojas. Breath sounds equal bilaterally. No wheezes, rales, or rhonchi. No increased WOB. GASTROINTESTINAL: No tenderness to palpation of the abdomen. Normal BS with no guarding or rigidity. MSK: Normal range of motion; can ambulate w/o pain. Moves all extremities spontaneously with good coordination. Neuro: Awake, alert, PERRLA, EOMI, CN intact, normal strength and sensation distally. Medications and IVs Current Medications Medications (Trade) Dose Ordered Sig/Lelia Route Start Time Stop Time Status Last Admin (NS Flush) 2 ml UNSCH PRN IV FLUSH 08/03/17 12:45 (NS Flush) 2 ml BID IV FLUSH 08/03/17 21:00 08/07/17 07:47 (Aspirin Chew) 162 mg DAILY CHEW 08/04/17 09:00 08/07/17 07:44 (Lipitor) 20 mg HS PO 08/03/17 21:00 08/06/17 20:09 (Vitamin D3) 1,000 units DAILY PO 08/04/17 09:00 08/07/17 07:43 (Microzide) 12.5 mg DAILY PO 08/04/17 09:00 Future Hold (Diovan) 40 mg DAILY PO 08/04/17 09:00 Future Hold (Vitamin E) 400 units DAILY PO 08/04/17 09:00 08/07/17 07:44 (Pill Splitter) 1 ea UNSCH PRN OTHER 08/03/17 13:00 (Tylenol) 650 mg Q6H PRN PO 08/03/17 13:15 08/03/17 14:06 (Zofran Inj) 4 mg Q6H PRN IV PUSH 08/03/17 13:15 (Protonix) 40 mg DAILY PO 08/04/17 09:00 08/07/17 07:43 (Missy-Colace) 1 tab BID PO 08/03/17 21:00 08/07/17 07:45 (Milk Of Magnesia Liq) 30 ml Q12H PRN PO 08/03/17 15:45 08/04/17 06:19 (Senokot) 17.2 mg Q12H PRN PO 08/03/17 15:45 08/05/17 08:30 (Dulcolax Supp) 10 mg DAILY PRN RECTAL 08/03/17 15:45 (Lactulose Liq) 30 ml DAILY PRN PO 08/03/17 15:45 08/05/17 08:30 (Morphine Inj) 2 mg Q3HR PRN IV PUSH 08/04/17 01:30 08/05/17 03:48 ([place] 5-325 Mg) 1 tab Q4H PRN PO 08/04/17 01:30 ([place] 10-325 Mg) 1 tab Q4H PRN PO 08/04/17 01:30 08/04/17 02:24 (Toprol Xl) 25 mg BID PO 08/04/17 21:00 08/07/17 07:43 (Flomax) 0.4 mg Q12HR PO 08/04/17 10:00 08/07/17 07:42 Heparin Sodium/ Dextrose 250 ml @ 10 mls/hr TITRATE PRN IV 08/04/17 11:30 Future hold 08/06/17 07:45 Cefazolin Sodium/ Dextrose 50 ml @ 100 mls/hr Q8H IV 08/04/17 16:00 08/07/17 17:06 (Fleet Mineral Oil Enema) 118 ml DAILY PRN RECTAL 08/05/17 08:15 08/05/17 11:40 (Aman Gonzalez MD R1) Urinary Catheter: No (Aman Gonzalez MD R1) Vascular Central Line Catheter: No (Aman Gonzalez MD R1) A/P Assessment and Plan 76-year-old male presented on 08/03/17 with right lower quadrant/right groin pain, met sepsis criteria with unknown source, blood cultures positive for MSSA , being treated with Ancef IV. Also with new onset atrial fibrillation with RVR and acute urinary retention. Infectious disease, neurosurgery, urology, and cardiology are on board. Discussed with Drs. Rojo and Eko Discharge Planning Pending resolution of fevers, leukocytosis, good heart rate control, anticoagulated appropriately, resolution of acute urinary retention, and recommendations from neurosurgery, urology, cardiology, and infectious disease. (Aman Gonzalez MD R1) Attending Attestation Patient seen and examined. Case reviewed and discussed Agree with plan of care as discussed with me and documented in the resident note. (Ana Rojo MD) Problem List: (1) Sepsis ICD Codes: A41.9 - Sepsis, unspecified organism Status: Acute Plan: Initially meeting sepsis criteria with leukocytosis and fevers, positive blood cultures with MSSA. Lactate normal. Elevated pulse, found to be in atrial fibrillation with RVR. Maintaining normal blood pressures, otherwise hemodynamically stable. Now afebrile >24hours. On admit, UA that is bloody but no nitrites or leukocyte esterase. MRI of lumbar and sacral spine not showing any epidural abscess from Hx of corticosteroid injections in lower back, or sign of osteomyelitis/infected metal hardware from spinal fusion >10years ago. CT abdomen showing no source of infection. Has abrasions on knees that could be source of possible entrance. No history of IV drug use. - UA and CXR neg - CRP 13.00 - Continue Ancef 2 g IV started 08/04/2017 - Blood cx: trending daily until free of infection -- positive MSSA 08/03-08/05 ; 08/07 cx pending - ID consulted, Dr Silver following, appreciate recs - 2D ECHO with mild tricuspid regurgitation, mild to moderate mitral valve regurgitation, and moderate left atrial dilation, no mention of vegetations - Dr Arrieta, Cardiology, performed ORTIZ 08/07 - report pending - Xray: Left knee w/no s/s of infection; Right knee with small effusion and tricompartmental osteoarthritis - Orthopedic consult negative for sign of osteomyelitis (2) Urinary retention ICD Codes: R33.9 - Retention of urine, unspecified Status: Acute Plan: Acute urinary retention with gross hematuria. Concern for moderate to severe lumbar stenosis, possible source of urinary retention. Also with enlarged prostate noted on MRI. No epidural abscess noted on MRI of back. Lower extremity weakness subjectively, but strength is normal on neuro exam. Normal rectal tone on examination. Enlarged prostate not appreciated on exam but is noted on imaging. Spoke with neurosurgeon on 08/04 Dr. Rubin on the phone and stat consult order was placed. - Consult urology - started on Flomax 0.4 mg PO every 12 hours - Straight catheter as needed - no requirement for cath overnight - PSA within normal limits at 1.61 - Urinary retention appears to have resolved 08/06 following a 1-2 large bowel movements, the first the pt has had in 4-5 days - Neurosurgery consulted and do not plan to intervene at this time (3) Constipation ICD Codes: K59.00 - Constipation, unspecified Status: Chronic Plan: -Patient reports having problems with chronic constipation but appears to have resolved with 3 BM since 08/05 -Currently on severe constipation regimen with additional fleets enema with mineral oil PRN -Missy-colace 1 tab BID (4) Atrial fibrillation with RVR ICD Codes: I48.91 - Unspecified atrial fibrillation Plan: Stable. Patient initially presented with regular rate and rhythm but developed new onset A. fib with RVR. Received 10 mg IV diltiazem bolus and was transitioned to diltiazem drip which was discontinued after resolution of RVR but remains in A. fib. Troponins elevated but flat on trend. TSH WNL at 0.876. BNP mildly elevated. - 2D ECHO shows moderate after atrial enlargement - Cardiology consult for new onset A. fib - Per cardiology, on metoprolol XR 25 mg twice a day - Started on heparin drip (in case of procedure), likely bridge to a NOAC when stable - Dr Arrieta performed ORTIZ 08/07 at request of ID to r/o endocarditis -- report pending (5) Right lower quadrant abdominal pain ICD Codes: R10.31 - Right lower quadrant pain Status: Acute Plan: Resolved. Pt with lw/o abdominal pain today. Differential diagnoses includes resolved right kidney stone, early colitis, septic right hip joint, muscle spasm with radiculopathy, lumbar stenosis with radiculopathy, spinal abscess. Urine positive for occult blood and 30 RBCs. Renal US essentially normal except for small upper pole cyst also seen on CT abdomen. No hydronephrosis, stone, or mass on either CT or US. Mild adynamic ileus on CT scan. Last bowel movement was on Wednesday 08/01 and was normal but larger than usual. MRI of lower back shows moderate to severe lumbar stenosis. -[place] for pain, Morphine for breakthrough pain. -Constipation regimen -Neurosurgery consulted for moderate to severe lumbar stenosis and neurological findings, and would plan to address spinal stenosis as outpt after bacteremia cleared and Afib stable -Urine filter for possible stone -Urology on board for urological symptoms - Flomax as above. (6) Thrombocytopenia ICD Codes: D69.6 - Thrombocytopenia, unspecified Status: Acute Plan: Resolving. Platelets 120 on admission with normal H/H, dropped to 87 with heparin drip, 119 on 08/07 and rising. - HIIT gera negative for antibodies - Monitor platelets w/daily CBC, patient is on heparin IV - Monitor for spontaneous bleeding (7) Hyperbilirubinemia ICD Codes: E80.6 - Other disorders of bilirubin metabolism Status: Acute Plan: Total bilirubin of 2.3 with breakdown as follows: Direct bilirubin 0.5, indirect bilirubin 1.8. May be Gilbert versus acute hemolysis. Also with blood in urine. - Hepatitis profile pending - Check LDH within normal limits and haptoglobin elevated (8) Chronic Medical Problems Status: Chronic Plan: Hypertension: Holding valsartan and hydrochlorothiazide, BP wnl since last night -Atorvastatin 20mg qhs PO for vascular odilon -Metoprolol 25mg BID as above (9) FEN/DVT PPX/GI PPX/Nursing Orders Plan: Fluids: holding IVF Electrolytes: Will monitor and replace as needed Nutrition: Heart healthy diet DVT Prophylaxis: Lovenox 40mg daily GI Prophylaxis: Protonix 40mg PO daily Constipation prophylaxis: Pericolace 1 tab PO BID scheduled, milk of magnesia PRN, lactulose, Fleet's enema PRN Medications Tylenol 650 mg by mouth every 4 hours when necessary pain 1-10 or temperature greater than 100.4F Zofran 4 mg IV push every 6 hours when necessary nausea vomiting [place] 325-5 mg 1 tab by mouth every 6 hours when necessary pain 5-7 [place] 325-10 mg 1 tab by mouth every 6 hours when necessary pain 8-10 Morphine 2 mg IV push every 3 hours when necessary breakthrough pain -Vitals Q4h -Monitor I's and O's -surveillance monitor with telemetry with continuous vital signs -Activity OOB with assistance -PT to assist with ambulation and strengthening exercises -Case management consult to assist with discharge disposition (Aman Gonzalez MD R1) Problem Qualifiers (1) Sepsis: Qualified Codes: A41.01 - Sepsis due to methicillin susceptible Staphylococcus aureus Aman Gonzalez MD R1 Aug 07, 2017 11:01 Ana Rojo MD Aug 13, 2017 16:24
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
--- NOTE | 2017-08-07 12:35 | PD.CARD ---
Cardiology Procedure Note Procedure Name: ORTIZ Procedure Date: Aug 07, 2017 Procedure Note: Preliminary findings: 1. THANH thrombus 2. Echogenic mobile structure in aortic valve suggestive of a vegetation ORTIZ report to follow Italo Duff MD Aug 07, 2017 12:35
--- NOTE | 2017-08-07 13:04 | ECHRPT ---
Indication: CONCLUSIONS Normal LV systolic function Thrombus present in the Left Atrial Appendage There is an echogenic structure in the Aortic Valve suggestive of thrombus vs. vegetation Normal Mitral and tricuspid valves No Pericardial effusion BP: / HR: Rhythm: Technical Quality: Medications Complications Proc. Components Italo Duff MD (Electronically Signed) Final Date:07 August 2017 13:03
--- NOTE | 2017-08-07 13:09 | HHI.IDPN ---
Subjective Subjective Remarks is a 76 y/o CM with PMHx of Chronic back pain s/p lumbar spine surgery with hardware in place. Patient also reports seeing a pain medicine physician with injection into ? epidural space in February 2017. 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 Patient past medical history is also significant for h/o CAD s/p CABG. With this background he presents to the [place] ED with chief complaint of right lower quadrant pain of 2 days duration which starts in lower back and radiates forward. He describes the pain as 10/10 pain that mata like fire. Patient states that he was remodeling in an apartment on Sunday and did well all day. He went to bed that night and woke up around 4 AM on morning with severe right back pain that radiated to his right lower quadrant/suprapubic area. Patient states that the pain was so severe that he could not move any part of his body without feeling pain. He was finally able to get himself out of bed and took 2 Aleve pills but could not do much the entire day and could barely walk. The pain initially subsided and then started to get worse again such that his friend convinced him to come to the ER. He has not been ill prior to this incident and denies any sick contacts. Patient gives history of high grade fevers 101 F prior to admission with chills. On admission, patient met sepsis criteria with WBC 17.2, HR 99 and sepsis workup initiated. Blood cultures drawn on admission positive for MSSA ID consulted for evaluation and Mment of MSSA bacteremia. On admission had CT Abd pelvis which did not help identify any acute process. Due to persistent back pain and acute retention of urine overnight patient underwent an MRI L spine and sacrum which showed spinal stenosis but no epidural abscess or discitis. Neurosurgery eval is pending. Overnight events reviewed. BCX 2nd set 08/03, 08/04, 08/05 are positive for MSSA or GP cocci likely MSSA on subsequent ones. MRI spine negative WBC scan negative. 2D ECHO negative. ORTIZ planned earlier. At time of my dictation report is available but when I saw pt he was pre-procedure ORTIZ. Patient does give history of cortisone injection in spine 1 month back. He also gives h/o having scraped his arms and legs multiple times. He also endorses repeated infections mostly around his knees. He reports that due to his neuropathy patient has had to bend down on knees to lift objects off the floor. 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 He endorses scraping his right toney of tibia but no active cellulitis or abscess at any point. Antibiotics Ancef IV Lines Line sites with no e.o infection Past Medical History Lumbar spine surgery with hardware in place. Chronic back pain with h/o cortisone injections. Allergies: Coded Allergies: No Known Allergies (Unverified , 08/03/17) Objective . Vital Signs Date Time Temp Pulse Resp B/P (MAP) Pulse Ox O2 Delivery O2 Flow Rate FiO2 08/07/17 11:05 99.2 82 18 105/77 (86) 94 08/07/17 07:30 99.3 98 20 124/81 (95) 93 08/07/17 06:00 82 08/07/17 04:49 98.6 88 20 114/67 (83) 94 08/07/17 04:00 88 08/07/17 02:00 86 08/07/17 00:00 98.6 91 20 126/81 (96) 93 08/07/17 00:00 91 08/06/17 22:00 97 08/06/17 20:35 21 08/06/17 20:00 109 08/06/17 19:00 98.6 109 20 126/99 (108) 99 08/06/17 18:00 104 08/06/17 17:00 102 08/06/17 16:20 98.6 114 20 126/76 (93) 95 08/06/17 16:00 106 08/06/17 15:00 117 08/06/17 14:00 110 08/06/17 13:00 112 08/07/17 08/07/17 08/08/17 15:00 23:00 07:00 Intake Total 90 ml Balance 90 ml IV Total 90 ml . Laboratory Tests Test 08/05/17 21:24 08/06/17 05:59 08/07/17 05:27 Erythrocyte Sedimentation Rate 45 mm/hr White Blood Count 7.9 TH/MM3 8.0 TH/MM3 Red Blood Count 3.48 MIL/MM3 3.46 MIL/MM3 Hemoglobin 10.6 GM/DL 10.5 GM/DL Hematocrit 30.0 % 30.2 % Mean Corpuscular Volume 86.1 FL 87.3 FL Mean Corpuscular Hemoglobin 30.5 PG 30.2 PG Mean Corpuscular Hemoglobin Concent 35.4 % 34.6 % Red Cell Distribution Width 14.1 % 14.2 % Platelet Count 108 TH/MM3 119 TH/MM3 Mean Platelet Volume 8.5 FL 9.1 FL Neutrophils (%) (Auto) 77.7 % Lymphocytes (%) (Auto) 12.4 % Monocytes (%) (Auto) 9.1 % Eosinophils (%) (Auto) 0.5 % Basophils (%) (Auto) 0.3 % Neutrophils # (Auto) 6.2 TH/MM3 Lymphocytes # (Auto) 1.0 TH/MM3 Monocytes # (Auto) 0.7 TH/MM3 Eosinophils # (Auto) 0.0 TH/MM3 Basophils # (Auto) 0.0 TH/MM3 CBC Comment DIFF FINAL Differential Comment Laboratory Tests Test 08/06/17 05:59 08/07/17 05:27 Blood Urea Nitrogen 12 MG/DL 12 MG/DL Creatinine 0.70 MG/DL 0.74 MG/DL Random Glucose 111 MG/DL 100 MG/DL Calcium Level 7.5 MG/DL 7.7 MG/DL Sodium Level 137 MEQ/L 138 MEQ/L Potassium Level 3.2 MEQ/L 3.3 MEQ/L Chloride Level 105 MEQ/L 104 MEQ/L Carbon Dioxide Level 24.9 MEQ/L 25.6 MEQ/L Anion Gap 7 MEQ/L 8 MEQ/L Estimat Glomerular Filtration Rate 109 ML/MIN 103 ML/MIN Microbiology Date/Time Source Procedure Growth Status 08/07/17 05:34 Blood Peripheral Aerobic Blood Culture Pending Received 08/07/17 05:34 Blood Peripheral Anaerobic Blood Culture Pending Received 08/07/17 05:27 Blood Peripheral Aerobic Blood Culture Pending Received 08/07/17 05:27 Blood Peripheral Anaerobic Blood Culture Pending Received 08/05/17 10:55 Blood Peripheral Aerobic Blood Culture - Preliminary Gram Positive Cocci Resulted 08/05/17 10:55 Blood Peripheral Anaerobic Blood Culture - Preliminary NO GROWTH IN 2 DAYS Resulted 08/05/17 10:50 Blood Peripheral Aerobic Blood Culture - Final Staphylococcus Aureus Resulted 08/05/17 10:50 Blood Peripheral Anaerobic Blood Culture - Preliminary NO GROWTH IN 2 DAYS Resulted 08/04/17 13:58 Blood Peripheral Aerobic Blood Culture - Final Staphylococcus Aureus Resulted 08/04/17 13:58 Blood Peripheral Anaerobic Blood Culture - Preliminary NO GROWTH IN 3 DAYS Resulted 08/04/17 13:50 Blood Peripheral Aerobic Blood Culture - Final Staphylococcus Aureus Resulted 08/04/17 13:50 Blood Peripheral Anaerobic Blood Culture - Preliminary NO GROWTH IN 3 DAYS Resulted Imaging Last Impressions Tumor Localization 08/05/17 0000 Signed Impressions: Service Date/Time: Saturday, August 05, 2017 13:19 - CONCLUSION: Negative for occult inflammatory process. Keyur Miguel MD FACR Sacrum/Coccyx MRI 08/04/17 0832 Signed Impressions: Service Date/Time: Friday, August 04, 2017 11:18 - CONCLUSION: 1. Prostatomegaly with BPH. 2. Abnormal appearance of the right peripheral zone. Correlation with PSA is suggested. 3. Normal sacrum and coccyx. 4. No evidence of focal bony lesions or local regional lymphadenopathy. Haroon Strauss MD Lumbar Spine MRI 08/04/17 0832 Signed Impressions: Service Date/Time: Friday, August 04, 2017 11:18 - CONCLUSION: 1. Moderate to severe central spinal stenosis at L1-2, L2-3 and L4-5 as described. 2. Postsurgical changes at L3 and L4 following laminectomy and fusion. 3. Mild inflammatory arthropathy of the right L1-2 facet joint. 4. Mild to moderate degenerative disc disease. 5. No evidence of acute disc herniation or abnormal bony enhancement. Haroon Strauss MD Chest X-Ray 08/04/17 0000 Signed Impressions: Service Date/Time: Friday, August 04, 2017 15:42 - CONCLUSION: No acute cardiopulmonary process. Jorje Gallegos MD Abdomen/Pelvis CT 08/03/17 0955 Signed Impressions: Service Date/Time: Thursday, August 03, 2017 11:14 - CONCLUSION: 1. No drainable fluid collection/abscess status post appendectomy. 2. Marginally prominent jejunal loops consistent with mild adynamic ileus. 3. Ancillary findings, as above. Javi Renee MD Abdomen Ultrasound 08/03/17 0000 Signed Impressions: Service Date/Time: Thursday, August 03, 2017 13:35 - CONCLUSION: Unremarkable. Etiology for abdominal pain is not evident. Keyur Miguel MD FACR Physical Exam GENERAL: This is a well-nourished, well-developed patient, in no apparent distress. SKIN: No rashes, ecchymoses or lesions. Cool and dry. HEAD: Atraumatic. Normocephalic. No temporal or scalp tenderness. EYES: Pupils equal round and reactive. Extraocular motions intact. No scleral icterus. No injection or drainage. ENT: Nose without bleeding, purulent drainage or septal hematoma. Throat without erythema, tonsillar hypertrophy or exudate. Uvula midline. Airway patent. NECK: Trachea midline.Supple, nontender, no meningeal signs. CARDIOVASCULAR: Regular rate and rhythm without murmurs, gallops, or rubs. RESPIRATORY: Clear to auscultation. Breath sounds equal bilaterally. No wheezes , rales, or rhonchi. GASTROINTESTINAL: Abdomen soft, non-tender, nondistended. MUSCULOSKELETAL: Extremities without clubbing, cyanosis, or edema. On left knee at level of knee chronic swelling at level of bursa with no obvious signs of infection. Back: surgical scar intact. Tenderness at approx middle of surgical scar. NEUROLOGICAL: Awake and alert. Grossly non focal. Able to transfer from bed to chair on his own. Psych cooperative IV line sites with no e.o infection. Assessment & Plan Remarks Sepsis present on admission MSSA bacteremia Abrasion on right toney of tibia: not large enough to explain high grade bacteremia. Acute worsening of lumbar back pain (? epidural vs early discitis) Chronic back pain (h/o spinal injections last one in February 2017) Acute retention of urine (BPH related vs Nerve compression from spinal pathology ) Spinal stenosis on imaging. Recs Continue Ancef 2 gm IV q8hrs for MSSA bacteremia. Will be easier to transition as outpatient for home infusions when bacteremia cleared and patient ready for discharge. Will consider Rifampin if bacteremia does not clear and the BCX from 08/07/17 are positive. Appreciate cardiology input. X ray of bilateral knee negative for abscess. Appreciate ortho recs: does not think knees are source of infection. Follow cultures Follow clinically. Reviewed imaging. Provided patient's RN research on Sepsis, MSSA bacteremia, Endocarditis, Vertebral osteomyelitis from patient section of education to be given to patient. d/w RN and and resident team: patient was very argumentative with me today and wanted two oral antibiotics started instead of IV. He thinks Ancef is not strong enough. Explained to him that the bacteremia is persistent likely due to an occult larger focus of infections such as endocarditis or vertebral discitis. I explained to him the short comings of WBC scan and that in early stages it can be falsely negative and repeat imaging is sometimes needed. He thinks we are wasting too much of his time and he is just sitting here in the hospital. Explained to him workup is being ordered. He responded why were all tests not done on 1st day. I explained to him that all workup cannot be done on 1 day that results of one test determine the next step. Critical thinking and decision making. Aviva Silver MD Aug 07, 2017 13:09
[2017-08-07] MEDS: ATORVASTATIN 20 MG TAB PO SCH (22:03)
[2017-08-07] MEDS ORDERED: POTASSIUM CHLORIDE 25 MEQ EFFERVESCENT TAB PO ONE (22:30)
[2017-08-07 23:37] LABS: APTT (PATIENT) 26.5 SEC (24.3-30.1)
[2017-08-08] VITALS (20 sets, daily range): BP systolic 126–149; BP diastolic 72–87; PULSE 67–130; RESP 18; TEMP 98–99.1; O2SAT 95–97
[2017-08-08] MEDS: ceFAZolin 2 GM PREMIX 50 ML IV SCH ×3 (00:46→16:00)
[2017-08-08 06:24] LABS: AUTOMATED NEUTROPHIL # 5.1 TH/MM3 (1.8-7.7); BASOPHIL % 0.6 % (0.0-2.0); EOSINOPHIL # 0.2 TH/MM3 (0-0.4); EOSINOPHIL % 2.6 % (0.0-4.0); HEMATOCRIT 31.3 % (39.0-51.0); HEMO FLAGS DIFF FINAL; LYMPH % 17.3 % (9.0-44.0); LYMPHOCYTE # 1.3 TH/MM3 (1.0-4.8); MEAN CELL VOLUME 87.7 FL (80.0-100.0); MEAN CORPUSCULAR HEMOGLOBIN 30.2 PG (27.0-34.0); MEAN CORPUSCULAR HGB CONC 34.4 % (32.0-36.0); MONO % 10.4 % (0.0-8.0); NEUT % 69.1 % (16.0-70.0); PLATELET COUNT 154 TH/MM3 (150-450); RED BLOOD COUNT 3.57 MIL/MM3 (4.50-5.90); RED CELL DISTRIBUTION WIDTH 14.3 % (11.6-17.2); WHITE BLOOD COUNT 7.4 TH/MM3 (4.0-11.0)
[2017-08-08 06:29] LABS: APTT (PATIENT) 33.9 SEC (24.3-30.1)
[2017-08-08 06:52] LABS: BICARBONATE 25.8 MEQ/L (21.0-32.0); POTASSIUM 3.5 MEQ/L (3.5-5.1)
[2017-08-08] MEDS: TAMSULOSIN HCL 0.4 MG CAP PO SCH ×2 (09:00→21:21)
[2017-08-08] MEDS: PANTOPRAZOLE SOD 40 MG DELAYED RELEASE TAB PO SCH (09:00)
[2017-08-08] MEDS: DOCUSATE SODIUM 50 MG/SENNA 8.6 MG TAB PO SCH ×2 (09:00→21:21)
[2017-08-08] MEDS: CHOLECALCIFEROL (VIT D3) 1000 UNIT TAB PO SCH (09:00)
[2017-08-08] MEDS: METOPROLOL SUCCINATE 25 MG EXTENDED RELEASE TAB PO SCH ×2 (09:00→21:21)
[2017-08-08] MEDS: VITAMIN E 400 UNIT CAP PO SCH (09:00)
[2017-08-08] MEDS: SODIUM CHLORIDE 0.9% FLUSH 10 ML FLUSH IV FLUSH SCH ×2 (09:00→21:21)
[2017-08-08] MEDS: ASPIRIN 81 MG CHEW TAB CHEW SCH (09:00)
[2017-08-08] MEDS ORDERED: Gentamicin Consult Pharmacy 1 EA OTHER SCH (09:30)
[2017-08-08] MEDS: ACETAMINOPHEN/HYDROcodone 325 MG/5 MG TAB PO PRN (13:00)
--- NOTE | 2017-08-08 13:11 | HHI.FPPN ---
Subjective Remarks Mr Bradshaw had no acute events overnight. He had a BM this morning and is feeling well; however, nursing reports when he ambulates, his HR quickly jumps into the 120s. He is anxious to leave the hospital and seems frustrated that the IV antibiotics do not seem to be working as quickly as he would like. Denies fever, CP, SOB, N/V/D, and DVT pain. (Aman Gonzalez MD R1) Objective Vitals Vital Signs Date Time Temp Pulse Resp B/P (MAP) Pulse Ox O2 Delivery O2 Flow Rate FiO2 08/08/17 06:43 08/08/17 06:03 94 08/08/17 05:01 95 08/08/17 04:01 83 08/08/17 03:01 98.6 84 18 129/75 (93) 95 08/08/17 03:01 101 08/08/17 02:01 81 08/08/17 01:01 82 08/08/17 00:01 89 08/07/17 23:01 98.8 93 18 114/67 (83) 97 08/07/17 23:01 101 08/07/17 22:01 99 08/07/17 21:01 91 08/07/17 20:01 96 08/07/17 19:32 97 08/07/17 19:01 101 08/07/17 19:01 99.2 101 18 133/91 (105) 98 08/07/17 18:00 90 08/07/17 17:25 98.8 95 18 114/67 (83) 96 08/07/17 17:00 90 08/07/17 16:00 96 08/07/17 15:00 98 08/07/17 14:00 98 08/07/17 13:17 98.5 102 18 124/83 (97) 98 I/O 08/07/17 08/07/17 08/07/17 08/08/17 08/08/17 08/08/17 07:00 15:00 23:00 07:00 15:00 23:00 Intake Total 600 ml 90 ml 50 ml 403 ml Output Total 1125 ml 700 ml Balance -525 ml 90 ml 50 ml -297 ml Intake Oral 600 ml 240 ml IV Total 90 ml 50 ml 163 ml Output Urine Total 1125 ml 700 ml # Bowel Movements 0 (Aman Gonzalez MD R1) Result Diagram: 08/08/17 0520 08/08/17 0520 Imaging Last 48 hours Impressions Knee X-Ray 08/07/17 1035 Signed Impressions: Service Date/Time: Monday, August 07, 2017 10:53 - CONCLUSION: 1. Prominent osseous spur at the tibial tubercle with small osseous spurs superiorly and inferiorly off the patella. 2. No fracture or effusion. No significant degenerative changes. 3. Atherosclerotic calcification of the regional vasculature Jorje Gallegos MD Objective Remarks GENERAL: WDWN elderly but spry male patient laying in bed in no acute distress. SKIN: Has abrasions on bilateral knees. No rashes noted. HEENT: Normocephalic, atraumatic, no nasal discharge. No oral sores. NECK: Supple, no meningeal signs, no lymphadenopathy. Trachea midline. CARDIOVASCULAR: Regular rate and irregular rhythm without murmur, gallop, or rub. Peripheral pulses and capillary refill wnl. RESPIRATORY: Clear to auscultation in all lung rojas. Breath sounds equal bilaterally. No wheezes, rales, or rhonchi. No increased WOB. GASTROINTESTINAL: No tenderness to palpation of the abdomen. Normal BS with no guarding or rigidity. MSK: Normal range of motion; can ambulate w/o pain. Moves all extremities spontaneously with good coordination. Neuro: Awake, alert, PERRLA, EOMI, CN intact, normal strength and sensation distally. Procedures Transesophageal ECHO - 08/07/17 Medications and IVs Current Medications Medications (Trade) Dose Ordered Sig/Lelia Route Start Time Stop Time Status Last Admin (NS Flush) 2 ml UNSCH PRN IV FLUSH 08/03/17 12:45 (NS Flush) 2 ml BID IV FLUSH 08/03/17 21:00 08/08/17 09:00 (Aspirin Chew) 162 mg DAILY CHEW 08/04/17 09:00 08/08/17 09:00 (Lipitor) 20 mg HS PO 08/03/17 21:00 08/07/17 22:03 (Vitamin D3) 1,000 units DAILY PO 08/04/17 09:00 08/08/17 09:00 (Microzide) 12.5 mg DAILY PO 08/04/17 09:00 Future Hold (Diovan) 40 mg DAILY PO 08/04/17 09:00 Future Hold (Vitamin E) 400 units DAILY PO 08/04/17 09:00 08/08/17 09:00 (Pill Splitter) 1 ea UNSCH PRN OTHER 08/03/17 13:00 (Tylenol) 650 mg Q6H PRN PO 08/03/17 13:15 08/03/17 14:06 (Zofran Inj) 4 mg Q6H PRN IV PUSH 08/03/17 13:15 (Protonix) 40 mg DAILY PO 08/04/17 09:00 08/08/17 09:00 (Missy-Colace) 1 tab BID PO 08/03/17 21:00 08/08/17 09:00 (Milk Of Magnesia Liq) 30 ml Q12H PRN PO 08/03/17 15:45 08/04/17 06:19 (Senokot) 17.2 mg Q12H PRN PO 08/03/17 15:45 08/05/17 08:30 (Dulcolax Supp) 10 mg DAILY PRN RECTAL 08/03/17 15:45 (Lactulose Liq) 30 ml DAILY PRN PO 08/03/17 15:45 08/05/17 08:30 (Morphine Inj) 2 mg Q3HR PRN IV PUSH 08/04/17 01:30 08/05/17 03:48 ([place] 5-325 Mg) 1 tab Q4H PRN PO 08/04/17 01:30 08/08/17 13:00 ([place] 10-325 Mg) 1 tab Q4H PRN PO 08/04/17 01:30 08/04/17 02:24 (Toprol Xl) 25 mg BID PO 08/04/17 21:00 08/08/17 09:00 (Flomax) 0.4 mg Q12HR PO 08/04/17 10:00 08/08/17 09:00 Heparin Sodium/ Dextrose 250 ml @ 10 mls/hr TITRATE PRN IV 08/04/17 11:30 Future hold 08/06/17 07:45 Cefazolin Sodium/ Dextrose 50 ml @ 100 mls/hr Q8H IV 08/04/17 16:00 08/08/17 16:00 (Fleet Mineral Oil Enema) 118 ml DAILY PRN RECTAL 08/05/17 08:15 08/05/17 11:40 Pharmacy Profile Note 0 ml @ 0 mls/hr UNSCH OTHER 08/08/17 09:30 Gentamicin Sulfate 92 mg/ Sodium Chloride 102.3 ml @ 200 mls/hr Q8H IV 08/08/17 14:00 08/08/17 14:00 Miscellaneous Information SPECIFIC LAB TO BE DRAWN:GENTAMICIN TROUGH DATE TO... ONCE ONCE .XX 08/09/17 05:30 08/09/17 05:31 (Aman Gonzalez MD R1) Urinary Catheter: No (Aman Gonzalez MD R1) Vascular Central Line Catheter: No (Aman Gonzalez MD R1) A/P Assessment and Plan 76-year-old male presented on 08/03/17 with right lower quadrant/right groin pain, met sepsis criteria with unknown source, blood cultures positive for MSSA 08/03-08/07, being treated with Ancef IV with addition of Gentamicin on 08/07. Also with new onset atrial fibrillation with RVR that is controlled and acute urinary retention which has resolved. Infectious disease, neurosurgery, urology , and cardiology are on board. PT indicates pt to discharge home with no PT. Discussed with Drs. Rojo and Eko Discharge Planning Pending resolution of fevers, leukocytosis, good heart rate control, anticoagulated appropriately, resolution of acute urinary retention, and recommendations from neurosurgery, urology, cardiology, and infectious disease. (Aman Gonzalez MD R1) Attending Attestation Patient seen and examined. Case reviewed and discussed Agree with plan of care as discussed with me and documented in the resident note. (Ana Rojo MD) Problem List: (1) Sepsis ICD Codes: A41.9 - Sepsis, unspecified organism Status: Acute Plan: Initially meeting sepsis criteria with leukocytosis and fevers, positive blood cultures with MSSA. Lactate normal. Elevated pulse, found to be in atrial fibrillation with RVR. Maintaining normal blood pressures, otherwise hemodynamically stable. Now afebrile >48hours. On admit, UA that is bloody but no nitrites or leukocyte esterase. MRI of lumbar and sacral spine not showing any epidural abscess from Hx of corticosteroid injections in lower back, or sign of osteomyelitis/infected metal hardware from spinal fusion >10years ago. CT abdomen showing no source of infection. Has abrasions on knees that could be source of possible entrance. No history of IV drug use. - UA and CXR neg - CRP 13.00 - Continue Ancef 2 g IV started 08/04/17 - Start Gentamicin IV 08/08 - Blood cx: trending until free of infection -- positive MSSA 08/03-08/07; next cx 48 hours after start of Gentamicin per ID - ID consulted, Dr Silver following, appreciate recs - 2D ECHO with mild tricuspid regurgitation, mild to moderate mitral valve regurgitation, and moderate left atrial dilation, no mention of vegetations - Dr Arrieta, Cardiology, performed ORTIZ 08/07 - with aortic valve thrombus vs vegetation - Xray: Left knee w/no s/s of infection; Right knee with small effusion and tricompartmental osteoarthritis - Orthopedic consult negative for sign of osteomyelitis (2) Urinary retention ICD Codes: R33.9 - Retention of urine, unspecified Status: Acute Plan: Resolved. Acute urinary retention with gross hematuria. Concern for moderate to severe lumbar stenosis, possible source of urinary retention. Also with enlarged prostate noted on MRI. No epidural abscess noted on MRI of back. Lower extremity weakness subjectively, but strength is normal on neuro exam. Normal rectal tone on examination. Enlarged prostate not appreciated on exam but is noted on imaging. Spoke with neurosurgeon on 08/04 Dr. Rubin on the phone and stat consult order was placed. - Consult urology - started on Flomax 0.4 mg PO every 12 hours - Straight catheter as needed - no requirement for cath overnight - PSA within normal limits at 1.61 - Urinary retention appears to have resolved 08/06 following a 1-2 large bowel movements, the first the pt has had in 4-5 days - Neurosurgery consulted and do not plan to intervene at this time (3) Constipation ICD Codes: K59.00 - Constipation, unspecified Status: Chronic Plan: -Patient reports having problems with chronic constipation but appears to have resolved with 3 BM since 08/05 and 1 this morning -Currently on severe constipation regimen with additional fleets enema with mineral oil PRN -Missy-colace 1 tab BID (4) Atrial fibrillation with RVR ICD Codes: I48.91 - Unspecified atrial fibrillation Plan: Stable. Patient initially presented with regular rate and rhythm but developed new onset A. fib with RVR. Received 10 mg IV diltiazem bolus and was transitioned to diltiazem drip which was discontinued after resolution of RVR but remains in A. fib. Troponins elevated but flat on trend. TSH WNL at 0.876. BNP mildly elevated. Nursing reports today that pt's rate jumps quickly to 120 when pt is ambulating. - 2D ECHO shows moderate after atrial enlargement - Cardiology consult for new onset A. fib - Per cardiology, on metoprolol XR 25 mg twice a day - Started on heparin drip (in case of procedure), likely bridge to a NOAC when stable - Dr Arrieta performed ORTIZ 08/07 at request of ID to r/o endocarditis -- vegetation vs thrombus on aortic valve (5) Right lower quadrant abdominal pain ICD Codes: R10.31 - Right lower quadrant pain Status: Acute Plan: Resolved. Pt with lw/o abdominal pain today. Differential diagnoses includes resolved right kidney stone, early colitis, septic right hip joint, muscle spasm with radiculopathy, lumbar stenosis with radiculopathy, spinal abscess. Urine positive for occult blood and 30 RBCs. Renal US essentially normal except for small upper pole cyst also seen on CT abdomen. No hydronephrosis, stone, or mass on either CT or US. Mild adynamic ileus on CT scan. Last bowel movement was on Wednesday 08/01 and was normal but larger than usual. MRI of lower back shows moderate to severe lumbar stenosis. -[place] for pain, Morphine for breakthrough pain. -Constipation regimen -Neurosurgery consulted for moderate to severe lumbar stenosis and neurological findings, and would plan to address spinal stenosis as outpt after bacteremia cleared and Afib stable -Urine filter for possible stone -Urology on board for urological symptoms - Flomax as above. (6) Thrombocytopenia ICD Codes: D69.6 - Thrombocytopenia, unspecified Status: Acute Plan: Resolved. Platelets 120 on admission with normal H/H, dropped to 87 with heparin drip, 119 on 08/07 and wnl at 154 on 08/08. - HIIT gera negative for antibodies - Monitor platelets w/daily CBC, patient is on heparin IV - Monitor for spontaneous bleeding (7) Hyperbilirubinemia ICD Codes: E80.6 - Other disorders of bilirubin metabolism Status: Acute Plan: Total bilirubin of 2.3 with breakdown as follows: Direct bilirubin 0.5, indirect bilirubin 1.8. May be Gilbert versus acute hemolysis. Also with blood in urine. - Hepatitis profile negative for Hep A, B and C - LDH within normal limits and haptoglobin elevated (8) Chronic Medical Problems Status: Chronic Plan: Hypertension: Holding valsartan and hydrochlorothiazide, BP wnl since last night -Atorvastatin 20mg qhs PO for vascular odilon -Metoprolol 25mg BID as above (9) FEN/DVT PPX/GI PPX/Nursing Orders Plan: Fluids: holding IVF Electrolytes: Will monitor and replace as needed Nutrition: Heart healthy diet DVT Prophylaxis: Lovenox 40mg daily GI Prophylaxis: Protonix 40mg PO daily Constipation prophylaxis: Pericolace 1 tab PO BID scheduled, milk of magnesia PRN, lactulose, Fleet's enema PRN Medications Tylenol 650 mg by mouth every 4 hours when necessary pain 1-10 or temperature greater than 100.4F Zofran 4 mg IV push every 6 hours when necessary nausea vomiting [place] 325-5 mg 1 tab by mouth every 6 hours when necessary pain 5-7 [place] 325-10 mg 1 tab by mouth every 6 hours when necessary pain 8-10 Morphine 2 mg IV push every 3 hours when necessary breakthrough pain -Vitals Q4h -Monitor I's and O's -court recording monitor with telemetry with continuous vital signs -Activity OOB with assistance -PT to assist with ambulation and strengthening exercises -Case management consult to assist with discharge disposition (Aman Gonzalez MD R1) Problem Qualifiers (1) Sepsis: Qualified Codes: A41.01 - Sepsis due to methicillin susceptible Staphylococcus aureus Aman Gonzalez MD R1 Aug 08, 2017 13:11 Ana Rojo MD Aug 13, 2017 16:24
[2017-08-08] MEDS: SODIUM CHLORIDE IV SCH ×4 (14:00→21:22)
[2017-08-08] MEDS: GENTAMICIN IV SCH ×4 (14:00→21:22)
[2017-08-08 14:30] LABS: APTT (PATIENT) 39.2 SEC (24.3-30.1)
[2017-08-08] MEDS: ATORVASTATIN 20 MG TAB PO SCH (21:21)
[2017-08-08 21:34] LABS: APTT (PATIENT) 43.6 SEC (24.3-30.1)
[2017-08-09] VITALS (23 sets, daily range): BP systolic 100–130; BP diastolic 63–89; PULSE 74–109; RESP 18–20; TEMP 97.9–98.7; O2SAT 95–98
[2017-08-09] MEDS: ceFAZolin 2 GM PREMIX 50 ML IV SCH ×3 (00:28→16:07)
[2017-08-09 03:51] LABS: APTT (PATIENT) 44.6 SEC (24.3-30.1)
[2017-08-09 04:04] LABS: BICARBONATE 26.1 MEQ/L (21.0-32.0); POTASSIUM 3.6 MEQ/L (3.5-5.1)
[2017-08-09] MEDS ORDERED: PHARMACY ORDERED LAB ONE ×2 (05:30→15:00)
[2017-08-09] MEDS: SODIUM CHLORIDE IV SCH ×6 (05:59→22:33)
[2017-08-09] MEDS: GENTAMICIN IV SCH ×6 (05:59→22:33)
--- NOTE | 2017-08-09 07:42 | HHI.FPPN ---
Subjective Remarks Patient is feeling well this morning and denies fever, chills, or nausea. His only concern is that anytime he gets up to go to the bathroom, his heart rate goes up to the 140's - 150's. He is completely asymptomatic during these times. (Imelda Zeng MD R2) Objective Vitals Vital Signs Date Time Temp Pulse Resp B/P (MAP) Pulse Ox O2 Delivery O2 Flow Rate FiO2 08/09/17 04:00 83 08/09/17 04:00 97.9 80 18 107/63 (78) 98 08/09/17 03:00 86 08/09/17 02:00 78 08/09/17 01:00 84 08/09/17 00:00 98.4 86 20 112/72 (85) 97 08/09/17 00:00 74 08/08/17 23:00 90 08/08/17 22:00 98 08/08/17 21:00 122 08/08/17 20:00 99.1 115 18 126/82 (97) 97 08/08/17 20:00 89 08/08/17 19:00 112 08/08/17 18:19 101 08/08/17 17:00 97 08/08/17 16:00 102 08/08/17 15:00 98.6 84 18 138/72 (94) 95 08/08/17 15:00 102 08/08/17 14:00 102 I/O 08/08/17 08/08/17 08/08/17 08/09/17 08/09/17 08/09/17 07:00 15:00 23:00 07:00 15:00 23:00 Intake Total 403 ml 420 ml 408 ml Output Total 700 ml 1000 ml 1350 ml Balance -297 ml -580 ml -942 ml Intake Oral 240 ml 420 ml 240 ml IV Total 163 ml 168 ml Output Urine Total 700 ml 1000 ml 1350 ml # Bowel Movements 0 0 0 (Imelda Zeng MD R2) Result Diagram: 08/08/17 0520 08/09/17 0305 Objective Remarks GENERAL: WDWN elderly male patient laying in bed in no acute distress SKIN: Has abrasions on bilateral knees. No rashes noted. HEENT: Normocephalic, atraumatic, no nasal discharge. No oral sores. NECK: Supple, no meningeal signs, no lymphadenopathy. Trachea midline. CARDIOVASCULAR: Regular rate and irregular rhythm without murmur, gallop, or rub. Peripheral pulses and capillary refill wnl. RESPIRATORY: Clear to auscultation in all lung rojas. Breath sounds equal bilaterally. No wheezes, rales, or rhonchi. No increased WOB. GASTROINTESTINAL: No tenderness to palpation of the abdomen. Normal BS with no guarding or rigidity. MSK: Normal range of motion; can ambulate w/o pain. Moves all extremities spontaneously with good coordination. Neuro: Awake, alert, PERRLA, EOMI, CN intact, normal strength and sensation distally. Procedures Transesophageal ECHO - 08/07/17 (Imelda Zeng MD R2) A/P Assessment and Plan 76-year-old male presented on 08/03/17 with right lower quadrant/right groin pain, met sepsis criteria with unknown source, blood cultures positive for MSSA 08/03-08/07, being treated with Ancef IV with addition of Gentamicin on 08/07. Also with new onset atrial fibrillation with RVR that is controlled and acute urinary retention which has resolved. Infectious disease, neurosurgery, urology , and cardiology are on board. PT indicates pt to discharge home with no PT. Seen and examined with Dr. Gonzalez. Discussed with Dr. Rojo Discharge Planning Pending resolution of bacteremia, good heart rate control, anticoagulated appropriately, and recommendations from cardiology, and infectious disease. (Imelda Zeng MD R2) Attending Attestation Patient seen and examined. Case reviewed and discussed Agree with plan of care as discussed with me and documented in the resident note. (Ana Rojo MD) Problem List: (1) Sepsis ICD Codes: A41.9 - Sepsis, unspecified organism Status: Acute Plan: Initially meeting sepsis criteria with leukocytosis and fevers, positive blood cultures with MSSA. Lactate normal. Elevated pulse, found to be in atrial fibrillation with RVR. Maintaining normal blood pressures, otherwise hemodynamically stable. Now afebrile >48hours. On admit, UA that is bloody but no nitrites or leukocyte esterase. MRI of lumbar and sacral spine not showing any epidural abscess from Hx of corticosteroid injections in lower back, or sign of osteomyelitis/infected metal hardware from spinal fusion >10years ago. CT abdomen showing no source of infection. Has abrasions on knees that could be source of possible entrance. No history of IV drug use. - UA and CXR neg - Continue Ancef 2 g IV started 08/04/17 -Continue Gentamicin IV dye 08/08 - Blood cx: trending until free of infection -- positive MSSA 08/03-08/07; next cx 48 hours after start of Gentamicin per ID (08/10/17) - ID on board, Dr Silver following, appreciate recs - 2D ECHO with mild tricuspid regurgitation, mild to moderate mitral valve regurgitation, and moderate left atrial dilation, no mention of vegetations - Dr Arrieta, Cardiology, performed ORTIZ 08/07 - with aortic valve thrombus vs vegetation - Xray: Left knee w/no s/s of infection; Right knee with small effusion and tricompartmental osteoarthritis (2) Urinary retention ICD Codes: R33.9 - Retention of urine, unspecified Status: Acute Plan: Resolved. Acute urinary retention with gross hematuria. Concern for moderate to severe lumbar stenosis, possible source of urinary retention. Also with enlarged prostate noted on MRI. No epidural abscess noted on MRI of back. Lower extremity weakness subjectively, but strength is normal on neuro exam. Normal rectal tone on examination. Enlarged prostate not appreciated on exam but is noted on imaging. - Per urology - started on Flomax 0.4 mg PO every 12 hours - Straight catheter as needed - no requirement for cath overnight - PSA within normal limits at 1.61 - Urinary retention appears to have resolved 08/06 following 1-2 large bowel movements (3) Constipation ICD Codes: K59.00 - Constipation, unspecified Status: Chronic Plan: -Patient reports having problems with chronic constipation but appears to have resolved with 3 BM since 08/05 and 1 on 08/08 -Currently on severe constipation regimen with additional fleets enema with mineral oil PRN -Missy-colace 1 tab BID scheduled (4) Atrial fibrillation with RVR ICD Codes: I48.91 - Unspecified atrial fibrillation Plan: Stable. Patient initially presented with regular rate and rhythm but developed new onset A. fib with RVR. Received 10 mg IV diltiazem bolus and was transitioned to diltiazem drip which was discontinued after resolution of RVR but remains in A. fib. Troponins elevated but flat on trend. TSH WNL at 0.876. BNP mildly elevated. Nursing reports today that pt's rate jumps quickly to 120 when pt is ambulating. - 2D ECHO shows moderate after atrial enlargement - Cardiology was consulted for new onset A. fib -Metoprolol tatrate 25 mg by mouth every 8 hours - Started on heparin drip (in case of procedure), likely bridge to a NOAC when stable - Dr Arrieta performed ORTIZ 08/07 at request of ID to r/o endocarditis -- vegetation vs thrombus on aortic valve (5) Chronic Medical Problems Status: Chronic Plan: Hypertension: Holding valsartan and hydrochlorothiazide, normotensive -Atorvastatin 20mg qhs PO for vascular odilon -Metoprolol 25mg Q8h as above (6) FEN/DVT PPX/GI PPX/Nursing Orders Plan: Fluids: holding IVF Electrolytes: Will monitor and replace as needed Nutrition: Heart healthy diet DVT Prophylaxis: Lovenox 40mg daily GI Prophylaxis: Protonix 40mg PO daily Constipation prophylaxis: Pericolace 1 tab PO BID scheduled, milk of magnesia PRN, lactulose, Fleet's enema PRN Medications Tylenol 650 mg by mouth every 4 hours when necessary pain 1-10 or temperature greater than 100.4F Zofran 4 mg IV push every 6 hours when necessary nausea vomiting [place] 325-5 mg 1 tab by mouth every 6 hours when necessary pain 5-7 [place] 325-10 mg 1 tab by mouth every 6 hours when necessary pain 8-10 Morphine 2 mg IV push every 3 hours when necessary breakthrough pain -Vitals Q4h -Monitor I's and O's -pad extractor tender with telemetry with continuous vital signs -Activity OOB with assistance -PT to assist with ambulation and strengthening exercises -Case management consult to assist with discharge disposition (Imelda Zeng MD R2) Problem Qualifiers (1) Sepsis: Qualified Codes: A41.01 - Sepsis due to methicillin susceptible Staphylococcus aureus Imelda Zeng MD R2 Aug 09, 2017 07:42 Ana Rojo MD Aug 13, 2017 16:23
[2017-08-09] MEDS: TAMSULOSIN HCL 0.4 MG CAP PO SCH ×2 (08:44→20:54)
[2017-08-09] MEDS: CHOLECALCIFEROL (VIT D3) 1000 UNIT TAB PO SCH (08:44)
[2017-08-09] MEDS: ASPIRIN 81 MG CHEW TAB CHEW SCH (08:44)
[2017-08-09] MEDS: PANTOPRAZOLE SOD 40 MG DELAYED RELEASE TAB PO SCH (08:44)
[2017-08-09] MEDS: DOCUSATE SODIUM 50 MG/SENNA 8.6 MG TAB PO SCH ×2 (08:45→20:54)
[2017-08-09] MEDS: VITAMIN E 400 UNIT CAP PO SCH (08:45)
[2017-08-09] MEDS: SODIUM CHLORIDE 0.9% FLUSH 10 ML FLUSH IV FLUSH SCH ×2 (08:45→20:56)
[2017-08-09] MEDS: METOPROLOL TARTRATE 25 MG TAB PO SCH ×3 (08:49→22:33)
[2017-08-09] MEDS: HEPARIN-D5W 25,000 U/250 ML 250 ML IV PRN (12:24)
--- NOTE | 2017-08-09 14:43 | HHI.IDPN ---
Subjective Subjective Remarks is a 76 y/o CM with PMHx of Chronic back pain s/p lumbar spine surgery with hardware in place. Patient also reports seeing a pain medicine physician with injection into ? epidural space in February 2017. 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 Patient past medical history is also significant for h/o CAD s/p CABG. With this background he presents to the [facility] ED with chief complaint of right lower quadrant pain of 2 days duration which starts in lower back and radiates forward. He describes the pain as 10/10 pain that mata like fire. Patient states that he was remodeling in an apartment on Sunday and did well all day. He went to bed that night and woke up around 4 AM on morning with severe right back pain that radiated to his right lower quadrant/suprapubic area. Patient states that the pain was so severe that he could not move any part of his body without feeling pain. He was finally able to get himself out of bed and took 2 Aleve pills but could not do much the entire day and could barely walk. The pain initially subsided and then started to get worse again such that his friend convinced him to come to the ER. He has not been ill prior to this incident and denies any sick contacts. Patient gives history of high grade fevers 101 F prior to admission with chills. On admission, patient met sepsis criteria with WBC 17.2, HR 99 and sepsis workup initiated. Blood cultures drawn on admission positive for MSSA ID consulted for evaluation and Mment of MSSA bacteremia. On admission had CT Abd pelvis which did not help identify any acute process. Due to persistent back pain and acute retention of urine overnight patient underwent an MRI L spine and sacrum which showed spinal stenosis but no epidural abscess or discitis. Neurosurgery eval is pending. Overnight events reviewed. BCX 2nd set 08/03, 08/04, 08/05,08/07 are positive for MSSA or GP cocci likely MSSA on subsequent ones. MRI spine negative WBC scan negative. 2D ECHO negative. ORTIZ positive for endocarditis. Antibiotics Ancef IV Genta IV Lines Line sites with no e.o infection Past Medical History Lumbar spine surgery with hardware in place. Chronic back pain with h/o cortisone injections. Allergies: Coded Allergies: No Known Allergies (Unverified , 08/03/17) Objective . Vital Signs Date Time Temp Pulse Resp B/P (MAP) Pulse Ox O2 Delivery O2 Flow Rate FiO2 08/09/17 11:24 106 08/09/17 11:20 98.0 84 18 100/70 (80) 97 08/09/17 10:00 100 08/09/17 09:00 100 08/09/17 08:00 100 08/09/17 07:15 97.9 96 20 105/63 (77) 95 08/09/17 07:15 109 08/09/17 04:00 83 08/09/17 04:00 97.9 80 18 107/63 (78) 98 08/09/17 03:00 86 08/09/17 02:00 78 08/09/17 01:00 84 08/09/17 00:00 98.4 86 20 112/72 (85) 97 08/09/17 00:00 74 08/08/17 23:00 90 08/08/17 22:00 98 08/08/17 21:00 122 08/08/17 20:00 99.1 115 18 126/82 (97) 97 08/08/17 20:00 89 08/08/17 19:00 112 08/08/17 18:19 101 08/08/17 17:00 97 08/08/17 16:00 102 08/08/17 15:00 98.6 84 18 138/72 (94) 95 08/08/17 15:00 102 . Laboratory Tests Test 08/08/17 05:20 White Blood Count 7.4 TH/MM3 Red Blood Count 3.57 MIL/MM3 Hemoglobin 10.8 GM/DL Hematocrit 31.3 % Mean Corpuscular Volume 87.7 FL Mean Corpuscular Hemoglobin 30.2 PG Mean Corpuscular Hemoglobin Concent 34.4 % Red Cell Distribution Width 14.3 % Platelet Count 154 TH/MM3 Mean Platelet Volume 8.5 FL Neutrophils (%) (Auto) 69.1 % Lymphocytes (%) (Auto) 17.3 % Monocytes (%) (Auto) 10.4 % Eosinophils (%) (Auto) 2.6 % Basophils (%) (Auto) 0.6 % Neutrophils # (Auto) 5.1 TH/MM3 Lymphocytes # (Auto) 1.3 TH/MM3 Monocytes # (Auto) 0.8 TH/MM3 Eosinophils # (Auto) 0.2 TH/MM3 Basophils # (Auto) 0.0 TH/MM3 CBC Comment DIFF FINAL Differential Comment Laboratory Tests Test 08/08/17 05:20 08/09/17 03:05 Blood Urea Nitrogen 13 MG/DL 11 MG/DL Creatinine 0.80 MG/DL 0.76 MG/DL Random Glucose 98 MG/DL 99 MG/DL Calcium Level 7.8 MG/DL 8.0 MG/DL Sodium Level 139 MEQ/L 139 MEQ/L Potassium Level 3.5 MEQ/L 3.6 MEQ/L Chloride Level 106 MEQ/L 104 MEQ/L Carbon Dioxide Level 25.8 MEQ/L 26.1 MEQ/L Anion Gap 7 MEQ/L 9 MEQ/L Estimat Glomerular Filtration Rate 94 ML/MIN 99 ML/MIN Microbiology Date/Time Source Procedure Growth Status 08/07/17 05:34 Blood Peripheral Aerobic Blood Culture - Final Staphylococcus Aureus Resulted 08/07/17 05:34 Blood Peripheral Anaerobic Blood Culture - Preliminary NO GROWTH IN 2 DAYS Resulted 08/07/17 05:27 Blood Peripheral Aerobic Blood Culture - Preliminary NO GROWTH IN 2 DAYS Resulted 08/07/17 05:27 Blood Peripheral Anaerobic Blood Culture - Preliminary NO GROWTH IN 2 DAYS Resulted Imaging Last Impressions Tumor Localization 08/05/17 0000 Signed Impressions: Service Date/Time: Saturday, August 05, 2017 13:19 - CONCLUSION: Negative for occult inflammatory process. Keyur Miguel MD FACR Sacrum/Coccyx MRI 08/04/17 0832 Signed Impressions: Service Date/Time: Friday, August 04, 2017 11:18 - CONCLUSION: 1. Prostatomegaly with BPH. 2. Abnormal appearance of the right peripheral zone. Correlation with PSA is suggested. 3. Normal sacrum and coccyx. 4. No evidence of focal bony lesions or local regional lymphadenopathy. Haroon Strauss MD Lumbar Spine MRI 08/04/17 0832 Signed Impressions: Service Date/Time: Friday, August 04, 2017 11:18 - CONCLUSION: 1. Moderate to severe central spinal stenosis at L1-2, L2-3 and L4-5 as described. 2. Postsurgical changes at L3 and L4 following laminectomy and fusion. 3. Mild inflammatory arthropathy of the right L1-2 facet joint. 4. Mild to moderate degenerative disc disease. 5. No evidence of acute disc herniation or abnormal bony enhancement. Haroon Strauss MD Chest X-Ray 08/04/17 0000 Signed Impressions: Service Date/Time: Friday, August 04, 2017 15:42 - CONCLUSION: No acute cardiopulmonary process. Jorje Gallegos MD Abdomen/Pelvis CT 08/03/17 0955 Signed Impressions: Service Date/Time: Thursday, August 03, 2017 11:14 - CONCLUSION: 1. No drainable fluid collection/abscess status post appendectomy. 2. Marginally prominent jejunal loops consistent with mild adynamic ileus. 3. Ancillary findings, as above. Javi Renee MD Abdomen Ultrasound 08/03/17 0000 Signed Impressions: Service Date/Time: Thursday, August 03, 2017 13:35 - CONCLUSION: Unremarkable. Etiology for abdominal pain is not evident. Keyur Miguel MD FACR Physical Exam GENERAL: This is a well-nourished, well-developed patient, in no apparent distress. SKIN: No rashes, ecchymoses or lesions. Cool and dry. HEAD: Atraumatic. Normocephalic. No temporal or scalp tenderness. EYES: Pupils equal round and reactive. Extraocular motions intact. No scleral icterus. No injection or drainage. ENT: Nose without bleeding, purulent drainage or septal hematoma. Throat without erythema, tonsillar hypertrophy or exudate. Uvula midline. Airway patent. NECK: Trachea midline.Supple, nontender, no meningeal signs. CARDIOVASCULAR: Regular rate and rhythm without murmurs, gallops, or rubs. RESPIRATORY: Clear to auscultation. Breath sounds equal bilaterally. No wheezes , rales, or rhonchi. GASTROINTESTINAL: Abdomen soft, non-tender, nondistended. MUSCULOSKELETAL: Extremities without clubbing, cyanosis, or edema. On left knee at level of knee chronic swelling at level of bursa with no obvious signs of infection. Back: surgical scar intact. Tenderness at approx middle of surgical scar. NEUROLOGICAL: Awake and alert. Grossly non focal. Able to transfer from bed to chair on his own. Psych cooperative IV line sites with no e.o infection. Assessment & Plan Remarks Sepsis present on admission MSSA bacteremia Aortic valve endocarditis Abrasion on right toney of tibia: not large enough to explain high grade bacteremia. Acute worsening of lumbar back pain (? epidural vs early discitis) Chronic back pain (h/o spinal injections last one in February 2017) Acute retention of urine (BPH related vs Nerve compression from spinal pathology ) Spinal stenosis on imaging. Recs Continue Ancef 2 gm IV q8hrs for MSSA endocarditis. Will be easier to transition as outpatient for home infusions when bacteremia cleared and patient ready for discharge. Continue Genta IV (for synergy) Will consider Rifampin if bacteremia does not clear and the BCX from 08/07/17 are positive. Follow cultures Follow clinically. d/w reports aortic valve vegetation c/w endocarditis. Aviva Silver MD Aug 09, 2017 14:43
[2017-08-09 16:28] LABS: HEMATOCRIT 30.7 % (39.0-51.0); MEAN CELL VOLUME 87.2 FL (80.0-100.0); MEAN CORPUSCULAR HEMOGLOBIN 29.4 PG (27.0-34.0); MEAN CORPUSCULAR HGB CONC 33.7 % (32.0-36.0); PLATELET COUNT 220 TH/MM3 (150-450); RED BLOOD COUNT 3.52 MIL/MM3 (4.50-5.90); RED CELL DISTRIBUTION WIDTH 14.4 % (11.6-17.2); REVIEW FLAG FINAL; WHITE BLOOD COUNT 6.9 TH/MM3 (4.0-11.0)
[2017-08-09] MEDS: LACTULOSE SYRUP 20 GM/30 ML CUP PO PRN (16:38)
--- NOTE | 2017-08-09 17:40 | PD.CARD.PN ---
Subjective Subjective Remarks No CV complaints\ Afib not control Objective Medications Current Medications Medications (Trade) Dose Ordered Sig/Lelia Route Start Time Stop Time Status Last Admin (NS Flush) 2 ml UNSCH PRN IV FLUSH 08/03/17 12:45 (NS Flush) 2 ml BID IV FLUSH 08/03/17 21:00 08/09/17 08:45 (Aspirin Chew) 162 mg DAILY CHEW 08/04/17 09:00 08/09/17 08:44 (Lipitor) 20 mg HS PO 08/03/17 21:00 08/08/17 21:21 (Vitamin D3) 1,000 units DAILY PO 08/04/17 09:00 08/09/17 08:44 (Microzide) 12.5 mg DAILY PO 08/04/17 09:00 Future Hold (Diovan) 40 mg DAILY PO 08/04/17 09:00 Future Hold (Vitamin E) 400 units DAILY PO 08/04/17 09:00 08/09/17 08:45 (Pill Splitter) 1 ea UNSCH PRN OTHER 08/03/17 13:00 (Tylenol) 650 mg Q6H PRN PO 08/03/17 13:15 08/03/17 14:06 (Zofran Inj) 4 mg Q6H PRN IV PUSH 08/03/17 13:15 (Protonix) 40 mg DAILY PO 08/04/17 09:00 08/09/17 08:44 (Missy-Colace) 1 tab BID PO 08/03/17 21:00 08/09/17 08:45 (Milk Of Magnesia Liq) 30 ml Q12H PRN PO 08/03/17 15:45 08/04/17 06:19 (Senokot) 17.2 mg Q12H PRN PO 08/03/17 15:45 08/05/17 08:30 (Dulcolax Supp) 10 mg DAILY PRN RECTAL 08/03/17 15:45 (Lactulose Liq) 30 ml DAILY PRN PO 08/03/17 15:45 08/09/17 16:38 (Morphine Inj) 2 mg Q3HR PRN IV PUSH 08/04/17 01:30 08/05/17 03:48 ([place] 5-325 Mg) 1 tab Q4H PRN PO 08/04/17 01:30 08/08/17 13:00 ([place] 10-325 Mg) 1 tab Q4H PRN PO 08/04/17 01:30 08/04/17 02:24 (Flomax) 0.4 mg Q12HR PO 08/04/17 10:00 08/09/17 08:44 Heparin Sodium/ Dextrose 250 ml @ 10 mls/hr TITRATE PRN IV 08/04/17 11:30 Future hold 08/09/17 12:24 Cefazolin Sodium/ Dextrose 50 ml @ 100 mls/hr Q8H IV 08/04/17 16:00 08/09/17 16:07 (Fleet Mineral Oil Enema) 118 ml DAILY PRN RECTAL 08/05/17 08:15 08/05/17 11:40 Pharmacy Profile Note 0 ml @ 0 mls/hr UNSCH OTHER 08/08/17 09:30 Gentamicin Sulfate 92 mg/ Sodium Chloride 102.3 ml @ 200 mls/hr Q8H IV 08/08/17 14:00 08/09/17 14:13 (Lopressor) 25 mg Q8HR PO 08/09/17 08:00 08/09/17 14:13 Vital Signs / I&O Vital Signs Date Time Temp Pulse Resp B/P (MAP) Pulse Ox O2 Delivery O2 Flow Rate FiO2 08/09/17 11:24 106 08/09/17 11:20 98.0 84 18 100/70 (80) 97 08/09/17 10:00 100 08/09/17 09:00 100 08/09/17 08:00 100 08/09/17 07:15 97.9 96 20 105/63 (77) 95 08/09/17 07:15 109 08/09/17 04:00 83 08/09/17 04:00 97.9 80 18 107/63 (78) 98 08/09/17 03:00 86 08/09/17 02:00 78 08/09/17 01:00 84 08/09/17 00:00 98.4 86 20 112/72 (85) 97 08/09/17 00:00 74 08/08/17 23:00 90 08/08/17 22:00 98 08/08/17 21:00 122 08/08/17 20:00 99.1 115 18 126/82 (97) 97 08/08/17 20:00 89 08/08/17 19:00 112 08/08/17 18:19 101 I/O 08/08/17 08/08/17 08/08/17 08/09/17 08/09/17 08/09/17 07:00 15:00 23:00 07:00 15:00 23:00 Intake Total 403 ml 420 ml 408 ml Output Total 700 ml 1000 ml 1350 ml Balance -297 ml -580 ml -942 ml Intake Oral 240 ml 420 ml 240 ml IV Total 163 ml 168 ml Output Urine Total 700 ml 1000 ml 1350 ml # Bowel Movements 0 0 0 Physical Exam GENERAL: Well-nourished, well-developed patient. SKIN: Warm and dry. HEAD: Normocephalic. EYES: No scleral icterus. No injection or drainage. NECK: Supple, trachea midline. No JVD or lymphadenopathy. CARDIOVASCULAR: Irr Irr without murmurs, gallops, or rubs. RESPIRATORY: Breath sounds equal bilaterally. No accessory muscle use. GASTROINTESTINAL: Abdomen soft, non-tender, nondistended. EXTREMITIES: No cyanosis, or edema. NEUROLOGICAL: Awake, alert, and oriented x 3. Non-focal. Laboratory Laboratory Tests Test 08/08/17 20:41 08/09/17 03:05 08/09/17 05:50 08/09/17 15:55 Activated Partial Thromboplast Time 43.6 SEC 44.6 SEC Blood Urea Nitrogen 11 MG/DL Creatinine 0.76 MG/DL Random Glucose 99 MG/DL Calcium Level 8.0 MG/DL Sodium Level 139 MEQ/L Potassium Level 3.6 MEQ/L Chloride Level 104 MEQ/L Carbon Dioxide Level 26.1 MEQ/L Anion Gap 9 MEQ/L Estimat Glomerular Filtration Rate 99 ML/MIN Gentamicin Level Trough 0.9 MCG/ML White Blood Count 6.9 TH/MM3 Red Blood Count 3.52 MIL/MM3 Hemoglobin 10.3 GM/DL Hematocrit 30.7 % Mean Corpuscular Volume 87.2 FL Mean Corpuscular Hemoglobin 29.4 PG Mean Corpuscular Hemoglobin Concent 33.7 % Red Cell Distribution Width 14.4 % Platelet Count 220 TH/MM3 Mean Platelet Volume 8.1 FL Gentamicin Level Peak 3.1 MCG/ML Imaging Last Impressions Knee X-Ray 08/07/17 1035 Signed Impressions: Service Date/Time: Monday, August 07, 2017 10:53 - CONCLUSION: 1. Prominent osseous spur at the tibial tubercle with small osseous spurs superiorly and inferiorly off the patella. 2. No fracture or effusion. No significant degenerative changes. 3. Atherosclerotic calcification of the regional vasculature Jorje Gallegos MD Tumor Localization 08/05/17 0000 Signed Impressions: Service Date/Time: Saturday, August 05, 2017 13:19 - CONCLUSION: Negative for occult inflammatory process. Keyur Miguel MD FACR Sacrum/Coccyx MRI 08/04/17 0832 Signed Impressions: Service Date/Time: Friday, August 04, 2017 11:18 - CONCLUSION: 1. Prostatomegaly with BPH. 2. Abnormal appearance of the right peripheral zone. Correlation with PSA is suggested. 3. Normal sacrum and coccyx. 4. No evidence of focal bony lesions or local regional lymphadenopathy. Haroon Strauss MD Lumbar Spine MRI 08/04/17 0832 Signed Impressions: Service Date/Time: Friday, August 04, 2017 11:18 - CONCLUSION: 1. Moderate to severe central spinal stenosis at L1-2, L2-3 and L4-5 as described. 2. Postsurgical changes at L3 and L4 following laminectomy and fusion. 3. Mild inflammatory arthropathy of the right L1-2 facet joint. 4. Mild to moderate degenerative disc disease. 5. No evidence of acute disc herniation or abnormal bony enhancement. Haroon Strauss MD Chest X-Ray 08/04/17 0000 Signed Impressions: Service Date/Time: Friday, August 04, 2017 15:42 - CONCLUSION: No acute cardiopulmonary process. Jorje Gallegos MD Abdomen/Pelvis CT 08/03/17 0955 Signed Impressions: Service Date/Time: Thursday, August 03, 2017 11:14 - CONCLUSION: 1. No drainable fluid collection/abscess status post appendectomy. 2. Marginally prominent jejunal loops consistent with mild adynamic ileus. 3. Ancillary findings, as above. Javi Renee MD Abdomen Ultrasound 08/03/17 0000 Signed Impressions: Service Date/Time: Thursday, August 03, 2017 13:35 - CONCLUSION: Unremarkable. Etiology for abdominal pain is not evident. Keyur Miguel MD FACR Assessment and Plan Problem List: (1) Atrial fibrillation with RVR ICD Codes: I48.91 - Unspecified atrial fibrillation Plan: Sepsis Aortic Valve Endocarditis Afib with RVR, low BP asymptomatic. Afib likely driven by infection. Recs: 1. Cont rate control. Cont BB and Add Digoxin 2. Cont anticoagulation 3. Antx per ID 4. IV hydration 5. Cont telemetry monitoring Will be available on a PRN basis for any questions or concerns (2) Fever ICD Codes: R50.9 - Fever, unspecified Status: Acute (3) Hematuria ICD Codes: R31.9 - Hematuria, unspecified Status: Acute (4) Leukocytosis ICD Codes: D72.829 - Elevated white blood cell count, unspecified Status: Acute (5) Right lower quadrant abdominal pain ICD Codes: R10.31 - Right lower quadrant pain Status: Acute Italo Duff MD Aug 09, 2017 17:40
[2017-08-09] MEDS ORDERED: DIGOXIN 0.5 MG/2 ML VIAL IV PUSH ONE (17:45)
[2017-08-09] MEDS: ATORVASTATIN 20 MG TAB PO SCH (20:54)
[2017-08-09] MEDS: DIGOXIN 0.5 MG/2 ML VIAL IV PUSH SCH (22:34)
[2017-08-10] VITALS (23 sets, daily range): BP systolic 97–122; BP diastolic 60–75; PULSE 64–106; RESP 18–20; TEMP 98.1–98.8; O2SAT 96–98
[2017-08-10] MEDS: ceFAZolin 2 GM PREMIX 50 ML IV SCH ×4 (01:13→23:22)
[2017-08-10] MEDS: DIGOXIN 0.5 MG/2 ML VIAL IV PUSH SCH (03:52)
[2017-08-10 05:22] LABS: HEMATOCRIT 31.4 % (39.0-51.0); MEAN CELL VOLUME 87.4 FL (80.0-100.0); MEAN CORPUSCULAR HEMOGLOBIN 30.1 PG (27.0-34.0); MEAN CORPUSCULAR HGB CONC 34.4 % (32.0-36.0); PLATELET COUNT 233 TH/MM3 (150-450); RED BLOOD COUNT 3.59 MIL/MM3 (4.50-5.90); RED CELL DISTRIBUTION WIDTH 14.1 % (11.6-17.2); REVIEW FLAG FINAL; WHITE BLOOD COUNT 7.2 TH/MM3 (4.0-11.0)
[2017-08-10] MEDS: SODIUM CHLORIDE IV SCH ×6 (05:28→20:26)
[2017-08-10] MEDS: GENTAMICIN IV SCH ×6 (05:28→20:26)
[2017-08-10 05:34] LABS: APTT (PATIENT) 55.5 SEC (24.3-30.1)
[2017-08-10 05:39] LABS: BICARBONATE 26.5 MEQ/L (21.0-32.0); POTASSIUM 3.8 MEQ/L (3.5-5.1)
[2017-08-10] MEDS: METOPROLOL TARTRATE 25 MG TAB PO SCH ×3 (06:00→20:24)
[2017-08-10] MEDS: HEPARIN-D5W 25,000 U/250 ML 250 ML IV PRN ×2 (07:04→20:35)
[2017-08-10] MEDS: SODIUM CHLORIDE 0.9% FLUSH 10 ML FLUSH IV FLUSH SCH ×2 (09:00→20:26)
[2017-08-10] MEDS: PANTOPRAZOLE SOD 40 MG DELAYED RELEASE TAB PO SCH (09:00)
[2017-08-10] MEDS: CHOLECALCIFEROL (VIT D3) 1000 UNIT TAB PO SCH (10:24)
[2017-08-10] MEDS: TAMSULOSIN HCL 0.4 MG CAP PO SCH ×2 (10:25→20:24)
[2017-08-10] MEDS: DIGOXIN 0.125 MG TAB PO SCH (10:25)
[2017-08-10] MEDS: VITAMIN E 400 UNIT CAP PO SCH (10:25)
[2017-08-10] MEDS: DOCUSATE SODIUM 50 MG/SENNA 8.6 MG TAB PO SCH ×2 (10:25→20:25)
[2017-08-10] MEDS: ASPIRIN 81 MG CHEW TAB CHEW SCH (10:25)
[2017-08-10] MEDS ORDERED: PHARMACY ORDERED LAB ONE (15:00)
--- NOTE | 2017-08-10 15:13 | HHI.FPPN ---
Subjective Remarks Mr Leeann's afib/RVR was not well controlled yesterday, especially when he would stand or ambulate as his rate would increase to [address] Meenakshi started him on Digoxin in addition to his current Metoprolol tartrate and it appears better controlled today. He is feeling fine today and asymptomatic without CP, palpitations or SOB. He is eating, stooling, voiding and has no pain. He is tolerating his medications well and ambulating the hallway. He agrees with the current plan of care and we answered his questions to his satisfaction. (Aman Gonzalez MD R1) Objective Vitals Vital Signs Date Time Temp Pulse Resp B/P (MAP) Pulse Ox O2 Delivery O2 Flow Rate FiO2 08/10/17 11:03 98.4 98 18 118/60 (79) 98 08/10/17 11:03 85 08/10/17 10:00 97 08/10/17 09:00 106 08/10/17 08:00 86 08/10/17 07:00 98.8 85 18 109/68 (82) 98 08/10/17 07:00 85 08/10/17 06:00 76 08/10/17 05:00 67 08/10/17 04:00 98.4 64 18 97/60 (72) 98 08/10/17 04:00 72 08/10/17 03:00 74 08/10/17 02:00 76 08/10/17 01:00 76 08/10/17 00:00 98.8 77 18 122/75 (91) 98 08/10/17 00:00 78 08/09/17 23:00 78 08/09/17 22:00 92 08/09/17 21:00 88 08/09/17 20:00 88 08/09/17 20:00 98.7 96 18 121/89 (100) 98 08/09/17 19:00 96 08/09/17 18:00 84 08/09/17 17:00 86 08/09/17 16:00 82 08/09/17 15:00 98.7 88 20 130/82 (98) 98 08/09/17 15:00 109 I/O 08/09/17 08/09/17 08/09/17 08/10/17 08/10/17 08/10/17 07:00 15:00 23:00 07:00 15:00 23:00 Intake Total 408 ml 398 ml 634 ml Output Total 1350 ml 2175 ml Balance -942 ml 398 ml -1541 ml Intake Oral 240 ml 240 ml IV Total 168 ml 398 ml 394 ml Output Urine Total 1350 ml 2175 ml # Voids 5 # Bowel Movements 0 (Aman Gonzalez MD R1) Result Diagram: 08/10/1745708/10/17457 Objective Remarks GENERAL: WDWN elderly male patient laying in bed in no acute distress SKIN: Has abrasions on bilateral knees. No rashes noted. HEENT: Normocephalic, atraumatic, no nasal discharge. No oral sores. NECK: Supple, no meningeal signs, no lymphadenopathy. Trachea midline. CARDIOVASCULAR: Regular rate and irregular rhythm without murmur, gallop, or rub. Peripheral pulses and capillary refill wnl. RESPIRATORY: Clear to auscultation in all lung rojas. Breath sounds equal bilaterally. No wheezes, rales, or rhonchi. No increased WOB. GASTROINTESTINAL: No tenderness to palpation of the abdomen. Normal BS with no guarding or rigidity. MSK: Normal range of motion; can ambulate w/o pain. Moves all extremities spontaneously with good coordination. Neuro: Awake, alert, PERRLA, EOMI, CN intact, normal strength and sensation distally. Procedures Transesophageal ECHO - 08/07/17 Medications and IVs Current Medications Medications (Trade) Dose Ordered Sig/Lelia Route Start Time Stop Time Status Last Admin (NS Flush) 2 ml UNSCH PRN IV FLUSH 08/03/17 12:45 (NS Flush) 2 ml BID IV FLUSH 08/03/17 21:00 08/10/17 09:00 (Aspirin Chew) 162 mg DAILY CHEW 08/04/17 09:00 08/10/17 10:25 (Lipitor) 20 mg HS PO 08/03/17 21:00 08/09/17 20:54 (Vitamin D3) 1,000 units DAILY PO 08/04/17 09:00 08/10/17 10:24 (Microzide) 12.5 mg DAILY PO 08/04/17 09:00 Future Hold (Diovan) 40 mg DAILY PO 08/04/17 09:00 Future Hold (Vitamin E) 400 units DAILY PO 08/04/17 09:00 08/10/17 10:25 (Pill Splitter) 1 ea UNSCH PRN OTHER 08/03/17 13:00 (Tylenol) 650 mg Q6H PRN PO 08/03/17 13:15 08/03/17 14:06 (Zofran Inj) 4 mg Q6H PRN IV PUSH 08/03/17 13:15 (Protonix) 40 mg DAILY PO 08/04/17 09:00 08/10/17 09:00 (Missy-Colace) 1 tab BID PO 08/03/17 21:00 08/10/17 10:25 (Milk Of Magnesia Liq) 30 ml Q12H PRN PO 08/03/17 15:45 08/04/17 06:19 (Senokot) 17.2 mg Q12H PRN PO 08/03/17 15:45 08/05/17 08:30 (Dulcolax Supp) 10 mg DAILY PRN RECTAL 08/03/17 15:45 (Lactulose Liq) 30 ml DAILY PRN PO 08/03/17 15:45 08/09/17 16:38 (Morphine Inj) 2 mg Q3HR PRN IV PUSH 08/04/17 01:30 08/05/17 03:48 ([place] 5-325 Mg) 1 tab Q4H PRN PO 08/04/17 01:30 08/08/17 13:00 ([place] 10-325 Mg) 1 tab Q4H PRN PO 08/04/17 01:30 08/04/17 02:24 (Flomax) 0.4 mg Q12HR PO 08/04/17 10:00 08/10/17 10:25 Heparin Sodium/ Dextrose 250 ml @ 10 mls/hr TITRATE PRN IV 08/04/17 11:30 Future hold 08/10/17 07:04 Cefazolin Sodium/ Dextrose 50 ml @ 100 mls/hr Q8H IV 08/04/17 16:00 08/10/17 10:25 (Fleet Mineral Oil Enema) 118 ml DAILY PRN RECTAL 08/05/17 08:15 08/05/17 11:40 Pharmacy Profile Note 0 ml @ 0 mls/hr UNSCH OTHER 08/08/17 09:30 Gentamicin Sulfate 92 mg/ Sodium Chloride 102.3 ml @ 200 mls/hr Q8H IV 08/08/17 14:00 08/10/17 14:00 (Lopressor) 25 mg Q8HR PO 08/09/17 08:00 08/10/17 14:00 (Lanoxin) 0.125 mg DAILY PO 08/10/17 09:00 08/10/17 10:25 Miscellaneous Information SPECIFIC LAB TO BE DRAWN:GENTAMI... 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 New onset atrial fibrillation with RVR likely 2/2 bacteremia that is being managed by Dr Arrieta, Cardiology; acute urinary retention which has resolved. Infectious disease, neurosurgery, urology, and cardiology have been consulted. PT indicates pt to discharge home with no PT. Per ID, blood cx must be negative for 5 days before pt can be discharged with IV antibiotics to be administered as an outpatient. Pt is stable and improving. Seen and examined with Dr. Moore. Discussed with Dr. Rojo Discharge Planning Pending resolution of bacteremia, good heart rate control, anticoagulated appropriately, and recommendations from cardiology, and infectious disease. (Aman Gonzalez MD R1) Problem List: (1) Sepsis ICD Codes: A41.9 - Sepsis, unspecified organism Status: Acute Plan: Initially meeting sepsis criteria with leukocytosis and fevers, positive blood cultures with MSSA. Lactate normal. Elevated pulse, found to be in atrial fibrillation with RVR. Maintaining normal blood pressures, otherwise hemodynamically stable. Now afebrile >48hours. On admit, UA that is bloody but no nitrites or leukocyte esterase. MRI of lumbar and sacral spine not showing any epidural abscess from Hx of corticosteroid injections in lower back, or sign of osteomyelitis/infected metal hardware from spinal fusion >10years ago. CT abdomen showing no source of infection. Has abrasions on knees that could be source of possible entrance. No history of IV drug use. - UA and CXR neg - Continue Ancef 2 g IV started 08/04/17 - Continue Gentamicin IV dye 08/08 - Gentamicin peak/trough as per ID - WBC 7.2 and has been wnl since 08/04 @ 11.4 - Blood cx: trending until free of infection -- positive MSSA 08/03-08/07; cx pending - Per Dr Silver: require 5 days of infection-free cx before discharge with outpatient IV antibiotics - ID, Dr Silver following, appreciate recs - 2D ECHO with mild tricuspid regurgitation, mild to moderate mitral valve regurgitation, and moderate left atrial dilation, no mention of vegetations - Dr Arrieta, Cardiology, performed ORTIZ 08/07 - with aortic valve thrombus vs vegetation - Xray: Left knee w/no s/s of infection; Right knee with small effusion and tricompartmental osteoarthritis (2) Urinary retention ICD Codes: R33.9 - Retention of urine, unspecified Status: Acute Plan: Resolved. Acute urinary retention with gross hematuria. Concern for moderate to severe lumbar stenosis, possible source of urinary retention. Also with enlarged prostate noted on MRI. No epidural abscess noted on MRI of back. Lower extremity weakness subjectively, but strength is normal on neuro exam. Normal rectal tone on examination. Enlarged prostate not appreciated on exam but is noted on imaging. - Per urology - started on Flomax 0.4 mg PO every 12 hours - Straight catheter as needed - no requirement for cath overnight - PSA within normal limits at 1.61 - Urinary retention appears to have resolved 08/06 following 1-2 large bowel movements (3) Constipation ICD Codes: K59.00 - Constipation, unspecified Status: Chronic Plan: -Patient reports having problems with chronic constipation but appears to have resolved multiple BM since 08/05 and one this morning -Currently on severe constipation regimen with additional fleets enema with mineral oil PRN -Missy-colace 1 tab BID scheduled (4) Atrial fibrillation with RVR ICD Codes: I48.91 - Unspecified atrial fibrillation Plan: Stable. Patient initially presented with regular rate and rhythm but developed new onset A. fib with RVR. Received 10 mg IV diltiazem bolus and was transitioned to diltiazem drip which was discontinued after resolution of RVR but remains in A. fib. Troponins elevated but flat on trend. TSH WNL at 0.876. BNP mildly elevated. Nursing reports today that pt's rate jumped to 140-150 when OOB and ambulating yesterday. Dr Arrieta started Digoxin yesterday - 2D ECHO shows moderate after atrial enlargement - Cardiology was consulted for new onset A. fib - Metoprolol tatrate 25 mg q8h - Started on heparin drip (in case of procedure), likely bridge to a NOAC when stable - Dr Arrieta performed ORTIZ 08/07 at request of ID to r/o endocarditis -- vegetation vs thrombus on aortic valve - Digoxin 0.125mg daily after loading doses on 08/09: 0.5mg @1745, 0.25mg @2200 , 0.25mg @0352 - Dogoxin trough 2.5 @ 0458 08/10 (5) Chronic Medical Problems Status: Chronic Plan: Hypertension: Holding valsartan and hydrochlorothiazide, normotensive -Atorvastatin 20mg qhs PO for vascular odilon -Metoprolol 25mg Q8h as above (6) FEN/DVT PPX/GI PPX/Nursing Orders Plan: Fluids: holding IVF Electrolytes: Will monitor and replace as needed Nutrition: Heart healthy diet DVT Prophylaxis: Lovenox 40mg daily GI Prophylaxis: Protonix 40mg PO daily Constipation prophylaxis: Pericolace 1 tab PO BID scheduled, milk of magnesia PRN, lactulose, Fleet's enema PRN Medications Tylenol 650 mg by mouth every 4 hours when necessary pain 1-10 or temperature greater than 100.4F Zofran 4 mg IV push every 6 hours when necessary nausea vomiting [place] 325-5 mg 1 tab by mouth every 6 hours when necessary pain 5-7 [place] 325-10 mg 1 tab by mouth every 6 hours when necessary pain 8-10 Morphine 2 mg IV push every 3 hours when necessary breakthrough pain -Vitals Q4h -Monitor I's and O's -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
[2017-08-10 17:33] LABS: INTERNATIONAL NORMALIZED RATIO 1.1 RATIO
[2017-08-10] MEDS: WARFARIN SOD 5 MG TAB PO SCH (18:00)
[2017-08-10] MEDS: ATORVASTATIN 20 MG TAB PO SCH (20:24)
[2017-08-11] VITALS (23 sets, daily range): BP systolic 88–154; BP diastolic 46–88; PULSE 62–106; RESP 16–20; TEMP 97.3–98.9; O2SAT 95–97
[2017-08-11 03:44] LABS: HEMATOCRIT 32.9 % (39.0-51.0); MEAN CELL VOLUME 86.8 FL (80.0-100.0); MEAN CORPUSCULAR HEMOGLOBIN 28.9 PG (27.0-34.0); MEAN CORPUSCULAR HGB CONC 33.3 % (32.0-36.0); PLATELET COUNT 268 TH/MM3 (150-450); RED BLOOD COUNT 3.79 MIL/MM3 (4.50-5.90); RED CELL DISTRIBUTION WIDTH 14.2 % (11.6-17.2); REVIEW FLAG FINAL; WHITE BLOOD COUNT 8.1 TH/MM3 (4.0-11.0)
[2017-08-11 03:55] LABS: APTT (PATIENT) 60.6 SEC (24.3-30.1); INTERNATIONAL NORMALIZED RATIO 1.1 RATIO
[2017-08-11 04:03] LABS: BICARBONATE 27.8 MEQ/L (21.0-32.0)
[2017-08-11] MEDS: GENTAMICIN IV SCH ×4 (05:02→13:55)
[2017-08-11] MEDS: SODIUM CHLORIDE IV SCH ×4 (05:02→13:55)
[2017-08-11] MEDS: METOPROLOL TARTRATE 25 MG TAB PO SCH ×3 (05:03→20:31)
[2017-08-11] MEDS ORDERED: PHARMACY ORDERED LAB ONE (05:45)
[2017-08-11] MEDS: VITAMIN E 400 UNIT CAP PO SCH (08:11)
[2017-08-11] MEDS: PANTOPRAZOLE SOD 40 MG DELAYED RELEASE TAB PO SCH (08:11)
[2017-08-11] MEDS: CHOLECALCIFEROL (VIT D3) 1000 UNIT TAB PO SCH (08:11)
[2017-08-11] MEDS: TAMSULOSIN HCL 0.4 MG CAP PO SCH ×2 (08:11→20:20)
[2017-08-11] MEDS: ASPIRIN 81 MG CHEW TAB CHEW SCH (08:12)
[2017-08-11] MEDS: DOCUSATE SODIUM 50 MG/SENNA 8.6 MG TAB PO SCH ×2 (08:12→20:20)
[2017-08-11] MEDS: ceFAZolin 2 GM PREMIX 50 ML IV SCH ×3 (08:13→23:29)
[2017-08-11] MEDS: SODIUM CHLORIDE 0.9% FLUSH 10 ML FLUSH IV FLUSH SCH ×2 (08:13→20:21)
[2017-08-11] MEDS: DIGOXIN 0.125 MG TAB PO SCH (09:11)
--- NOTE | 2017-08-11 09:39 | HHI.FPPN ---
Subjective Remarks Patient is doing well this morning and has no acute concerns. He still has an elevated heart rate when he gets up from bed but not as high as previous days. He is still in AFIB but the rate is better controlled after addition of digoxin. He had questions about his blood cultures that we are expecting to result today. (Eko,Imelda Mcfadden MD R2) Objective Vitals Vital Signs Date Time Temp Pulse Resp B/P (MAP) Pulse Ox O2 Delivery O2 Flow Rate FiO2 08/11/17 06:00 75 08/11/17 05:00 72 08/11/17 04:00 Room Air 08/11/17 04:00 70 08/11/17 04:00 98.2 70 18 88/46 (60) 95 08/11/17 03:00 72 08/11/17 02:00 74 08/11/17 01:00 62 08/11/17 00:00 66 08/11/17 00:00 98.6 66 18 104/56 (72) 96 08/11/17 00:00 Room Air 08/10/17 23:00 65 08/10/17 22:00 74 08/10/17 21:00 81 08/10/17 20:00 98.1 78 20 110/60 (77) 96 08/10/17 20:00 78 08/10/17 18:26 77 08/10/17 17:57 88 08/10/17 16:00 77 08/10/17 15:11 73 08/10/17 15:00 98.4 98 18 120/64 (82) 98 08/10/17 13:00 87 08/10/17 12:00 97 08/10/17 11:03 98.4 98 18 118/60 (79) 98 08/10/17 11:03 85 08/10/17 10:00 97 I/O 08/10/17 08/10/17 08/10/17 08/11/17 08/11/17 08/11/17 07:00 15:00 23:00 07:00 15:00 23:00 Intake Total 634 ml 480 ml 772.3 ml Output Total 2175 ml 1600 ml 1700 ml Balance -1541 ml -1120 ml -927.7 ml Intake Oral 240 ml 480 ml 480 ml IV Total 394 ml 292.3 ml Output Urine Total 2175 ml 1600 ml 1700 ml # Bowel Movements 1 0 (Imelda Zeng MD R2) Result Diagram: 08/11/17 0320 08/11/17 0320 Objective Remarks GENERAL: WDWN elderly male patient laying in bed in no acute distress SKIN: Has abrasions on bilateral knees. No rashes noted. HEENT: Normocephalic, atraumatic, no nasal discharge. No oral sores. NECK: Supple, no meningeal signs, no lymphadenopathy. Trachea midline. CARDIOVASCULAR: Regular rate and irregular rhythm without murmur, gallop, or rub. Peripheral pulses and capillary refill wnl. RESPIRATORY: Clear to auscultation in all lung rojas. Breath sounds equal bilaterally. No wheezes, rales, or rhonchi. No increased WOB. GASTROINTESTINAL: No tenderness to palpation of the abdomen. Normal BS with no guarding or rigidity. MSK: Normal range of motion; can ambulate w/o pain. Moves all extremities spontaneously with good coordination. Neuro: Awake, alert, PERRLA, EOMI, normal strength and sensation distally. Procedures Transesophageal ECHO - 08/07/17 (Imelda Zeng MD R2) A/P Assessment and Plan 76-year-old male presented on 08/03/17 with right lower quadrant/right groin pain, met sepsis criteria with unknown source, since then proven bacteremia with blood cultures positive for MSSA 08/03-08/07; ORTIZ 08/07 with aortic valve vegetation indicating MSSA endocarditis; being followed by Dr Silver, ID, and treated with Ancef IV with addition of Gentamicin on 08/07 for synergy. New onset atrial fibrillation with RVR likely 2/2 bacteremia that is being managed with metoprolol and digoxin; acute urinary retention which has resolved. Infectious disease, neurosurgery, urology, and cardiology were consulted. PT indicates pt to discharge home with no PT. Per ID, blood cx must be negative for 5 days before pt can be discharged with IV antibiotics to be administered as an outpatient. Pt is stable and improving. Seen and examined with Dr. Gonzalez. Discussed with Dr. Roman Discharge Planning Pending resolution of bacteremia, good heart rate control, anticoagulated appropriately, and discharge recommendations infectious disease. (Imelda Zeng MD R2) Attending Attestation Case reviewed and discussed with the resident team. Agree with plan of care as discussed with me and documented in the resident note. (Alessio Roman MD) Problem List: (1) Sepsis ICD Codes: A41.9 - Sepsis, unspecified organism Status: Acute Plan: Initially meeting sepsis criteria with leukocytosis and fevers, positive blood cultures with MSSA. Lactate normal. Elevated pulse, found to be in atrial fibrillation with RVR. Maintaining normal blood pressures, otherwise hemodynamically stable. Now afebrile >48hours. On admit, UA that is bloody but no nitrites or leukocyte esterase. MRI of lumbar and sacral spine not showing any epidural abscess from Hx of corticosteroid injections in lower back, or sign of osteomyelitis/infected metal hardware from spinal fusion >10years ago. CT abdomen showing no source of infection. Has abrasions on knees that could be source of possible entrance. No history of IV drug use. - UA and CXR neg - Continue Ancef 2 g IV started 08/04/17 - Continue Gentamicin IV started 08/08 - Gentamicin peak/trough as per ID - WBC 8.1 and has been wnl since 08/04 @ 11.4 - Blood cx: trending until free of infection -- positive MSSA 08/03-08/07; cx from 08/10/17 shows no growth x 1day - Per Dr Silver: require 5 days of infection-free cx before discharge with outpatient IV antibiotics - ID, Dr Silver following, appreciate recs - 2D ECHO with mild tricuspid regurgitation, mild to moderate mitral valve regurgitation, and moderate left atrial dilation, no mention of vegetations - Dr Arrieta, Cardiology, performed ORTIZ 08/07 - with aortic valve thrombus vs vegetation - Xray: Left knee w/no s/s of infection; Right knee with small effusion and tricompartmental osteoarthritis (2) Urinary retention ICD Codes: R33.9 - Retention of urine, unspecified Status: Acute Plan: Resolved. Acute urinary retention with gross hematuria. Concern for moderate to severe lumbar stenosis, possible source of urinary retention. Also with enlarged prostate noted on MRI. No epidural abscess noted on MRI of back. Lower extremity weakness subjectively, but strength is normal on neuro exam. Normal rectal tone on examination. Enlarged prostate not appreciated on exam but is noted on imaging. - Per urology - started on Flomax 0.4 mg PO every 12 hours - Straight catheter as needed - no requirement for cath overnight - PSA within normal limits at 1.61 (3) Constipation ICD Codes: K59.00 - Constipation, unspecified Status: Chronic Plan: -Patient reports having problems with chronic constipation -Currently on severe constipation regimen with additional fleets enema with mineral oil PRN -Missy-colace 1 tab BID scheduled (4) Atrial fibrillation with RVR ICD Codes: I48.91 - Unspecified atrial fibrillation Plan: Stable. Patient initially presented with regular rate and rhythm but developed new onset A. fib with RVR. Received 10 mg IV diltiazem bolus and was transitioned to diltiazem drip which was discontinued after resolution of RVR but remains in A. fib. Troponins elevated but flat on trend. TSH WNL at 0.876. BNP mildly elevated. Nursing reports today that pt's rate jumped to 140-150 when OOB and ambulating yesterday. Dr Arrieta started Digoxin yesterday - 2D ECHO shows moderate after atrial enlargement - Cardiology was consulted for new onset A. fib - Metoprolol tatrate 25 mg q8h - Started on heparin drip (in case of procedure), likely bridge to a NOAC when stable - Dr Arrieta performed ORTIZ 08/07 at request of ID to r/o endocarditis -- vegetation vs thrombus on aortic valve - Digoxin 0.125mg daily after loading doses on 08/09: 0.5mg @1745, 0.25mg @2200 , 0.25mg @0352 - Dogoxin trough 2.5 @ 0458 08/10 (5) Chronic Medical Problems Status: Chronic Plan: Hypertension: Holding valsartan and hydrochlorothiazide, normotensive -Atorvastatin 20mg qhs PO for hyperlipidemia -Metoprolol 25mg Q8h as above (6) FEN/DVT PPX/GI PPX/Nursing Orders Plan: Fluids: holding IVF Electrolytes: Will monitor and replace as needed Nutrition: Heart healthy diet DVT Prophylaxis: On heparin drip with bridge to warfarin GI Prophylaxis: Protonix 40mg PO daily Constipation prophylaxis: Pericolace 1 tab PO BID scheduled, milk of magnesia PRN, lactulose, Fleet's enema PRN Medications Tylenol 650 mg by mouth every 4 hours when necessary pain 1-10 or temperature greater than 100.4F Zofran 4 mg IV push every 6 hours when necessary nausea vomiting [place] 325-5 mg 1 tab by mouth every 6 hours when necessary pain 5-7 [place] 325-10 mg 1 tab by mouth every 6 hours when necessary pain 8-10 -Vitals Q4h -Monitor I's and O's -compliance monitor with telemetry with continuous vital signs -Activity OOB with assistance -PT to assist with ambulation and strengthening exercises -Case management consult to assist with discharge disposition (Imelda Zeng MD R2) Problem Qualifiers (1) Sepsis: Qualified Codes: A41.01 - Sepsis due to methicillin susceptible Staphylococcus aureus Imelda Zeng MD R2 Aug 11, 2017 09:39 Alessio Roman MD Aug 12, 2017 20:28
[2017-08-11] MEDS: WARFARIN SOD 5 MG TAB PO SCH (15:46)
[2017-08-11] MEDS: HEPARIN-D5W 25,000 U/250 ML 250 ML IV PRN (19:09)
[2017-08-11] MEDS: ATORVASTATIN 20 MG TAB PO SCH (20:21)
[2017-08-11] MEDS: GENTAMICIN/SOD CHL 80 MG/100 ML IV SCH (21:54)
[2017-08-12] VITALS (13 sets, daily range): BP systolic 86–133; BP diastolic 52–93; PULSE 55–74; RESP 17–18; TEMP 97.9–98.4; O2SAT 96–100
[2017-08-12] MEDS: METOPROLOL TARTRATE 25 MG TAB PO SCH ×3 (05:21→21:34)
[2017-08-12] MEDS: GENTAMICIN/SOD CHL 80 MG/100 ML IV SCH ×2 (05:22→14:14)
[2017-08-12 07:11] LABS: HEMATOCRIT 32.6 % (39.0-51.0); MEAN CELL VOLUME 87.5 FL (80.0-100.0); MEAN CORPUSCULAR HEMOGLOBIN 29.9 PG (27.0-34.0); MEAN CORPUSCULAR HGB CONC 34.1 % (32.0-36.0); PLATELET COUNT 265 TH/MM3 (150-450); RED BLOOD COUNT 3.73 MIL/MM3 (4.50-5.90); RED CELL DISTRIBUTION WIDTH 13.9 % (11.6-17.2); REVIEW FLAG FINAL; WHITE BLOOD COUNT 9.4 TH/MM3 (4.0-11.0)
[2017-08-12 07:18] LABS: INTERNATIONAL NORMALIZED RATIO 1.2 RATIO; PROTHROMBIN TIME - PATIENT 13.2 SEC (9.8-11.6)
[2017-08-12 07:27] LABS: APTT (PATIENT) 75.2 SEC (24.3-30.1)
[2017-08-12 07:31] LABS: BICARBONATE 27.2 MEQ/L (21.0-32.0); POTASSIUM 4.2 MEQ/L (3.5-5.1)
[2017-08-12] MEDS: DOCUSATE SODIUM 50 MG/SENNA 8.6 MG TAB PO SCH ×2 (08:27→21:34)
[2017-08-12] MEDS: CHOLECALCIFEROL (VIT D3) 1000 UNIT TAB PO SCH (08:27)
[2017-08-12] MEDS: ASPIRIN 81 MG CHEW TAB CHEW SCH (08:27)
[2017-08-12] MEDS: DIGOXIN 0.125 MG TAB PO SCH (08:27)
[2017-08-12] MEDS: VITAMIN E 400 UNIT CAP PO SCH (08:27)
[2017-08-12] MEDS: TAMSULOSIN HCL 0.4 MG CAP PO SCH ×2 (08:27→21:34)
[2017-08-12] MEDS: ceFAZolin 2 GM PREMIX 50 ML IV SCH ×2 (08:28→17:33)
[2017-08-12] MEDS: PANTOPRAZOLE SOD 40 MG DELAYED RELEASE TAB PO SCH (08:28)
[2017-08-12] MEDS: SODIUM CHLORIDE 0.9% FLUSH 10 ML FLUSH IV FLUSH SCH ×2 (08:29→21:38)
[2017-08-12] MEDS: HEPARIN-D5W 25,000 U/250 ML 250 ML IV PRN (11:50)
--- NOTE | 2017-08-12 12:31 | HHI.FPPN ---
Subjective Remarks Mr Bradshaw had no acute events overnight. He tells us this morning that the nurse told him his heart is no longer in afib. He is taking PO with good appetite, voiding and stooling, and doing lots of walking the hallway. We answered questions his daughter had vis speakerphone. No CP, SOB, N/V/D, or DVT pain. (Aman Gonzalez MD R1) Objective Vitals Vital Signs Date Time Temp Pulse Resp B/P (MAP) Pulse Ox O2 Delivery O2 Flow Rate FiO2 08/12/17 08:30 97.9 63 18 118/73 (88) 97 08/12/17 07:00 70 08/12/17 06:00 70 08/12/17 05:00 59 08/12/17 04:00 57 08/12/17 04:00 98.0 57 18 110/62 (78) 96 08/12/17 03:00 55 08/12/17 02:00 60 08/12/17 02:00 118/75 (89) 08/12/17 01:00 62 08/12/17 00:00 68 08/12/17 00:00 Room Air 08/12/17 00:00 98.1 68 18 86/52 (63) 97 08/11/17 23:00 65 08/11/17 22:00 69 08/11/17 21:00 66 08/11/17 20:00 Room Air 08/11/17 20:00 98.2 74 20 154/88 (110) 97 08/11/17 20:00 74 08/11/17 18:00 104 08/11/17 17:00 98 08/11/17 16:00 84 08/11/17 15:00 98.9 79 20 107/66 (80) 96 08/11/17 15:00 82 08/11/17 14:00 102 08/11/17 13:00 106 I/O 08/11/17 08/11/17 08/11/17 08/12/17 08/12/17 08/12/17 07:00 15:00 23:00 07:00 15:00 23:00 Intake Total 772.3 ml 152.3 ml 890 ml 480 ml Output Total 1700 ml 725 ml 1400 ml Balance -927.7 ml 152.3 ml 165 ml -920 ml Intake Oral 480 ml 840 ml 480 ml IV Total 292.3 ml 152.3 ml 50 ml Output Urine Total 1700 ml 725 ml 1400 ml # Voids 1 # Bowel Movements 0 1 0 (Aman Gonzalez MD R1) Result Diagram: 08/12/17 0700 08/12/17 0700 Objective Remarks GENERAL: WDWN elderly male patient laying in bed in no acute distress SKIN: Has abrasions on bilateral knees. No rashes noted. HEENT: Normocephalic, atraumatic, no nasal discharge. No oral sores. NECK: Supple, no meningeal signs, no lymphadenopathy. Trachea midline. CARDIOVASCULAR: Regular rate and irregular rhythm without murmur, gallop, or rub. Peripheral pulses and capillary refill wnl. RESPIRATORY: Clear to auscultation in all lung rojas. Breath sounds equal bilaterally. No wheezes, rales, or rhonchi. No increased WOB. GASTROINTESTINAL: No tenderness to palpation of the abdomen. Normal BS with no guarding or rigidity. MSK: Normal range of motion; can ambulate w/o pain. Moves all extremities spontaneously with good coordination. Neuro: Awake, alert, PERRLA, EOMI, normal strength and sensation distally. Procedures Transesophageal ECHO - 08/07/17 Medications and IVs Current Medications Medications (Trade) Dose Ordered Sig/Lelia Route Start Time Stop Time Status Last Admin (NS Flush) 2 ml UNSCH PRN IV FLUSH 08/03/17 12:45 (NS Flush) 2 ml BID IV FLUSH 08/03/17 21:00 08/12/17 08:29 (Aspirin Chew) 162 mg DAILY CHEW 08/04/17 09:00 08/12/17 08:27 (Lipitor) 20 mg HS PO 08/03/17 21:00 08/11/17 20:21 (Vitamin D3) 1,000 units DAILY PO 08/04/17 09:00 08/12/17 08:27 (Microzide) 12.5 mg DAILY PO 08/04/17 09:00 Future Hold (Diovan) 40 mg DAILY PO 08/04/17 09:00 Future Hold (Vitamin E) 400 units DAILY PO 08/04/17 09:00 08/12/17 08:27 (Pill Splitter) 1 ea UNSCH PRN OTHER 08/03/17 13:00 (Tylenol) 650 mg Q6H PRN PO 08/03/17 13:15 08/03/17 14:06 (Zofran Inj) 4 mg Q6H PRN IV PUSH 08/03/17 13:15 (Protonix) 40 mg DAILY PO 08/04/17 09:00 08/12/17 08:28 (Missy-Colace) 1 tab BID PO 08/03/17 21:00 08/12/17 08:27 (Milk Of Magnesia Liq) 30 ml Q12H PRN PO 08/03/17 15:45 08/04/17 06:19 (Senokot) 17.2 mg Q12H PRN PO 08/03/17 15:45 08/05/17 08:30 (Dulcolax Supp) 10 mg DAILY PRN RECTAL 08/03/17 15:45 (Lactulose Liq) 30 ml DAILY PRN PO 08/03/17 15:45 08/09/17 16:38 ([place] 5-325 Mg) 1 tab Q4H PRN PO 08/04/17 01:30 08/08/17 13:00 ([place] 10-325 Mg) 1 tab Q4H PRN PO 08/04/17 01:30 08/04/17 02:24 (Flomax) 0.4 mg Q12HR PO 08/04/17 10:00 08/12/17 08:27 Heparin Sodium/ Dextrose 250 ml @ 10 mls/hr TITRATE PRN IV 08/04/17 11:30 Future hold 08/12/17 11:50 Cefazolin Sodium/ Dextrose 50 ml @ 100 mls/hr Q8H IV 08/04/17 16:00 08/12/17 08:28 (Fleet Mineral Oil Enema) 118 ml DAILY PRN RECTAL 08/05/17 08:15 08/05/17 11:40 Pharmacy Profile Note 0 ml @ 0 mls/hr UNSCH OTHER 08/08/17 09:30 (Lopressor) 25 mg Q8HR PO 08/09/17 08:00 08/12/17 05:21 (Lanoxin) 0.125 mg DAILY PO 08/10/17 09:00 08/12/17 08:27 (Coumadin) 5 mg DAILY@1600 PO 08/10/17 18:00 08/11/17 15:46 Pharmacy Profile Note ml @ 0 mls/hr UNSCH OTHER 08/10/17 18:00 Gentamicin Sulfate/Sodium Chloride 100 ml @ 200 mls/hr Q8H IV 08/11/17 22:00 08/12/17 05:22 Miscellaneous Information SPECIFIC LAB TO BE ... 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 New onset atrial fibrillation with RVR likely 2/2 bacteremia that is being managed with metoprolol and digoxin; acute urinary retention which has resolved. Infectious disease, neurosurgery, urology, and cardiology were consulted. PT indicates pt to discharge home with no PT. Per ID, blood cx must be negative for 5 days before pt can be discharged with IV antibiotics to be administered as an outpatient. Pt is stable and improving. GOALS Today: 08/12: 1. Continue to trend blood cx from 08/10 that are NGTD--per ID, Dr Silver, cx must be infection free >5days before discharge with IV abx 2. Continue Coumadin bridge 3. Digoxin level 1.2 08/11, will collect one tomorrow to ensure efficacy 4. Pt transfer out of [facility] with pt no longer in afib Seen and examined with Dr. Moore Discharge Planning Pending resolution of bacteremia, good heart rate control, anticoagulated appropriately, and discharge recommendations infectious disease. (Aman Gonzalez MD R1) Attending Attestation Case reviewed and discussed with the resident team. Agree with plan of care as discussed with me and documented in the resident note. (Alessio Roman MD) Problem List: (1) Sepsis ICD Codes: A41.9 - Sepsis, unspecified organism Status: Acute Plan: Initially meeting sepsis criteria with leukocytosis and fevers, positive blood cultures with MSSA. Lactate normal. Elevated pulse, found to be in atrial fibrillation with RVR. Maintaining normal blood pressures, otherwise hemodynamically stable. Now afebrile >48hours. On admit, UA that is bloody but no nitrites or leukocyte esterase. MRI of lumbar and sacral spine not showing any epidural abscess from Hx of corticosteroid injections in lower back, or sign of osteomyelitis/infected metal hardware from spinal fusion >10years ago. CT abdomen showing no source of infection. Has abrasions on knees that could be source of possible entrance. No history of IV drug use. - UA and CXR neg - Continue Ancef 2 g IV started 08/04/17 - Continue Gentamicin IV started 08/08 - Gentamicin peak/trough as per ID - WBC 8.1 and has been wnl since 08/04 @ 11.4 - Blood cx: trending until free of infection -- positive MSSA 08/03-08/07; cx from 08/10/17 NGTD - Per Dr Silver: require 5 days of infection-free cx before discharge with outpatient IV antibiotics - ID, Dr Silver following, appreciate recs - 2D ECHO with mild tricuspid regurgitation, mild to moderate mitral valve regurgitation, and moderate left atrial dilation, no mention of vegetations - Dr Arrieta, Cardiology, performed ORTIZ 08/07 - with aortic valve thrombus vs vegetation - Xray: Left knee w/no s/s of infection; Right knee with small effusion and tricompartmental osteoarthritis (2) Urinary retention ICD Codes: R33.9 - Retention of urine, unspecified Status: Acute Plan: Resolved. Acute urinary retention with gross hematuria. Concern for moderate to severe lumbar stenosis, possible source of urinary retention. Also with enlarged prostate noted on MRI. No epidural abscess noted on MRI of back. Lower extremity weakness subjectively, but strength is normal on neuro exam. Normal rectal tone on examination. Enlarged prostate not appreciated on exam but is noted on imaging. - Per urology - started on Flomax 0.4 mg PO every 12 hours - Straight catheter as needed - no requirement for cath overnight - PSA within normal limits at 1.61 (3) Constipation ICD Codes: K59.00 - Constipation, unspecified Status: Chronic Plan: -Patient reports having problems with chronic constipation -Currently on severe constipation regimen with additional fleets enema with mineral oil PRN -Missy-colace 1 tab BID scheduled (4) Atrial fibrillation with RVR ICD Codes: I48.91 - Unspecified atrial fibrillation Plan: Stable. Patient initially presented with regular rate and rhythm but developed new onset A. fib with RVR. Received 10 mg IV diltiazem bolus and was transitioned to diltiazem drip which was discontinued after resolution of RVR but remains in A. fib. Troponins elevated but flat on trend. TSH WNL at 0.876. BNP mildly elevated. Nursing reports today that pt's rate jumped to 140-150 when OOB and ambulating yesterday. Dr Arrieta started Digoxin 08/09; report of no afib overnight - 2D ECHO shows moderate after atrial enlargement - Cardiology was consulted for new onset A. fib - Metoprolol tatrate 25 mg q8h - Started on heparin drip (in case of procedure), likely bridge to a NOAC when stable - Dr Arrieta performed ORTIZ 08/07 at request of ID to r/o endocarditis -- vegetation vs thrombus on aortic valve - Digoxin 0.125mg daily after loading doses on 08/09: 0.5mg @1745, 0.25mg @2200 , 0.25mg @0352 - Digoxin trough 2.5 @ 0458 08/10; 1.2 on 08/11; collecting one 08/13 (5) Chronic Medical Problems Status: Chronic Plan: Hypertension: Holding valsartan and hydrochlorothiazide, normotensive -Atorvastatin 20mg qhs PO for hyperlipidemia -Metoprolol tartrate 25mg Q8h as above (6) FEN/DVT PPX/GI PPX/Nursing Orders Plan: Fluids: holding IVF Electrolytes: Will monitor and replace as needed Nutrition: Heart healthy diet DVT Prophylaxis: On heparin drip with bridge to warfarin; pt received coumadin education and is comfortable with plan now GI Prophylaxis: Protonix 40mg PO daily Constipation prophylaxis: Pericolace 1 tab PO BID scheduled, milk of magnesia PRN, lactulose, Fleet's enema PRN Medications Tylenol 650 mg by mouth every 4 hours when necessary pain 1-10 or temperature greater than 100.4F Zofran 4 mg IV push every 6 hours when necessary nausea vomiting [place] 325-5 mg 1 tab by mouth every 6 hours when necessary pain 5-7 [place] 325-10 mg 1 tab by mouth every 6 hours when necessary pain 8-10 -Vitals Q4h -Monitor I's and O's -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
[2017-08-12] MEDS ORDERED: PHARMACY ORDERED LAB ONE (13:45)
[2017-08-12] MEDS: WARFARIN SOD 5 MG TAB PO SCH (17:33)
[2017-08-12] MEDS: ATORVASTATIN 20 MG TAB PO SCH (21:34)
[2017-08-13] VITALS (9 sets, daily range): BP systolic 107–134; BP diastolic 54–71; PULSE 52–65; RESP 17–19; TEMP 98.3–98.8; O2SAT 95–100
[2017-08-13] MEDS: ceFAZolin 2 GM PREMIX 50 ML IV SCH ×3 (00:23→16:07)
[2017-08-13] MEDS: METOPROLOL TARTRATE 25 MG TAB PO SCH ×2 (06:02→20:27)
[2017-08-13] MEDS: HEPARIN-D5W 25,000 U/250 ML 250 ML IV PRN (06:07)
[2017-08-13 07:39] LABS: HEMATOCRIT 32.7 % (39.0-51.0); MEAN CELL VOLUME 87.8 FL (80.0-100.0); MEAN CORPUSCULAR HEMOGLOBIN 29.4 PG (27.0-34.0); MEAN CORPUSCULAR HGB CONC 33.5 % (32.0-36.0); PLATELET COUNT 271 TH/MM3 (150-450); RED BLOOD COUNT 3.73 MIL/MM3 (4.50-5.90); RED CELL DISTRIBUTION WIDTH 14.2 % (11.6-17.2); REVIEW FLAG FINAL; WHITE BLOOD COUNT 8.7 TH/MM3 (4.0-11.0)
[2017-08-13 07:59] LABS: APTT (PATIENT) 88.4 SEC (24.3-30.1); INTERNATIONAL NORMALIZED RATIO 1.6 RATIO; PROTHROMBIN TIME - PATIENT 18.2 SEC (9.8-11.6)
[2017-08-13 08:04] LABS: BICARBONATE 26.5 MEQ/L (21.0-32.0)
[2017-08-13 08:19] LABS: DIGOXIN 0.8 NG/ML (0.8-2.0)
[2017-08-13] MEDS: DOCUSATE SODIUM 50 MG/SENNA 8.6 MG TAB PO SCH ×2 (08:43→20:28)
[2017-08-13] MEDS: DIGOXIN 0.125 MG TAB PO SCH (08:44)
[2017-08-13] MEDS: CHOLECALCIFEROL (VIT D3) 1000 UNIT TAB PO SCH (08:44)
[2017-08-13] MEDS: ASPIRIN 81 MG CHEW TAB CHEW SCH (08:44)
[2017-08-13] MEDS: VITAMIN E 400 UNIT CAP PO SCH (08:44)
[2017-08-13] MEDS: PANTOPRAZOLE SOD 40 MG DELAYED RELEASE TAB PO SCH (08:44)
[2017-08-13] MEDS: TAMSULOSIN HCL 0.4 MG CAP PO SCH ×2 (08:44→20:28)
[2017-08-13] MEDS: SODIUM CHLORIDE 0.9% FLUSH 10 ML FLUSH IV FLUSH SCH ×2 (08:45→20:28)
--- NOTE | 2017-08-13 14:42 | HHI.FPPN ---
Subjective Remarks Mr Bradshaw had no acute events overnight. He feels well, is eating, drinking, ambulating and in no pain. He is hopeful his last blood cultures will be negative tomorrow so he might be able to discharge. Denies CP, SOB, N/V/D, or DVT pain. (Aman Gonzalez MD R1) Objective Vitals Vital Signs Date Time Temp Pulse Resp B/P (MAP) Pulse Ox O2 Delivery O2 Flow Rate FiO2 08/13/17 12:00 98.5 60 19 122/67 (85) 100 08/13/17 11:10 52 08/13/17 11:02 Room Air 08/13/17 08:00 98.4 54 19 116/63 (80) 97 08/13/17 04:00 Room Air 08/13/17 04:00 98.5 62 17 122/66 (84) 96 08/13/17 00:00 Room Air 08/13/17 00:00 98.8 55 17 120/58 (78) 96 08/12/17 20:06 59 08/12/17 20:00 Room Air 08/12/17 20:00 98.4 58 17 133/93 (106) 97 08/12/17 16:00 98.2 74 18 109/59 (76) 100 I/O 08/12/17 08/12/17 08/12/17 08/13/17 08/13/17 08/13/17 07:00 15:00 23:00 07:00 15:00 23:00 Intake Total 480 ml 840 ml 1077 ml Output Total 1400 ml 850 ml 1050 ml Balance -920 ml -10 ml 27 ml Intake Oral 480 ml 840 ml 840 ml IV Total 237 ml Output Urine Total 1400 ml 850 ml 1050 ml # Bowel Movements 0 0 (Aman Gonzalez MD R1) Result Diagram: 08/13/17 0630 08/13/17 0636 Objective Remarks GENERAL: WDWN elderly male patient laying in bed and sitting up in no acute distress SKIN: Has abrasions on bilateral knees that are resolving. No rashes noted. HEENT: Normocephalic, atraumatic, no nasal discharge. No oral sores. NECK: Supple, no meningeal signs, no lymphadenopathy. Trachea midline. CARDIOVASCULAR: Regular rate and irregular rhythm without murmur, gallop, or rub. Peripheral pulses and capillary refill wnl. RESPIRATORY: Clear to auscultation in all lung rojas. Breath sounds equal bilaterally. No wheezes, rales, or rhonchi. No increased WOB. GASTROINTESTINAL: No tenderness to palpation of the abdomen. Normal BS with no guarding or rigidity. MSK: Normal range of motion; can ambulate w/o pain. Moves all extremities spontaneously with good coordination. Neuro: Awake, alert, PERRLA, EOMI, normal strength and sensation distally. Procedures Transesophageal ECHO - 08/07/17 Medications and IVs Current Medications Medications (Trade) Dose Ordered Sig/Lelia Route Start Time Stop Time Status Last Admin (NS Flush) 2 ml UNSCH PRN IV FLUSH 08/03/17 12:45 (NS Flush) 2 ml BID IV FLUSH 08/03/17 21:00 08/13/17 08:45 (Aspirin Chew) 162 mg DAILY CHEW 08/04/17 09:00 08/13/17 08:44 (Lipitor) 20 mg HS PO 08/03/17 21:00 08/12/17 21:34 (Vitamin D3) 1,000 units DAILY PO 08/04/17 09:00 08/13/17 08:44 (Microzide) 12.5 mg DAILY PO 08/04/17 09:00 Future Hold (Diovan) 40 mg DAILY PO 08/04/17 09:00 Future Hold (Vitamin E) 400 units DAILY PO 08/04/17 09:00 08/13/17 08:44 (Pill Splitter) 1 ea UNSCH PRN OTHER 08/03/17 13:00 (Tylenol) 650 mg Q6H PRN PO 08/03/17 13:15 08/03/17 14:06 (Zofran Inj) 4 mg Q6H PRN IV PUSH 08/03/17 13:15 (Protonix) 40 mg DAILY PO 08/04/17 09:00 08/13/17 08:44 (Missy-Colace) 1 tab BID PO 08/03/17 21:00 08/13/17 08:43 (Milk Of Magnesia Liq) 30 ml Q12H PRN PO 08/03/17 15:45 08/04/17 06:19 (Senokot) 17.2 mg Q12H PRN PO 08/03/17 15:45 08/05/17 08:30 (Dulcolax Supp) 10 mg DAILY PRN RECTAL 08/03/17 15:45 (Lactulose Liq) 30 ml DAILY PRN PO 08/03/17 15:45 08/09/17 16:38 ([place] 5-325 Mg) 1 tab Q4H PRN PO 08/04/17 01:30 08/08/17 13:00 ([place] 10-325 Mg) 1 tab Q4H PRN PO 08/04/17 01:30 08/04/17 02:24 (Flomax) 0.4 mg Q12HR PO 08/04/17 10:00 08/13/17 08:44 Heparin Sodium/ Dextrose 250 ml @ 10 mls/hr TITRATE PRN IV 08/04/17 11:30 Future hold 08/13/17 06:07 Cefazolin Sodium/ Dextrose 50 ml @ 100 mls/hr Q8H IV 08/04/17 16:00 08/13/17 08:43 (Fleet Mineral Oil Enema) 118 ml DAILY PRN RECTAL 08/05/17 08:15 08/05/17 11:40 (Lanoxin) 0.125 mg DAILY PO 08/10/17 09:00 08/13/17 08:44 Pharmacy Profile Note ml @ 0 mls/hr UNSCH OTHER 08/10/17 18:00 (Lopressor) 25 mg Q12HR PO 08/13/17 21:00 (Coumadin) 4 mg DAILY@1600 PO 08/13/17 16:00 (Aman Gonzalez MD R1) Urinary Catheter: No (Aman Gonzalez MD R1) A/P Assessment and Plan 76-year-old male presented on 08/03/17 with right lower quadrant/right groin pain, met sepsis criteria with unknown source, since then proven bacteremia with blood cultures positive for MSSA 08/03-08/07; ORTIZ 08/07 with aortic valve vegetation indicating MSSA endocarditis; being followed by Dr Silver, ID, and treated with Ancef IV with addition of Gentamicin on 08/07 for synergy. New onset atrial fibrillation with RVR likely 2/2 bacteremia that is being managed with metoprolol and digoxin; acute urinary retention which has resolved. Infectious disease, neurosurgery, urology, and cardiology were consulted. PT indicates pt to discharge home with no PT. Per ID, blood cx must be negative for 5 days before pt can be discharged with IV antibiotics to be administered as an outpatient. Pt is stable and improving. GOALS Today: 08/13: 1. Continue to trend blood cx from 08/10 that are NGTD--per ID, Dr Silver, cx must be infection free >5days before discharge with IV abx 2. Continue Coumadin bridge 3. Digoxin level 0.8 08/13, will collect one prior to discharge 4. Pt bradycardic to 50s overnight, symptomatic; reducing Metoprolol tartrate to 50mg BID Seen and examined with Dr. Rojo Discharge Planning Pending resolution of bacteremia, good heart rate control, anticoagulated appropriately, and discharge recommendations infectious disease. (Aman Gonzalez MD R1) Attending Attestation Patient seen and examined with Dr. Gonzalez. Case reviewed and discussed Agree with plan of care as discussed with me and documented in the resident note. (Ana Rojo MD) Problem List: (1) Sepsis ICD Codes: A41.9 - Sepsis, unspecified organism Status: Acute Plan: Initially meeting sepsis criteria with leukocytosis and fevers, positive blood cultures with MSSA. Lactate normal. Elevated pulse, found to be in atrial fibrillation with RVR. Maintaining normal blood pressures, otherwise hemodynamically stable. Now afebrile >48hours. On admit, UA that is bloody but no nitrites or leukocyte esterase. MRI of lumbar and sacral spine not showing any epidural abscess from Hx of corticosteroid injections in lower back, or sign of osteomyelitis/infected metal hardware from spinal fusion >10years ago. CT abdomen showing no source of infection. Has abrasions on knees that could be source of possible entrance. No history of IV drug use. - UA and CXR neg - Continue Ancef 2 g IV started 08/04/17 - Continue Gentamicin IV started 08/08 - Gentamicin peak/trough as per ID - WBC 8.1 and has been wnl since 08/04 @ 11.4 - Blood cx: trending until free of infection -- positive MSSA 08/03-08/07; cx from 08/10/17 NGTD - Per Dr Silver: require 5 days of infection-free cx before discharge with outpatient IV antibiotics - ID, Dr Nemani following, appreciate recs - 2D ECHO with mild tricuspid regurgitation, mild to moderate mitral valve regurgitation, and moderate left atrial dilation, no mention of vegetations - Dr Arrieta, Cardiology, performed ORTIZ 08/07 - with aortic valve thrombus vs vegetation - Xray: Left knee w/no s/s of infection; Right knee with small effusion and tricompartmental osteoarthritis (2) Urinary retention ICD Codes: R33.9 - Retention of urine, unspecified Status: Acute Plan: Resolved. Acute urinary retention with gross hematuria. Concern for moderate to severe lumbar stenosis, possible source of urinary retention. Also with enlarged prostate noted on MRI. No epidural abscess noted on MRI of back. Lower extremity weakness subjectively, but strength is normal on neuro exam. Normal rectal tone on examination. Enlarged prostate not appreciated on exam but is noted on imaging. - Per urology - started on Flomax 0.4 mg PO every 12 hours - Straight catheter as needed - no requirement for cath overnight - PSA within normal limits at 1.61 (3) Constipation ICD Codes: K59.00 - Constipation, unspecified Status: Chronic Plan: -Patient reports having problems with chronic constipation -Currently on severe constipation regimen with additional fleets enema with mineral oil PRN -Missy-colace 1 tab BID scheduled (4) Atrial fibrillation with RVR ICD Codes: I48.91 - Unspecified atrial fibrillation Plan: Stable. Patient initially presented with regular rate and rhythm but developed new onset A. fib with RVR. Received 10 mg IV diltiazem bolus and was transitioned to diltiazem drip which was discontinued after resolution of RVR but remains in A. fib. Troponins elevated but flat on trend. TSH WNL at 0.876. BNP mildly elevated. Nursing reports today that pt's rate jumped to 140-150 when OOB and ambulating yesterday. Dr Arrieta started Digoxin 08/09; report of no afib overnight - 2D ECHO shows moderate after atrial enlargement - Cardiology was consulted for new onset A. fib - Metoprolol tartrate 25 mg q12h - Coumadin bridge - Dr Arrieta performed ORTIZ 08/07 at request of ID to r/o endocarditis -- vegetation vs thrombus on aortic valve - Digoxin 0.125mg daily after loading doses on 08/09: 0.5mg @1745, 0.25mg @2200 , 0.25mg @0352 - Digoxin trough 2.5 @ 0458 08/10; 1.2 on 08/11; 0.8 08/13; check one prior to discharge (5) Chronic Medical Problems Status: Chronic Plan: Hypertension: Holding valsartan and hydrochlorothiazide, normotensive -Atorvastatin 20mg qhs PO for hyperlipidemia -Metoprolol tartrate 25mg q12h as above (6) FEN/DVT PPX/GI PPX/Nursing Orders Plan: Fluids: holding IVF Electrolytes: Will monitor and replace as needed Nutrition: Heart healthy diet DVT Prophylaxis: On heparin drip with bridge to warfarin GI Prophylaxis: Protonix 40mg PO daily Constipation prophylaxis: Pericolace 1 tab PO BID scheduled, milk of magnesia PRN, lactulose, Fleet's enema PRN Medications Tylenol 650 mg by mouth every 4 hours when necessary pain 1-10 or temperature greater than 100.4F Zofran 4 mg IV push every 6 hours when necessary nausea vomiting [place] 325-5 mg 1 tab by mouth every 6 hours when necessary pain 5-7 [place] 325-10 mg 1 tab by mouth every 6 hours when necessary pain 8-10 -Vitals Q4h -Monitor I's and O's -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
[2017-08-13] MEDS ORDERED: SOLU250I IV PUSH (15:29)
[2017-08-13] MEDS ORDERED: EPIN1INJ21 SQ (15:29)
[2017-08-13] MEDS ORDERED: CEFA1SOL IV (15:29)
[2017-08-13] MEDS ORDERED: EPIN1INJ21 IV PUSH (15:29)
--- NOTE | 2017-08-13 15:33 | HHI.FF ---
cc: Belia Bloom MD Infusion Therapy Location of Infusion Therapy: [facility] IV Infusion Order Patient Information Appointment Date: Aug 13, 2017 Patient Weight 87.4 kg Diagnosis: Diagnosis MSSA aortic valve endocarditis. 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 [] May leave port accessed during therapy. [] May leave peripheral site accessed for duration of therapy. [x] If patient has SOB or respiratory distress, check oxygen saturation. If less than 90% or clinical signs of respiratory distress, administer oxygen at 2 L/min. via nasal cannula and notify physician. [x] Anaphylaxis/Reaction orders: * Stop infusion. * Keep IV line open with saline flush. * Notify physician. * Monitor vital signs every 15 minutes until symptoms resolve. * Check Oxygen saturation; Oxygen at 2 L/min. via nasal cannula if less than 90% or clinical signs of respiratory distress. * Administer diphenhydramine (Benadryl) 25 mg IV STAT, (unless patient has received as pre-med). May repeat once, if necessary. * Solu-Cortef 250 mg IVP over 30-60 seconds, use 100 mg vials for each dissolution. * Epinephrine (1mg/1 ml) 0.3 mg subcutaneously or IVP now with any signs of respiratory distress. * Check with physician for new additional pre-med orders if patient is re- challenged or re-treated. [x] May remove PICC line when treatment complete, after confirming with Physician. [x] If the patient is admitted to the hospital, the ED, or transferred via [facility] , complete transfer form including medication reconciliation order sheet. Laboratory Tests Weekly Labs: CBC w/diff, Creatinine, CRP, LFT's (Hepatic function test) Additional Information Please draw weekly labs, call with abnormals, change in clinical condition or problems to: Dr.Reba Bloom or or covering ID Physician Follow up appt: Patient to schedule follow up appt with Dr.Reba Bloom within 10 days post discharge. Follow up with PCP Follow up with other MDs as planned. Counseling: Counseled about medication side effects Counseled about PICC line care and hand hygiene. Aviva Silver MD Aug 13, 2017 15:33
--- NOTE | 2017-08-13 15:37 | HHI.IDPN ---
Subjective Subjective Remarks is a 76 y/o CM with PMHx of Chronic back pain s/p lumbar spine surgery with hardware in place. Patient also reports seeing a pain medicine physician with injection into ? epidural space in February 2017. 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 Patient past medical history is also significant for h/o CAD s/p CABG. With this background he presents to the [facility] ED with chief complaint of right lower quadrant pain of 2 days duration which starts in lower back and radiates forward. He describes the pain as 10/10 pain that mata like fire. Patient states that he was remodeling in an apartment on Sunday and did well all day. He went to bed that night and woke up around 4 AM on morning with severe right back pain that radiated to his right lower quadrant/suprapubic area. Patient states that the pain was so severe that he could not move any part of his body without feeling pain. He was finally able to get himself out of bed and took 2 Aleve pills but could not do much the entire day and could barely walk. The pain initially subsided and then started to get worse again such that his friend convinced him to come to the ER. He has not been ill prior to this incident and denies any sick contacts. Patient gives history of high grade fevers 101 F prior to admission with chills. On admission, patient met sepsis criteria with WBC 17.2, HR 99 and sepsis workup initiated. Blood cultures drawn on admission positive for MSSA ID consulted for evaluation and Mment of MSSA bacteremia. On admission had CT Abd pelvis which did not help identify any acute process. Due to persistent back pain and acute retention of urine overnight patient underwent an MRI L spine and sacrum which showed spinal stenosis but no epidural abscess or discitis. Neurosurgery eval is pending. Overnight events reviewed. No fever No rash No diarrhea BCX 2nd set 08/03, 08/04, 08/05,08/07 are positive for MSSA or GP cocci likely MSSA on subsequent ones. MRI spine negative WBC scan negative. 2D ECHO negative. ORTIZ positive for endocarditis. Antibiotics Ancef IV Lines Line sites with no e.o infection Past Medical History Lumbar spine surgery with hardware in place. Chronic back pain with h/o cortisone injections. Allergies: Coded Allergies: No Known Allergies (Unverified , 08/03/17) Objective . Vital Signs Date Time Temp Pulse Resp B/P (MAP) Pulse Ox O2 Delivery O2 Flow Rate FiO2 08/13/17 12:00 98.5 60 19 122/67 (85) 100 08/13/17 11:10 52 08/13/17 11:02 Room Air 08/13/17 08:00 98.4 54 19 116/63 (80) 97 08/13/17 04:00 Room Air 08/13/17 04:00 98.5 62 17 122/66 (84) 96 08/13/17 00:00 Room Air 08/13/17 00:00 98.8 55 17 120/58 (78) 96 08/12/17 20:06 59 08/12/17 20:00 Room Air 08/12/17 20:00 98.4 58 17 133/93 (106) 97 08/12/17 16:00 98.2 74 18 109/59 (76) 100 . Laboratory Tests Test 08/12/17 07:00 08/13/17 06:30 White Blood Count 9.4 TH/MM3 8.7 TH/MM3 Red Blood Count 3.73 MIL/MM3 3.73 MIL/MM3 Hemoglobin 11.1 GM/DL 11.0 GM/DL Hematocrit 32.6 % 32.7 % Mean Corpuscular Volume 87.5 FL 87.8 FL Mean Corpuscular Hemoglobin 29.9 PG 29.4 PG Mean Corpuscular Hemoglobin Concent 34.1 % 33.5 % Red Cell Distribution Width 13.9 % 14.2 % Platelet Count 265 TH/MM3 271 TH/MM3 Mean Platelet Volume 7.9 FL 8.2 FL Laboratory Tests Test 08/12/17 07:00 08/13/17 06:36 Blood Urea Nitrogen 14 MG/DL 12 MG/DL Creatinine 0.92 MG/DL 0.86 MG/DL Random Glucose 95 MG/DL 93 MG/DL Calcium Level 8.6 MG/DL 8.8 MG/DL Sodium Level 139 MEQ/L 140 MEQ/L Potassium Level 4.2 MEQ/L 4.0 MEQ/L Chloride Level 104 MEQ/L 104 MEQ/L Carbon Dioxide Level 27.2 MEQ/L 26.5 MEQ/L Anion Gap 8 MEQ/L 10 MEQ/L Estimat Glomerular Filtration Rate 80 ML/MIN 86 ML/MIN Imaging Last Impressions Tumor Localization 08/05/17 0000 Signed Impressions: Service Date/Time: Saturday, August 05, 2017 13:19 - CONCLUSION: Negative for occult inflammatory process. Keyur Miguel MD FACR Sacrum/Coccyx MRI 08/04/17 0832 Signed Impressions: Service Date/Time: Friday, August 04, 2017 11:18 - CONCLUSION: 1. Prostatomegaly with BPH. 2. Abnormal appearance of the right peripheral zone. Correlation with PSA is suggested. 3. Normal sacrum and coccyx. 4. No evidence of focal bony lesions or local regional lymphadenopathy. Haroon Strauss MD Lumbar Spine MRI 08/04/17 0832 Signed Impressions: Service Date/Time: Friday, August 04, 2017 11:18 - CONCLUSION: 1. Moderate to severe central spinal stenosis at L1-2, L2-3 and L4-5 as described. 2. Postsurgical changes at L3 and L4 following laminectomy and fusion. 3. Mild inflammatory arthropathy of the right L1-2 facet joint. 4. Mild to moderate degenerative disc disease. 5. No evidence of acute disc herniation or abnormal bony enhancement. Haroon Strauss MD Chest X-Ray 08/04/17 0000 Signed Impressions: Service Date/Time: Friday, August 04, 2017 15:42 - CONCLUSION: No acute cardiopulmonary process. Jorje Gallegos MD Abdomen/Pelvis CT 08/03/17 0955 Signed Impressions: Service Date/Time: Thursday, August 03, 2017 11:14 - CONCLUSION: 1. No drainable fluid collection/abscess status post appendectomy. 2. Marginally prominent jejunal loops consistent with mild adynamic ileus. 3. Ancillary findings, as above. Javi Renee MD Abdomen Ultrasound 08/03/17 0000 Signed Impressions: Service Date/Time: Thursday, August 03, 2017 13:35 - CONCLUSION: Unremarkable. Etiology for abdominal pain is not evident. Keyur Miguel MD FACR Physical Exam GENERAL: This is a well-nourished, well-developed patient, in no apparent distress. SKIN: No rashes, ecchymoses or lesions. Cool and dry. HEAD: Atraumatic. Normocephalic. No temporal or scalp tenderness. EYES: Pupils equal round and reactive. Extraocular motions intact. No scleral icterus. No injection or drainage. ENT: Nose without bleeding, purulent drainage or septal hematoma. Throat without erythema, tonsillar hypertrophy or exudate. Uvula midline. Airway patent. NECK: Trachea midline.Supple, nontender, no meningeal signs. CARDIOVASCULAR: Regular rate and rhythm without murmurs, gallops, or rubs. RESPIRATORY: Clear to auscultation. Breath sounds equal bilaterally. No wheezes , rales, or rhonchi. GASTROINTESTINAL: Abdomen soft, non-tender, nondistended. MUSCULOSKELETAL: Extremities without clubbing, cyanosis, or edema. On left knee at level of knee chronic swelling at level of bursa with no obvious signs of infection. Back: surgical scar intact. Tenderness at approx middle of surgical scar. NEUROLOGICAL: Awake and alert. Grossly non focal. Psych cooperative IV line sites with no e.o infection. Assessment & Plan Remarks Sepsis present on admission MSSA bacteremia Aortic valve endocarditis Abrasion on right toney of tibia: not large enough to explain high grade bacteremia. Acute worsening of lumbar back pain (? epidural vs early discitis) Chronic back pain (h/o spinal injections last one in February 2017) Acute retention of urine (BPH related vs Nerve compression from spinal pathology ) Spinal stenosis on imaging. Recs Continue Ancef 2 gm IV q8hrs for MSSA endocarditis. Post hospital infusion orders in EM[facility]. apolinar Real. Pump preferred for Ancef if approved by insurance. Follow cultures: ok to place PICC in am if blood cultures remain negative. Follow clinically. Once antibiotics arranged and PICC placed (BCX negative condition) can be discharged from ID standpoint. Will sign off please call back if any change in clinical condition or questions. Aviva Silver MD Aug 13, 2017 15:37
[2017-08-13] MEDS ORDERED: WARFARIN SOD 4 MG TAB PO SCH (16:00)
[2017-08-13] MEDS: ATORVASTATIN 20 MG TAB PO SCH (20:28)
[2017-08-13] MEDS: ACETAMINOPHEN/HYDROcodone 325 MG/5 MG TAB PO PRN (20:50)
[2017-08-14] VITALS (7 sets, daily range): BP systolic 114–134; BP diastolic 59–83; PULSE 61–81; RESP 16–18; TEMP 97.7–99.3; O2SAT 95–97
[2017-08-14 00:06] LABS: APTT (PATIENT) 69.9 SEC (24.3-30.1)
[2017-08-14] MEDS: ceFAZolin 2 GM PREMIX 50 ML IV SCH ×3 (00:26→16:46)
[2017-08-14] MEDS: HEPARIN-D5W 25,000 U/250 ML 250 ML IV PRN (00:32)
[2017-08-14 06:50] LABS: HEMATOCRIT 33.2 % (39.0-51.0); MEAN CELL VOLUME 87.4 FL (80.0-100.0); MEAN CORPUSCULAR HEMOGLOBIN 30.1 PG (27.0-34.0); MEAN CORPUSCULAR HGB CONC 34.4 % (32.0-36.0); PLATELET COUNT 272 TH/MM3 (150-450); RED CELL DISTRIBUTION WIDTH 14.4 % (11.6-17.2); REVIEW FLAG FINAL; WHITE BLOOD COUNT 9.3 TH/MM3 (4.0-11.0)
[2017-08-14 07:17] LABS: APTT (PATIENT) 78.4 SEC (24.3-30.1); INTERNATIONAL NORMALIZED RATIO 2.2 RATIO; PROTHROMBIN TIME - PATIENT 25.2 SEC (9.8-11.6)
[2017-08-14 07:22] LABS: BICARBONATE 27.4 MEQ/L (21.0-32.0); POTASSIUM 4.1 MEQ/L (3.5-5.1)
[2017-08-14] MEDS: SODIUM CHLORIDE 0.9% FLUSH 10 ML FLUSH IV FLUSH SCH ×2 (07:25→19:51)
[2017-08-14] MEDS: DOCUSATE SODIUM 50 MG/SENNA 8.6 MG TAB PO SCH ×2 (08:27→19:51)
[2017-08-14] MEDS: VITAMIN E 400 UNIT CAP PO SCH (08:27)
[2017-08-14] MEDS: DIGOXIN 0.125 MG TAB PO SCH (08:28)
[2017-08-14] MEDS: TAMSULOSIN HCL 0.4 MG CAP PO SCH ×2 (08:28→19:51)
[2017-08-14] MEDS: PANTOPRAZOLE SOD 40 MG DELAYED RELEASE TAB PO SCH (08:28)
[2017-08-14] MEDS: METOPROLOL TARTRATE 25 MG TAB PO SCH ×2 (08:28→19:51)
[2017-08-14] MEDS: ASPIRIN 81 MG CHEW TAB CHEW SCH (08:28)
[2017-08-14] MEDS: CHOLECALCIFEROL (VIT D3) 1000 UNIT TAB PO SCH (08:28)
--- NOTE | 2017-08-14 08:28 | HHI.FPPN ---
Subjective Remarks Pt is doing well this morning and excited at the possibility of going home. He denies fever, shortness of breath, or abdominal pain. he is no longer in AFIB. The only issue is pain in his right ankle after undergoing an extended period of physical therapy yesterday. he states that an hour after, he could hardly move his ankle due to pain and was having continued crackling. The pain has reduced this morning with ice and elevation. (Imelda Zeng MD R2) Objective Vitals Vital Signs Date Time Temp Pulse Resp B/P (MAP) Pulse Ox O2 Delivery O2 Flow Rate FiO2 08/14/17 05:23 97.7 61 18 121/68 (85) 96 08/14/17 05:23 Room Air 08/13/17 23:15 Room Air 08/13/17 23:15 98.5 62 18 107/54 (71) 95 08/13/17 20:10 61 08/13/17 19:30 98.3 65 18 134/71 (92) 97 08/13/17 19:30 Room Air 08/13/17 16:00 98.7 62 19 124/66 (85) 100 08/13/17 12:00 98.5 60 19 122/67 (85) 100 08/13/17 11:10 52 08/13/17 11:02 Room Air I/O 08/13/17 08/13/17 08/13/17 08/14/17 08/14/17 08/14/17 07:00 15:00 23:00 07:00 15:00 23:00 Intake Total 1077 ml 420 ml 1152 ml Output Total 1050 ml 1000 ml 1575 ml Balance 27 ml -580 ml -423 ml Intake Oral 840 ml 420 ml 960 ml IV Total 237 ml 192 ml Output Urine Total 1050 ml 1000 ml 1575 ml # Bowel Movements 0 1 0 (EkImelda orozco MD R2) Result Diagram: 08/14/1752908/14/1730 Objective Remarks GENERAL: WDWN elderly male patient laying in bed and sitting up in no acute distress SKIN: Has abrasions on bilateral knees that are resolving. No rashes noted. HEENT: Normocephalic, atraumatic, no nasal discharge. No oral sores. NECK: Supple, no meningeal signs, no lymphadenopathy. Trachea midline. CARDIOVASCULAR: Regular rate and regular rhythm without murmur, gallop, or rub. Peripheral pulses and capillary refill wnl. RESPIRATORY: Clear to auscultation in all lung rojas. Breath sounds equal bilaterally. No wheezes, rales, or rhonchi. No increased WOB. GASTROINTESTINAL: No tenderness to palpation of the abdomen. Normal BS with no guarding or rigidity. MSK: Normal range of motion of right ankle, no swelling or erythema of skin observed around the ankle, however cracking sound with motion of the ankle; Moves all extremities spontaneously with good coordination. Neuro: Awake, alert, PERRLA, EOMI, normal strength and sensation distally. Procedures Transesophageal ECHO - 08/07/17 (Imelda Zeng MD R2) A/P Assessment and Plan 76-year-old male presented on 08/03/17 with right lower quadrant/right groin pain, met sepsis criteria with unknown source, since then proven bacteremia with blood cultures positive for MSSA 08/03-08/07; ORTIZ 08/07 with aortic valve vegetation indicating MSSA endocarditis; being followed by Dr Silver, ID, and treated with Ancef IV with addition of Gentamicin on 08/07 for synergy. New onset atrial fibrillation with RVR likely 2/2 bacteremia that is being managed with metoprolol and digoxin; acute urinary retention which has resolved. Infectious disease, neurosurgery, urology, and cardiology were consulted. PT indicates pt to discharge home with no PT. Per ID, blood cx must be negative for 5 days before pt can be discharged with IV antibiotics to be administered as an outpatient. Pt is stable and improving. GOALS Today: 08/14: 1. Continue to trend blood cx from 08/10 that are NGTD--per ID, Dr Silver, cx must be infection free for 5 days before discharge with IV abx, but is okay to discharge him home today 2. Continue Coumadin bridge 3. Digoxin level 0.8 08/[address] Rojo Discharge Planning Pending resolution of bacteremia, good heart rate control, anticoagulated appropriately, and discharge recommendations infectious disease. (Imelda Zeng MD R2) Attending Attestation Patient seen and examined. Case reviewed and discussed Agree with plan of care as discussed with me and documented in the resident note. Plan for d/c heparin gtt, place PICC line. CM arranged HHC for infusion of antibiotics per Dr. Silver recs. (Ana Rojo MD) Problem List: (1) Sepsis ICD Codes: A41.9 - Sepsis, unspecified organism Status: Acute Plan: Initially meeting sepsis criteria with leukocytosis and fevers, positive blood cultures with MSSA. Lactate normal. Elevated pulse, found to be in atrial fibrillation with RVR. Maintaining normal blood pressures, otherwise hemodynamically stable. Now afebrile >48hours. On admit, UA that is bloody but no nitrites or leukocyte esterase. MRI of lumbar and sacral spine not showing any epidural abscess from Hx of corticosteroid injections in lower back, or sign of osteomyelitis/infected metal hardware from spinal fusion >10years ago. CT abdomen showing no source of infection. Has abrasions on knees that could be source of possible entrance. No history of IV drug use. - UA and CXR neg - Continue Ancef 2 g IV started 08/04/17 - Continue Gentamicin IV started 08/08 - Gentamicin peak/trough as per ID - WBC 8.1 and has been wnl since 08/04 @ 11.4 - Blood cx: trending until free of infection -- positive MSSA 08/03-08/07; cx from 08/10/17 NGTD - Per Dr Silver: require 5 days of infection-free cx before discharge with outpatient IV antibiotics - discharge - ID, Dr Silver following, appreciate recs - 2D ECHO with mild tricuspid regurgitation, mild to moderate mitral valve regurgitation, and moderate left atrial dilation, no mention of vegetations - Dr Arrieta, Cardiology, performed ORTIZ 08/07 - with aortic valve thrombus vs vegetation - Xray: Left knee w/no s/s of infection; Right knee with small effusion and tricompartmental osteoarthritis (2) Afib ICD Codes: I48.91 - Unspecified atrial fibrillation Plan: - Continue Metoprolol tartrate 25 mg q12h - Coumadin bridge - INR 2.2 today, within therapeutic limit - Digoxin 0.125mg daily after loading doses on 08/09: 0.5mg @1745, 0.25mg @2200 , 0.25mg @0352 - Digoxin trough 2.5 @ 0458 08/10; 1.2 on 08/11; 0.8 08/13; (3) Right ankle pain ICD Codes: M25.571 - Pain in right ankle and joints of right foot Plan: -Patient reports acute right ankle pain one hour after completing physical therapy exercises -He was unable to bear weight but pain is much improved this morning with ice and elevation -Will check x-ray of right ankle (4) Constipation ICD Codes: K59.00 - Constipation, unspecified Status: Resolved Plan: -Patient reports having problems with chronic constipation but much improved in the last few days -Currently on severe constipation regimen with additional fleets enema with mineral oil PRN -Missy-colace 1 tab BID scheduled (5) Chronic Medical Problems Status: Chronic Plan: Hypertension: Holding valsartan and hydrochlorothiazide, normotensive BPH: Flomax 0.4mg PO HS AFIB: Metoprolol tartrate 25mg q12h as above HLD: Atorvastatin 20mg qhs PO (6) FEN/DVT PPX/GI PPX/Nursing Orders Plan: Fluids: holding IVF Electrolytes: Will monitor and replace as needed Nutrition: Heart healthy diet DVT Prophylaxis: On heparin drip with bridge to warfarin GI Prophylaxis: Protonix 40mg PO daily Constipation prophylaxis: Pericolace 1 tab PO BID scheduled, milk of magnesia PRN, lactulose, Fleet's enema PRN Medications Tylenol 650 mg by mouth every 4 hours when necessary pain 1-10 or temperature greater than 100.4F Zofran 4 mg IV push every 6 hours when necessary nausea vomiting [place] 325-5 mg 1 tab by mouth every 6 hours when necessary pain 5-7 [place] 325-10 mg 1 tab by mouth every 6 hours when necessary pain 8-10 -Vitals Q4h -Monitor I's and O's -classroom monitor with telemetry with continuous vital signs -Activity OOB with assistance -PT to assist with ambulation and strengthening exercises -Case management consult to assist with discharge disposition (Imelda Zeng MD R2) Problem Qualifiers (1) Sepsis: Qualified Codes: A41.01 - Sepsis due to methicillin susceptible Staphylococcus aureus (2) Right ankle pain: Qualified Codes: M25.571 - Pain in right ankle and joints of right foot Imelda Zeng MD R2 Aug 14, 2017 08:28 Ana Rojo MD Aug 14, 2017 15:31
--- NOTE | 2017-08-14 10:40 | RADRPT ---
EXAM DATE/TIME: 08/14/2017 10:26 [facility] COMPARISON: No previous studies available for comparison. INDICATIONS : Right ankle pain & decreased range of motion. No apparent injury other than routine physical therapy session yesterday. MEDICAL HISTORY : Hypertension. Hypercholesterolemia. Cerebral vascular accident. Coronary artery disease. SURGICAL HISTORY : Cholecystectomy. Orthopedic surgery. CABG. ENCOUNTER: Initial ACUITY: 1 day PAIN SCORE: 8/10 LOCATION: Right ankle FINDINGS: Three view exam was performed of the right ankle. The bony structures are in normal alignment. There some spurring of the anterior tibial articular surface. Prominent ossification at the Achilles inser tion and a prominent plantar spur. Ossification of the intraosseous ligament of the distal tib-fib ольга int. No acute fracture No evidence of fracture, dislocation, or soft tissue swelling. The ankle mort ise is intact. No radiopaque foreign bodies are seen. Bony mineralization is normal. CONCLUSION: Unremarkable examination of the right ankle with multiple areas of chronic arthritic change. Seamus Tena MD on August 14, 2017 at 10:38 Board Certified Radiologist. This report was verified electronically.
[2017-08-14] MEDS ORDERED: TAMS5CAP PO (10:54)
[2017-08-14] MEDS ORDERED: COUM3TAB PO (10:54)
[2017-08-14] MEDS ORDERED: DIGO0.12 PO (10:54)
--- NOTE | 2017-08-14 10:55 | HHI.DCPOC ---
Discharge Care Plan Diagnosis: (1) Atrial fibrillation with RVR (2) Aortic valve endocarditis (3) Sepsis (4) Thrombocytopenia (5) Constipation (6) Urinary retention Goals to Promote Your Health * To prevent worsening of your condition and complications * To maintain your health at the optimal level Directions to Meet Your Goals Take your medications as prescribed Follow your dietary instruction Follow activity as directed Keep your appointments as scheduled Take your immunizations and boosters as scheduled If your symptoms worsen call your PCP, if no PCP go to Urgent Care Center or Emergency Room Smoking is Dangerous to Your Health. Avoid second hand smoke Call the 24-hour hour crisis hotline for domestic abuse at Imelda Zeng MD R2 Aug 14, 2017 10:55
[2017-08-14] MEDS ORDERED: ASPI-516 CHEW (12:19)
--- NOTE | 2017-08-14 12:25 | HHI.FF ---
Face to Face Verification Diagnosis: (1) Atrial fibrillation with RVR (2) Right ankle pain (3) Constipation (4) Urinary retention (5) Lumbar stenosis (6) BPH (benign prostatic hyperplasia) (7) Aortic valve endocarditis (8) Anticoagulated on warfarin Home Health Nursing Order: Medical education Signs/symptoms of disease process Medication education-adverse effect Nursing assessment with vital signs Instructions: Patient would need help with administration of IV antibiotics, PT/INR checks, and Digoxin levels I have seen patient Bruce Bradshaw on 08/14/17. My clinical findings support the need for the requested home health care services because: Infection w/ risk of complications Injectable med education/admin I certify that my clinical findings support that this patient is homebound because: Need for psychosocial assistance Poor cardiac reserve Imelda Zeng MD R2 Aug 14, 2017 12:25
[2017-08-14] MEDS ORDERED: METO25TA3 PO (14:19)
[2017-08-14] MEDS ORDERED: HYDR-3516 PO (14:21)
[2017-08-14] MEDS ORDERED: WARFARIN SOD 3 MG TAB PO SCH (16:00)
[2017-08-14] MEDS: ATORVASTATIN 20 MG TAB PO SCH (19:51)
--- NOTE | 2017-08-14 21:15 | HHI.DS ---
Imelda Zeng MD R2 08/14/17 2115: Discharge Summary Admission Date Aug 03, 2017 at 15:59 Discharge Date: Aug 15, 2017 Admitting Diagnosis Bacteremia (1) Sepsis Diagnosis: Principal ICD Codes: A41.9 - Sepsis, unspecified organism Status: Acute (2) Afib Diagnosis: Principal ICD Codes: I48.91 - Unspecified atrial fibrillation (3) Right ankle pain Diagnosis: Secondary ICD Codes: M25.571 - Pain in right ankle and joints of right foot (4) Constipation Diagnosis: Secondary ICD Codes: K59.00 - Constipation, unspecified Status: Resolved Procedures Transesophageal ECHO - 08/07/17 Brief History Patient is a 76-year-old male with a past medical history of CAD status post 5-vessel CABG, hyperlipidemia, and hypertension that presents to the [place] ED with a chief complaint of right lower quadrant pain of 2 days duration. He describes the pain as 10/10 pain that mata like fire. Patient states that he was remodeling in an apartment on Wednesday 08/01 and did well all day. He went to bed that night and woke up around 4 AM on morning with severe right back pain that radiated to his right lower quadrant/ suprapubic area. Patient states that the pain was so severe that he could not move any part of his body without feeling pain. He was finally able to get himself out of bed and took 2 Aleve pills but could not do much the entire day and could barely walk. The pain initially subsided and then started to get worse again such that his friend convinced him to come to the ER. He has not been ill prior to this incident and denies any sick contacts. CBC/BMP: 08/14/17 0530 08/14/17 0530 Significant Findings Laboratory Tests Test 08/12/17 07:00 08/12/17 13:59 08/13/17 06:30 08/13/17 06:36 Red Blood Count 3.73 MIL/MM3 (4.50-5.90) 3.73 MIL/MM3 (4.50-5.90) Hemoglobin 11.1 GM/DL (13.0-17.0) 11.0 GM/DL (13.0-17.0) Hematocrit 32.6 % (39.0-51.0) 32.7 % (39.0-51.0) Prothrombin Time 13.2 SEC (9.8-11.6) 18.2 SEC (9.8-11.6) Activated Partial Thromboplast Time 75.2 SEC (24.3-30.1) 88.4 SEC (24.3-30.1) Estimat Glomerular Filtration Rate 80 ML/MIN (>89) 86 ML/MIN (>89) Test 08/13/17 16:06 08/13/17 23:41 08/14/17 05:30 Activated Partial Thromboplast Time 65.0 SEC (24.3-30.1) 69.9 SEC (24.3-30.1) 78.4 SEC (24.3-30.1) Red Blood Count 3.80 MIL/MM3 (4.50-5.90) Hemoglobin 11.4 GM/DL (13.0-17.0) Hematocrit 33.2 % (39.0-51.0) Prothrombin Time 25.2 SEC (9.8-11.6) Estimat Glomerular Filtration Rate 78 ML/MIN (>89) Digoxin Level 0.7 NG/ML (0.8-2.0) PE at Discharge GENERAL: WDWN elderly male patient sitting up in bed in no acute distress but seems uncomfortable SKIN: No new rashes noted. HEENT: Normocephalic, atraumatic, no nasal discharge. Mild erythema of posterior oropharynx NECK: Supple, no meningeal signs, mobile cervical lymphadenopathy. Trachea midline. CARDIOVASCULAR: Regular rate and regular rhythm without murmur, gallop, or rub. RESPIRATORY: Clear to auscultation in all lung rojas. Breath sounds equal bilaterally. No wheezes, rales, or rhonchi. No increased WOB. GASTROINTESTINAL: No tenderness to palpation of the abdomen. MSK: No swelling or erythema of skin observed around the ankle. Moves all extremities spontaneously with good coordination. Neuro: Awake and alert Hospital Course 76-year-old male presented on 08/03/17 with right lower quadrant/right groin pain, met sepsis criteria with unknown source, since then proven bacteremia with blood cultures positive for MSSA 08/03-08/07; ORTIZ 08/07 with aortic valve vegetation indicating MSSA endocarditis; was treated with Ancef IV with addition of Gentamicin on 08/07 for synergy. Patient also experienced new onset atrial fibrillation with RVR likely 2/2 bacteremia that was managed with metoprolol and digoxin as well as acute urinary retention which resolved. During his hospital stay, infectious disease, neurosurgery, urology, and cardiology were consulted and assisted with management. His repeat blood cultures were negative 5 days before he was discharged from the hospital with home health service to complete 6 weeks treatment with IV Ancef as an outpatient. A PICC line was placed to facilitate administration of his IV antibiotics. Patient is to follow-up with a PCP and other specialists as discussed below. Please see the medication section for new medications that were started during this hospital stay. Pt Condition on Discharge: Good Discharge Disposition: Disch w/ Home Health Serv Discharge Instructions DIET: Follow Instructions for: Heart Healthy Diet Activities you can perform: Weight Bearing as Kayla Follow up Referrals: Appointment for Follow Up - 10 Days @ [facility] with Dr.Reba Wofl Bloom Cardiology - 3 Weeks with Italo Duff MD Neurosurgery - 4 Weeks with Ari Rubin MD Orthopedics @ [facility] with Lu Billingsley MD PCP Follow-up - 1 Week Urology - 3 Weeks with Iván Villa MD New Orders: DIGOXIN - 2 Weeks PT/INR - 2-3 Days New Medications: Aspirin (Aspirin) 81 Mg Chew 81 MG CHEW DAILY, #30 TAB 0 Refills Cefazolin Inj (Cefazolin Inj) 1 Gm/50 Ml Bagp 2 GM IV Q8H for Endocarditis. for 42 Days, BAG 0 Refills Epinephrine Inj (Epinephrine Inj) 1 Mg/Ml (1 Ml) Inj 0.3 MG IV PUSH ONCE PRN for ALLERGIC REACTION, #1 VIAL Epinephrine Inj (Epinephrine Inj) 1 Mg/Ml (1 Ml) Inj 0.3 MG SQ ONCE PRN for ALLERGIC REACTION, #1 VIAL Give with any signs of respiratory distress. Hydrocortisone Inj (Solu-Cortef Inj) 250 Mg/2 Ml Inj 250 MG IV PUSH ONCE PRN for ALLERGIC REACTION, #1 VIAL 0 Refills Give over 30-60 seconds. Digoxin (Digoxin) 0.125 Mg Tab 0.125 MG PO DAILY for AFIB, #30 TAB Hydrocodone/Acetaminophen (Hydrocodone-Acetamin 5-325 mg) 5 Mg-325 Mg Tablet 1 TAB PO Q6HR PRN for PAIN SCALE 5 TO 10, #5 Metoprolol Tartrate (Metoprolol Tartrate) 25 Mg Tab 25 MG PO Q12HR for AFIB, #60 TAB Tamsulosin (Flomax) 0.4 Mg Cap 0.4 MG PO Q12HR, #60 CAP Warfarin (Coumadin) 3 Mg Tab 3 MG PO DAILY@1600 for AFIB, #30 TAB Continued Medications: Ascorbic Acid (Vitamin C) 250 Mg Tab 1000 MG PO for Nutritional Supplement, TAB 0 Refills Atorvastatin (Lipitor) 20 Mg Tab 20 MG PO HS for Cholesterol Management, #30 TAB 0 Refills Cholecalciferol (Vitamin D3) 1,000 Unit Cap 1000 UNITS PO DAILY for Nutritional Supplement, #1 BOTTLE 0 Refills Fish Oil-Cholecalciferol ([place]-3 Fish Oil/Vitamin) 1,000-1,000 Mg Cap 1 CAP PO DAILY for Nutritional Supplement, CAP 0 Refills Vitamin E (Vitamin E) 200 Unit Cap 500 UNITS PO DAILY for Nutritional Supplement, CAP 0 Refills Discontinued Medications: Aspirin (Aspirin) 81 Mg Chew 162 MG CHEW DAILY, TAB 0 Refills Hydrochlorothiazide (Hydrochlorothiazide) 12.5 Mg Tab 12.5 MG PO DAILY, #30 TAB 0 Refills Metoprolol Succinate ER 24 HR (Metoprolol Succinate ER 24 HR) 25 Mg Tab 12.5 MG PO HS, #30 TAB 0 Refills Valsartan (Diovan) 40 Mg Tab 40 MG PO DAILY, #60 TAB 0 Refills Ana Rojo MD 08/21/17 1009: Discharge Summary CBC/BMP: 08/14/17 0530 08/14/17 0530 Discharge Instructions Follow up Referrals: Appointment for Follow Up - 10 Days @ [facility] with Dr.Reba Wolf Bloom Cardiology - 3 Weeks with Italo Duff MD Neurosurgery - 4 Weeks with Ari Rubin MD Orthopedics @ [facility] with Lu Billingsley MD PCP Follow-up - 1 Week Urology - 3 Weeks with Iván Villa MD New Orders: DIGOXIN - 2 Weeks PT/INR - 2-3 Days New Medications: Aspirin (Aspirin) 81 Mg Chew 81 MG CHEW DAILY, #30 TAB 0 Refills Cefazolin Inj (Cefazolin Inj) 1 Gm/50 Ml Bagp 2 GM IV Q8H for Endocarditis. for 42 Days, BAG 0 Refills Epinephrine Inj (Epinephrine Inj) 1 Mg/Ml (1 Ml) Inj 0.3 MG IV PUSH ONCE PRN for ALLERGIC REACTION, #1 VIAL Epinephrine Inj (Epinephrine Inj) 1 Mg/Ml (1 Ml) Inj 0.3 MG SQ ONCE PRN for ALLERGIC REACTION, #1 VIAL Give with any signs of respiratory distress. Hydrocortisone Inj (Solu-Cortef Inj) 250 Mg/2 Ml Inj 250 MG IV PUSH ONCE PRN for ALLERGIC REACTION, #1 VIAL 0 Refills Give over 30-60 seconds. Digoxin (Digoxin) 0.125 Mg Tab 0.125 MG PO DAILY for AFIB, #30 TAB Hydrocodone/Acetaminophen (Hydrocodone-Acetamin 5-325 mg) 5 Mg-325 Mg Tablet 1 TAB PO Q6HR PRN for PAIN SCALE 5 TO 10, #5 Metoprolol Tartrate (Metoprolol Tartrate) 25 Mg Tab 25 MG PO Q12HR for AFIB, #60 TAB Tamsulosin (Flomax) 0.4 Mg Cap 0.4 MG PO Q12HR, #60 CAP Warfarin (Coumadin) 3 Mg Tab 3 MG PO DAILY@1600 for AFIB, #30 TAB Continued Medications: Ascorbic Acid (Vitamin C) 250 Mg Tab 1000 MG PO for Nutritional Supplement, TAB 0 Refills Atorvastatin (Lipitor) 20 Mg Tab 20 MG PO HS for Cholesterol Management, #30 TAB 0 Refills Cholecalciferol (Vitamin D3) 1,000 Unit Cap 1000 UNITS PO DAILY for Nutritional Supplement, #1 BOTTLE 0 Refills Fish Oil-Cholecalciferol ([place]-3 Fish Oil/Vitamin) 1,000-1,000 Mg Cap 1 CAP PO DAILY for Nutritional Supplement, CAP 0 Refills Vitamin E (Vitamin E) 200 Unit Cap 500 UNITS PO DAILY for Nutritional Supplement, CAP 0 Refills Discontinued Medications: Aspirin (Aspirin) 81 Mg Chew 162 MG CHEW DAILY, TAB 0 Refills Hydrochlorothiazide (Hydrochlorothiazide) 12.5 Mg Tab 12.5 MG PO DAILY, #30 TAB 0 Refills Metoprolol Succinate ER 24 HR (Metoprolol Succinate ER 24 HR) 25 Mg Tab 12.5 MG PO HS, #30 TAB 0 Refills Valsartan (Diovan) 40 Mg Tab 40 MG PO DAILY, #60 TAB 0 Refills Imelda Zeng MD R2 Aug 14, 2017 21:15 Ana Rojo MD Aug 21, 2017 10:09
[2017-08-15] MEDS: ceFAZolin 2 GM PREMIX 50 ML IV SCH ×2 (00:21→08:25)
[2017-08-15 05:02] VITALS: BP 113/64; PULSE 70; RESP 16; TEMP 99.1; O2SAT 96
[2017-08-15 06:03] LABS: APTT (PATIENT) 38.3 SEC (24.3-30.1); PROTHROMBIN TIME - PATIENT 23.1 SEC (9.8-11.6)
--- NOTE | 2017-08-15 07:25 | HHI.FPPN ---
Subjective Remarks Pt states that he does not feel very well this morning - in fact, he feels like he felt 4 days ago and is wondering if the one antibiotic is enough. His temperature was up overnight with a low-grade fever and he feels very sweaty. He also complains of excruciating pain in his right ankle. The PICC line was not placed yesterday. Addendum: Later in the afternoon, the patient felt much better and felt ready to go home. The PICC line was placed and his discharge was processed. He would be staying with close family int he area who would assist him with any needs. (Imelda Zeng MD R2) Objective Vitals Vital Signs Date Time Temp Pulse Resp B/P (MAP) Pulse Ox O2 Delivery O2 Flow Rate FiO2 08/15/17 05:02 99.1 70 16 113/64 (80) 96 08/14/17 23:13 99.3 61 16 115/62 (79) 96 08/14/17 19:56 Room Air 08/14/17 19:56 66 08/14/17 19:20 99.3 81 16 114/68 (83) 95 08/14/17 16:00 98.1 64 18 134/83 (100) 96 08/14/17 12:00 97.8 62 18 116/59 (78) 96 08/14/17 08:00 97.7 63 18 116/71 (86) 97 I/O 08/14/17 08/14/17 08/14/17 08/15/17 08/15/17 08/15/17 07:00 15:00 23:00 07:00 15:00 23:00 Intake Total 1152 ml 1264 ml 410 ml Output Total 1575 ml 1825 ml Balance -423 ml 1264 ml -1415 ml Intake Oral 960 ml 1200 ml 360 ml IV Total 192 ml 64 ml 50 ml Output Urine Total 1575 ml 1825 ml # Voids 5 # Bowel Movements 0 0 (Imelda Zeng MD R2) Result Diagram: 08/14/1730 08/15/17424 Objective Remarks GENERAL: WDWN elderly male patient sitting up in bed in no acute distress but seems uncomfortable SKIN: No new rashes noted. HEENT: Normocephalic, atraumatic, no nasal discharge. Mild erythema of posterior oropharynx NECK: Supple, no meningeal signs, mobile cervical lymphadenopathy. Trachea midline. CARDIOVASCULAR: Regular rate and regular rhythm without murmur, gallop, or rub. RESPIRATORY: Clear to auscultation in all lung rojas. Breath sounds equal bilaterally. No wheezes, rales, or rhonchi. No increased WOB. GASTROINTESTINAL: No tenderness to palpation of the abdomen. MSK: No swelling or erythema of skin observed around the ankle. Moves all extremities spontaneously with good coordination. Neuro: Awake and alert Procedures Transesophageal ECHO - 08/07/17 (Imelda Zeng MD R2) A/P Assessment and Plan 76-year-old male presented on 08/03/17 with right lower quadrant/right groin pain, met sepsis criteria with unknown source, since then proven bacteremia with blood cultures positive for MSSA 08/03-08/07; ORTIZ 08/07 with aortic valve vegetation indicating MSSA endocarditis; being followed by Dr Silver, ID, and treated with Ancef IV with addition of Gentamicin on 08/07 for synergy. New onset atrial fibrillation with RVR likely 2/2 bacteremia that is being managed with metoprolol and digoxin; acute urinary retention which has resolved. Infectious disease, neurosurgery, urology, and cardiology were consulted. PT indicates pt to discharge home with no PT. Per ID, blood cx must be negative for 5 days before pt can be discharged with IV antibiotics to be administered as an outpatient. Discussed with Dr. Rojo Discharge Planning Pt was deemed stable for discharge on 08/14 but had to stay due to complications with home health and non-placement of the PICC line. (Imelda Zeng MD R2) Attending Attestation Patient seen and examined. Case reviewed and discussed Agree with plan of care as discussed with me and documented in the resident note. (Ana Rojo MD) Problem List: (1) Sepsis ICD Codes: A41.9 - Sepsis, unspecified organism Status: Acute Plan: Initially meeting sepsis criteria with leukocytosis and fevers, positive blood cultures with MSSA. Lactate normal. Elevated pulse, found to be in atrial fibrillation with RVR. Maintaining normal blood pressures, otherwise hemodynamically stable. Now afebrile >48hours. On admit, UA that is bloody but no nitrites or leukocyte esterase. MRI of lumbar and sacral spine not showing any epidural abscess from Hx of corticosteroid injections in lower back, or sign of osteomyelitis/infected metal hardware from spinal fusion >10years ago. CT abdomen showing no source of infection. Has abrasions on knees that could be source of possible entrance. No history of IV drug use. - UA and CXR neg - Dr Arrieta, Cardiology, performed ORTIZ 08/07 - with aortic valve thrombus vs vegetation - Continue Ancef 2 g IV started 08/04/17 until September 20, 2017 - WBC increased to 12.2 today with low-grade fever of 99.1 - with throat erythema and lymphadenopathy, most probable cause is a viral infection - Will check adult respiratory panel - Blood cx from 08/10/17 NGTD (2) Afib ICD Codes: I48.91 - Unspecified atrial fibrillation Plan: - Continue Metoprolol tartrate 25 mg q12h - Coumadin bridge completed - INR 2.2 on 08/15, within therapeutic limit - Continue Coumadin 3.0 mg daily - Continue Digoxin 0.125mg daily for ryhtmn control (3) Right ankle pain ICD Codes: M25.571 - Pain in right ankle and joints of right foot Plan: -Patient reports acute right ankle pain one hour after completing physical therapy exercises on 08/13 -He was initially unable to bear weight but pain is improved with ice -X-ray of right ankle on 08/14 negative for fracture -[employer] consulted for ankle stabilizing brace (4) Constipation ICD Codes: K59.00 - Constipation, unspecified Status: Resolved Plan: -Patient reports having problems with chronic constipation but much improved and is now regular -Continue prn constipation meds as needed -Missy-colace 1 tab BID scheduled (5) Chronic Medical Problems Status: Chronic Plan: AFIB/HTN: Metoprolol tartrate 25mg q12h as above BPH: Flomax 0.4mg PO HS HLD: Atorvastatin 20mg qhs PO (6) FEN/DVT PPX/GI PPX/Nursing Orders Plan: Fluids: Oral fluids Electrolytes: Will monitor and replace as needed Nutrition: Heart healthy diet DVT Prophylaxis: Warfarin 3mg PO daily GI Prophylaxis: Protonix 40mg PO daily Constipation prophylaxis: Pericolace 1 tab PO BID scheduled, milk of magnesia PRN, lactulose, Fleet's enema PRN Medications Tylenol 650 mg by mouth every 4 hours when necessary pain 1-10 or temperature greater than 100.4F Zofran 4 mg IV push every 6 hours when necessary nausea vomiting [place] 325-5 mg 1 tab by mouth every 6 hours when necessary pain 5-7 [place] 325-10 mg 1 tab by mouth every 6 hours when necessary pain 8-10 -Vitals Q4h -Monitor I's and O's -Activity OOB with assistance -PT assisting with ambulation and strengthening exercises -Case management assisting with discharge disposition (Imelda Zeng MD R2) Problem Qualifiers (1) Sepsis: Qualified Codes: A41.01 - Sepsis due to methicillin susceptible Staphylococcus aureus (2) Right ankle pain: Qualified Codes: M25.571 - Pain in right ankle and joints of right foot Imelda Zeng MD R2 Aug 15, 2017 07:25 Ana Rojo MD Aug 21, 2017 10:10
[2017-08-15] MEDS: SODIUM CHLORIDE 0.9% FLUSH 10 ML FLUSH IV FLUSH SCH (07:56)
[2017-08-15 08:00] VITALS: BP 111/65; PULSE 88; RESP 20; TEMP 99.1; O2SAT 95
[2017-08-15] MEDS: PANTOPRAZOLE SOD 40 MG DELAYED RELEASE TAB PO SCH (08:22)
[2017-08-15] MEDS: CHOLECALCIFEROL (VIT D3) 1000 UNIT TAB PO SCH (08:25)
[2017-08-15] MEDS: METOPROLOL TARTRATE 25 MG TAB PO SCH (08:25)
[2017-08-15] MEDS: VITAMIN E 400 UNIT CAP PO SCH (08:25)
[2017-08-15] MEDS: ASPIRIN 81 MG CHEW TAB CHEW SCH (08:25)
[2017-08-15] MEDS: DIGOXIN 0.125 MG TAB PO SCH (08:25)
[2017-08-15] MEDS: DOCUSATE SODIUM 50 MG/SENNA 8.6 MG TAB PO SCH (08:25)
[2017-08-15] MEDS: TAMSULOSIN HCL 0.4 MG CAP PO SCH (08:26)
[2017-08-15 08:34] LABS: AUTOMATED NEUTROPHIL # 8.7 TH/MM3 (1.8-7.7); BASOPHIL # 0.1 TH/MM3 (0-0.2); BASOPHIL % 0.5 % (0.0-2.0); EOSINOPHIL # 0.1 TH/MM3 (0-0.4); EOSINOPHIL % 0.5 % (0.0-4.0); HEMATOCRIT 36.8 % (39.0-51.0); HEMO FLAGS DIFF FINAL; LYMPH % 18.7 % (9.0-44.0); LYMPHOCYTE # 2.3 TH/MM3 (1.0-4.8); MEAN CELL VOLUME 87.4 FL (80.0-100.0); MEAN CORPUSCULAR HEMOGLOBIN 29.4 PG (27.0-34.0); MEAN CORPUSCULAR HGB CONC 33.6 % (32.0-36.0); MONO % 8.7 % (0.0-8.0); NEUT % 71.6 % (16.0-70.0); PLATELET COUNT 331 TH/MM3 (150-450); RED BLOOD COUNT 4.21 MIL/MM3 (4.50-5.90); RED CELL DISTRIBUTION WIDTH 14.2 % (11.6-17.2); WHITE BLOOD COUNT 12.2 TH/MM3 (4.0-11.0)
[2017-08-15 09:21] LABS: POTASSIUM 4.2 MEQ/L (3.5-5.1)
[2017-08-15 12:00] VITALS: BP 119/64; PULSE 59; RESP 20; TEMP 98.6; O2SAT 94
--- NOTE | 2017-08-15 12:07 | RADRPT ---
EXAM DATE/TIME: 08/15/2017 11:39 [facility] COMPARISON: CHEST SINGLE AP, August 04, 2017, 15:42. INDICATIONS : PICC line placement. MEDICAL HISTORY : Hypertension. Hypercholesterolemia. Cerebral vascular accident.Coronary artery disease. SURGICAL HISTORY : Cholecystectomy. Orthopedic surgery. CABG. ENCOUNTER: Initial ACUITY: 1 day PAIN SCORE: 0/10 LOCATION: Bilateral chest FINDINGS: A single view of the chest demonstrates the lungs to be symmetrically aerated without evidence of mas s, infiltrate or effusion. Right-sided PICC line in good position. Numerous median sternotomy wires. 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 Osseous structures are intact. CONCLUSION: Normal examination, lungs are clear. Seamus Tena MD on August 15, 2017 at 12:05 Board Certified Radiologist. This report was verified electronically.
[2017-08-15] MEDS ORDERED: WARFARIN SOD 1 MG TAB PO ONE (16:00)
== END 2017-08-15 15:10 | disposition home health service (06) | DRG 871 ==
LOC: NEPC 08:15 → NEDA 12:49 → NEPFCDU 14:59 → OBSVTOIN 15:59 → HCPC 20:00 → HCIS 08-04 01:38 → N04A 08-12 14:29
PROVIDERS: ADMIT Family Medicine; ATTEND Family Medicine
PROC: B246ZZ4 Ultrasonography of Right and Left Heart, Transesophageal (ICD-10-PCS; principal; 2017-08-07)
PROC: 02HV33Z Insertion of Infusion Device into Superior Vena Cava, Percutaneous Approach (ICD-10-PCS; 2017-08-15)
DX: A41.01 Sepsis due to Methicillin susceptible Staphylococcus aureus (principal); I33.0 Acute and subacute infective endocarditis; D69.6 Thrombocytopenia, unspecified; K56.0 Paralytic ileus; I48.0 Paroxysmal atrial fibrillation; I10 Essential (primary) hypertension; I25.10 Atherosclerotic heart disease of native coronary artery without angina pectoris; E78.5 Hyperlipidemia, unspecified; E80.6 Other disorders of bilirubin metabolism; G89.29 Other chronic pain; N40.1 Benign prostatic hyperplasia with lower urinary tract symptoms; R33.8 Other retention of urine; K59.00 Constipation, unspecified; M48.061 Spinal stenosis, lumbar region without neurogenic claudication; M47.816 Spondylosis without myelopathy or radiculopathy, lumbar region; M17.12 Unilateral primary osteoarthritis, left knee; R10.31 Right lower quadrant pain; S80.811A Abrasion, right lower leg, initial encounter; R31.0 Gross hematuria; B95.61 Methicillin susceptible Staphylococcus aureus infection as the cause of diseases classified elsewhere; Z98.1 Arthrodesis status; Z95.1 Presence of aortocoronary bypass graft; Z87.891 Personal history of nicotine dependence
CPT/HCPCS: 36569; 71010; 72158; 72197; 73560; 73610; 74177; 76700; 76937; 78806; 80048; 80053; 80074; 80162; 80170; 81001; 82248; 82565; 83010; 83036; 83605; 83615; 83690; 83735; 83880; 84100; 84153; 84443; 84484; 85025; 85027; 85060; 85610; 85652; 85730; 86022; 86140; 86403; 87040; 87186; 87205; 93005; 93306; 93312; 93320; 93325; 96361; 96365; 96374; 96375; A9569; A9579; G0378; J0690; J1160; J1580; J1644; J1956; J2270; J2405; J2543; J3370; J7030; J7040; L1906; Q9963; Q9967

== ENCOUNTER 2017-09-16 12:03 | Emergency (ER) | payer MEDICARE, OTHER ==
[~2017-09-16] VITALS: Ht 177.8 cm; Wt 88.0 kg
[~2017-09-16 12:03] MED LIST: ASPI-516 CHEW; CEFA1SOL IV; CHOL10008 PO; COUM6TAB PO; DIGO0.12 PO; EPIN1INJ21 IV PUSH; EPIN1INJ21 SQ; HYDR-3516 PO; LIPI20TA PO; METO25TA3 PO; OMEGCAP PO; PROT40TA PO; SOLU250I IV PUSH; TAMS5CAP PO; VITA200C3 PO; VITA250T3 PO
[2017-09-16 12:07] VITALS: BP 156/82; PULSE 51; RESP 12; TEMP 98.4; O2SAT 97
[2017-09-16 12:26] VITALS: BP 130/92; PULSE 50; RESP 19; O2SAT 98
[2017-09-16] MEDS ORDERED: METO25TA3 PO (12:34)
[2017-09-16 12:45] VITALS: BP 145/33; RESP 16; O2SAT 100
[2017-09-16] MEDS ORDERED: ONDANSETRON HCL 4 MG/2 ML VIAL IVP ONE (12:45)
[2017-09-16] MEDS ORDERED: SODIUM CHLORID 0.9% 500 ML INJ 500 ML IV ONE (12:45)
[2017-09-16] MEDS ORDERED: SODIUM CHLORIDE 0.9% FLUSH 10 ML FLUSH IV FLUSH PRN (12:45)
--- NOTE | 2017-09-16 12:58 | PD ---
HPI Chief Complaint: Medical Clearance Time Seen by Provider: 12:18 Travel History International Travel<30 days: No Contact w/Intl Traveler<30days: No Traveled to known affect area: No History of Present Illness HPI 76-year-old male presents to the emergency Department with complaint of night sweat coming feeling sluggish, dizziness, shakiness, heart palpitations and feeling nauseated 2 weeks. He followed up with his primary care provider, Dr. Rojo, and was told that he was having skipped heartbeats and his metoprolol was increased from twice a day to 3 times a day. Since the increase of the metoprolol he has felt more dizzy and nauseated with a syncopal episode this morning after sitting up in bed. His heart rate is low 50s and he states it is normally in the 70-80's. He is currently being treated with IV cefazolin for Staphylococcus aureus and has a PICC line. He was hospitalized in July and discharged on August 16. He is currently taking Coumadin, baby aspirin, and using heparin flushes for his PICC line. Denies hematochezia, hematemesis, hematuria, hemoptysis. He is taking digoxin for atrial fibrillation. Denies fevers, vomiting. Denies chest pain, shortness of breath, abdominal pain, change in urine or stool. He says his symptoms are better with activity and worse while at rest. History of hypertension, sepsis, atrial fibrillation, endocarditis, BPH. No known allergies. Has no other medical complaints. No other modifying factors or associated signs and symptoms. PFSH Past Medical History Hx Anticoagulant Therapy: Yes Arthritis: Yes Cancer: No Cardiovascular Problems: Yes High Cholesterol: Yes Chest Pain: Yes Cerebrovascular Accident: Yes Coronary Artery Disease: Yes Diminished Hearing: No Endocrine: No Genitourinary: No Hypertension: Yes Immune Disorder: No Implanted Vascular Access Dvce: Yes Musculoskeletal: Yes Neurologic: No Psychiatric: No Reproductive: No Respiratory: No Sickle Cell Disease: No Tetanus Vaccination: Unknown Influenza Vaccination: Yes Past Surgical History Abdominal Surgery: Yes (APPENDIX) Appendectomy: Yes Body Medical Devices: BACK PLATE Cardiac Surgery: Yes (CABGX5) Cholecystectomy: Yes Coronary Artery Bypass Graft: Yes (X5) Neurologic Surgery: Yes Social History Alcohol Use: Yes (occassional) Tobacco Use: No Substance Use: No Allergies-Medications (Allergen,Severity, Reaction): Coded Allergies: No Known Allergies (Unverified , 09/16/17) Reported Meds & Prescriptions Reported Meds & Active Scripts Active Aspirin 81 Mg Chew 81 Mg CHEW DAILY Flomax (Tamsulosin HCl) 0.4 Mg Cap 0.4 Mg PO HS Coumadin (Warfarin) 6 Mg Tab 6 Mg PO DAILY Digoxin 0.125 Mg Tab 0.125 Mg PO DAILY Epinephrine Inj 1 Mg/Ml (1 Ml) Inj 0.3 Mg SQ ONCE PRN Give with any signs of respiratory distress. Epinephrine Inj 1 Mg/Ml (1 Ml) Inj 0.3 Mg IV PUSH ONCE PRN Cefazolin Inj (Cefazolin Sodium/Dextrose) 1 Gm/50 Ml Bagp 2 Gm IV Q8H 42 Days Reported Metoprolol Tartrate 25 Mg Tab 25 Mg PO Q6HR [place]-3 Fish Oil/Vitamin (Fish Oil-Cholecalciferol) 1,000-1,000 Mg Cap 1 Cap PO DAILY Vitamin E 200 Unit Cap 500 Units PO DAILY Vitamin D3 (Cholecalciferol) 1,000 Unit Cap 1,000 Units PO DAILY Vitamin C (Ascorbic Acid) 250 Mg Tab 1,000 Mg PO Lipitor (Atorvastatin Calcium) 20 Mg Tab 20 Mg PO HS Review of Systems Except as stated in HPI: all other systems reviewed are Neg Physical Exam Narrative GENERAL: Well-nourished, well-developed patient, in no acute distress; afebrile , nontoxic-appearing SKIN: Warm and dry. HEAD: Atraumatic. Normocephalic. EYES: Pupils equal and round. No scleral icterus. No injection or drainage. ENT: Mucosa pink and moist. Airway patent. NECK: Trachea midline. CARDIOVASCULAR: Bradycardic rate and rhythm. No murmur appreciated. RESPIRATORY: No accessory muscle use. Clear to auscultation. Breath sounds equal bilaterally. GASTROINTESTINAL: Abdomen soft, non-tender, nondistended. Hepatic and splenic margins not palpable. Bowel sounds are active 4 quadrants. BACK: No CVA tenderness. MUSCULOSKELETAL: No obvious deformities. No clubbing. No cyanosis. No edema. NEUROLOGICAL: Awake and alert. Oriented 3. No obvious cranial nerve deficits. Motor grossly within normal limits. Normal speech. PSYCHIATRIC: Appropriate mood and affect; insight and judgment normal. Data Data Last Documented VS Vital Signs Date Time Temp Pulse Resp B/P (MAP) Pulse Ox O2 Delivery O2 Flow Rate FiO2 09/16/17 14:25 55 16 154/75 (101) 60 22 157/77 (103) 57 16 155/81 (105) 09/16/17 12:45 100 Room Air 09/16/17 12:07 98.4 Orders Orders Electrocardiogram (09/16/17 ) Complete Blood Count With Diff (09/16/17 12:38) Prothrombin Time / Inr (Pt) (09/16/17 12:38) Act Partial Throm Time (Ptt) (09/16/17 12:38) Urinalysis - C+S If Indicated (09/16/17 12:38) Iv Access Insert/Monitor (09/16/17 12:38) Ecg Monitoring (09/16/17 12:38) Oximetry (09/16/17 12:38) Ondansetron Inj (Zofran Inj) (09/16/17 12:45) Sodium Chloride 0.9% Flush (Ns Flush) (09/16/17 12:45) Chest, Single Ap (09/16/17 12:38) Sepsis Workup Initiated (09/16/17 ) Lactic Acid Sepsis Protocol (09/16/17 12:38) Blood Culture (09/16/17 12:38) Comprehensive Metabolic Panel (09/16/17 12:38) Influenzae A/B Antigen (09/16/17 12:38) Digoxin (09/16/17 12:38) Orthostatic Vital Signs (09/16/17 12:38) Sodium Chlorid 0.9% 500 Ml Inj (Ns 500 M (09/16/17 12:45) Ed Discharge Order (09/16/17 14:32) Labs Laboratory Tests Test 09/16/17 12:45 09/16/17 14:00 White Blood Count 8.2 TH/MM3 Red Blood Count 4.07 MIL/MM3 Hemoglobin 11.9 GM/DL Hematocrit 34.8 % Mean Corpuscular Volume 85.5 FL Mean Corpuscular Hemoglobin 29.3 PG Mean Corpuscular Hemoglobin Concent 34.3 % Red Cell Distribution Width 14.6 % Platelet Count 181 TH/MM3 Mean Platelet Volume 8.2 FL Neutrophils (%) (Auto) 56.4 % Lymphocytes (%) (Auto) 30.3 % Monocytes (%) (Auto) 11.2 % Eosinophils (%) (Auto) 1.4 % Basophils (%) (Auto) 0.7 % Neutrophils # (Auto) 4.7 TH/MM3 Lymphocytes # (Auto) 2.5 TH/MM3 Monocytes # (Auto) 0.9 TH/MM3 Eosinophils # (Auto) 0.1 TH/MM3 Basophils # (Auto) 0.1 TH/MM3 CBC Comment DIFF FINAL Differential Comment Prothrombin Time 28.8 SEC Prothromb Time International Ratio 2.9 RATIO Activated Partial Thromboplast Time 38.0 SEC Blood Urea Nitrogen 11 MG/DL Creatinine 0.87 MG/DL Random Glucose 83 MG/DL Total Protein 7.5 GM/DL Albumin 3.6 GM/DL Calcium Level 8.8 MG/DL Alkaline Phosphatase 70 U/L Aspartate Amino Transf (AST/SGOT) 24 U/L Alanine Aminotransferase (ALT/SGPT) 12 U/L Total Bilirubin 0.5 MG/DL Sodium Level 138 MEQ/L Potassium Level 3.9 MEQ/L Chloride Level 104 MEQ/L Carbon Dioxide Level 29.7 MEQ/L Anion Gap 4 MEQ/L Estimat Glomerular Filtration Rate 85 ML/MIN Lactic Acid Level 1.1 mmol/L Digoxin Level 0.5 NG/ML Urine Color LIGHT-YELLOW Urine Turbidity CLEAR Urine pH 7.0 Urine Specific [place] 1.007 Urine Protein NEG mg/dL Urine Glucose (UA) NEG mg/dL Urine Ketones NEG mg/dL Urine Occult Blood SMALL Urine Nitrite NEG Urine Bilirubin NEG Urine Urobilinogen LESS THAN 2.0 MG/DL Urine Leukocyte Esterase NEG Urine RBC 5 /hpf Urine WBC LESS THAN 1 /hpf Microscopic Urinalysis Comment CULT NOT INDICATED MDM Medical Decision Making Medical Screen Exam Complete: Yes Emergency Medical Condition: Yes Medical Record Reviewed: Yes Differential Diagnosis Sepsis, influenza, orthostatic hypotension, bradycardia, syncope, arrhythmia Narrative Course 76-year-old male presents after syncopal episode this morning. I discussed my plan of care with Dr. Traore and she agrees with my treatment plan. EKG with sinus bradycardia; without ST elevation or depression; reviewed by Dr. Traore. Patient placed on cardiopulmonary monitor. Sepsis protocol initiated. CBC, CMP, coags, digoxin level, blood cultures, lactic acid, chest x -ray, urinalysis, EKG, influenza, orthostatic vital signs, 500 normal saline bolus ordered. 1344: Chest x-ray concludes: Compensated cardiomegaly otherwise negative. Influenza negative. CBC, CMP unremarkable. PTT 28.8. APTT 38.0. INR 2.9. Lactic acid 1.1. 1415: Digoxin 0.5. 1430: Dr. Traore evaluated the patient and the patient was given the options to be admitted for observation or to go home and return if worsening of symptoms. The patient is able to ambulate at the bedside without dizziness or syncope. He says he feels well and wants to go home. He was instructed to stop taking metoprolol and to follow-up with his PCP on Sunday. He was instructed to monitor his blood pressure and heart rate at home and return with worsening of symptoms. He verbalizes understanding and agreement of treatment plan and agrees to discharge. Dr. Traore agrees with discharge. Instructed patient to follow up with primary care provider. Patient verbalizes understanding and agreement with treatment plan. Patient is medically cleared and stable for discharge. Discussed reasons to return to the emergency department. Patient agrees with treatment plan. The patients vital signs are stable and the patient is stable for outpatient follow-up and treatment. Patient discharged home, stable and in no acute distress. Diagnosis Primary Impression: Bradycardia Additional Impression: Syncope Qualified Codes: R55 - Syncope and collapse Referrals: Emergency Vehicle Operator Primary Care Physician Patient Instructions: Bradycardia (ED), General Instructions, Syncope (ED) Additional Instructions: Stop taking metoprolol Follow-up with primary care provider on Sunday Follow-up with correspondence school instructor Return to the emergency department immediately with worsening symptoms, particularly with symptoms as discussed Med/Other Pt SpecificInfo: Med Stopped, No Meds Exist/No RX given Disposition: DISCHARGE HOME Condition: Stable Melanie Muir [facility] Sep 16, 2017 12:58
--- NOTE | 2017-09-16 13:10 | RADRPT ---
EXAM DATE/TIME: 09/16/2017 12:58 [facility] COMPARISON: CHEST SINGLE AP, August 15, 2017, 11:39. INDICATIONS : Multiple syncopal episodes. MEDICAL HISTORY : Hypertension. Hypercholesterolemia. Cerebral vascular accident.Coronary artery disease. SURGICAL HISTORY : CABG. Cholecystectomy. ENCOUNTER: Initial ACUITY: 2 days PAIN SCORE: 0/10 LOCATION: Bilateral chest FINDINGS: PICC line good position. Pelvic cardiomegaly. History of previous bypass. Negative for infiltrate or failure. CONCLUSION: Compensated cardiomegaly otherwise negative Keyur Miguel MD FACR on September 16, 2017 at 13:08 Board Certified Radiologist. This report was verified electronically.
[2017-09-16 13:11] LABS: AUTOMATED NEUTROPHIL # 4.7 TH/MM3 (1.8-7.7); BASOPHIL # 0.1 TH/MM3 (0-0.2); BASOPHIL % 0.7 % (0.0-2.0); EOSINOPHIL # 0.1 TH/MM3 (0-0.4); EOSINOPHIL % 1.4 % (0.0-4.0); HEMATOCRIT 34.8 % (39.0-51.0); HEMOGLOBIN 11.9 GM/DL (13.0-17.0); LYMPH % 30.3 % (9.0-44.0); LYMPHOCYTE # 2.5 TH/MM3 (1.0-4.8); MEAN CELL VOLUME 85.5 FL (80.0-100.0); MEAN CORPUSCULAR HEMOGLOBIN 29.3 PG (27.0-34.0); MEAN CORPUSCULAR HGB CONC 34.3 % (32.0-36.0); MEAN PLATELET VOLUME 8.2 FL (7.0-11.0); MONO % 11.2 % (0.0-8.0); MONOCYTE # 0.9 TH/MM3 (0-0.9); NEUT % 56.4 % (16.0-70.0); PLATELET COUNT 181 TH/MM3 (150-450); RED BLOOD COUNT 4.07 MIL/MM3 (4.50-5.90); RED CELL DISTRIBUTION WIDTH 14.6 % (11.6-17.2); WHITE BLOOD COUNT 8.2 TH/MM3 (4.0-11.0)
[2017-09-16 13:20] LABS: INTERNATIONAL NORMALIZED RATIO 2.9 RATIO; PROTHROMBIN TIME - PATIENT 28.8 SEC (9.8-11.6)
[2017-09-16 13:28] LABS: ALBUMIN 3.6 GM/DL (3.4-5.0); AST (GOT) 24 U/L (15-37); BICARBONATE 29.7 MEQ/L (21.0-32.0); BLOOD UREA NITROGEN 11 MG/DL (7-18); CALCIUM 8.8 MG/DL (8.5-10.1); CHLORIDE 104 MEQ/L (98-107); CREATININE 0.87 MG/DL (0.60-1.30); GLOMERULAR FILTRATION RATE 85 ML/MIN (>89); GLUCOSE,RANDOM 83 MG/DL (74-106); SODIUM (NA) 138 MEQ/L (136-145)
[2017-09-16 13:29] LABS: ALT (GPT) 12 U/L (12-78)
[2017-09-16 13:43] LABS: ALKALINE PHOSPHATASE 70 U/L (45-117); DIGOXIN 0.5 NG/ML (0.8-2.0); TOTAL BILIRUBIN ADULT 0.5 MG/DL (0.2-1.0); TOTAL PROTEIN 7.5 GM/DL (6.4-8.2)
[2017-09-16 14:25] VITALS: BP_SYST 154; BP_SYST 155; BP_SYST 157; BP_DIAS 75; BP_DIAS 77; BP_DIAS 81; RESP 16; RESP 22
--- NOTE | 2017-09-16 14:34 | PD ---
Physical Exam Date Seen by Provider: Sep 16, 2017 Time Seen by Provider: 12:30 Narrative I, Dr. Traore, have reviewed the advance practice practitioner's documentation and am in agreement, met with the patient face to face, made the diagnosis, and the medical decision making was done by me. *My assessment and Findings: Patient seen and evaluated with PA, please see PA note for further details. He he apparently is having some dizziness intermittently for several days, has been in the hospital recently, currently getting IV antibiotics for endocarditis and sepsis. He is on digoxin and metoprolol for dysrhythmias. His doses of metoprolol has been increased recently to 3 times a day. He otherwise denies any fevers or any other issues. Initial EKG showed sinus bradycardia rate of 49 bpm with no signs of acute ST-T changes. Laboratory Tests Test 09/16/17 12:45 09/16/17 14:00 Red Blood Count 4.07 MIL/MM3 (4.50-5.90) Hemoglobin 11.9 GM/DL (13.0-17.0) Hematocrit 34.8 % (39.0-51.0) Monocytes (%) (Auto) 11.2 % (0.0-8.0) Prothrombin Time 28.8 SEC (9.8-11.6) Activated Partial Thromboplast Time 38.0 SEC (24.3-30.1) Anion Gap 4 MEQ/L (5-15) Estimat Glomerular Filtration Rate 85 ML/MIN (>89) Digoxin Level 0.5 NG/ML (0.8-2.0) Last 24 hours Impressions Chest X-Ray 09/16/17 1238 Signed Impressions: Service Date/Time: Saturday, September 16, 2017 12:58 - CONCLUSION: Compensated cardiomegaly otherwise negative Keyur Miguel MD FACR Chest x-ray and lab work did not show any signs of significant acute pathology. However, it is noted that he is fairly bradycardic. At this point, I suspect that the metoprolol may be decreasing his heart rate up it much. He last took metoprolol yesterday evening. The patient was observed in the ER for several hours, his heart rates her running at around 50-55 bpm. At this point, orthostasis was done and he is doing well in the ER. I have discussed the findings with him and have offered to admit her as an observation for bradycardia but the patient is declining at this time, stating that he rather go home for the holidays. Patient is released with precaution to come back for any worsening in symptoms. We will hold his metoprolol meanwhile. The plan was discussed with him and he states understanding. Data Data Last Documented VS Vital Signs Date Time Temp Pulse Resp B/P (MAP) Pulse Ox O2 Delivery O2 Flow Rate FiO2 09/16/17 14:25 55 16 154/75 (101) 60 22 157/77 (103) 57 16 155/81 (105) 09/16/17 12:45 100 Room Air 09/16/17 12:07 98.4 Orders Orders Electrocardiogram (09/16/17 ) Complete Blood Count With Diff (09/16/17 12:38) Prothrombin Time / Inr (Pt) (09/16/17 12:38) Act Partial Throm Time (Ptt) (09/16/17 12:38) Urinalysis - C+S If Indicated (09/16/17 12:38) Iv Access Insert/Monitor (09/16/17 12:38) Ecg Monitoring (09/16/17 12:38) Oximetry (09/16/17 12:38) Ondansetron Inj (Zofran Inj) (09/16/17 12:45) Sodium Chloride 0.9% Flush (Ns Flush) (09/16/17 12:45) Chest, Single Ap (09/16/17 12:38) Sepsis Workup Initiated (09/16/17 ) Lactic Acid Sepsis Protocol (09/16/17 12:38) Blood Culture (09/16/17 12:38) Comprehensive Metabolic Panel (09/16/17 12:38) Influenzae A/B Antigen (09/16/17 12:38) Digoxin (09/16/17 12:38) Orthostatic Vital Signs (09/16/17 12:38) Sodium Chlorid 0.9% 500 Ml Inj (Ns 500 M (09/16/17 12:45) Labs Laboratory Tests Test 09/16/17 12:45 White Blood Count 8.2 TH/MM3 Red Blood Count 4.07 MIL/MM3 Hemoglobin 11.9 GM/DL Hematocrit 34.8 % Mean Corpuscular Volume 85.5 FL Mean Corpuscular Hemoglobin 29.3 PG Mean Corpuscular Hemoglobin Concent 34.3 % Red Cell Distribution Width 14.6 % Platelet Count 181 TH/MM3 Mean Platelet Volume 8.2 FL Neutrophils (%) (Auto) 56.4 % Lymphocytes (%) (Auto) 30.3 % Monocytes (%) (Auto) 11.2 % Eosinophils (%) (Auto) 1.4 % Basophils (%) (Auto) 0.7 % Neutrophils # (Auto) 4.7 TH/MM3 Lymphocytes # (Auto) 2.5 TH/MM3 Monocytes # (Auto) 0.9 TH/MM3 Eosinophils # (Auto) 0.1 TH/MM3 Basophils # (Auto) 0.1 TH/MM3 CBC Comment DIFF FINAL Differential Comment Prothrombin Time 28.8 SEC Prothromb Time International Ratio 2.9 RATIO Activated Partial Thromboplast Time 38.0 SEC Blood Urea Nitrogen 11 MG/DL Creatinine 0.87 MG/DL Random Glucose 83 MG/DL Total Protein 7.5 GM/DL Albumin 3.6 GM/DL Calcium Level 8.8 MG/DL Alkaline Phosphatase 70 U/L Aspartate Amino Transf (AST/SGOT) 24 U/L Alanine Aminotransferase (ALT/SGPT) 12 U/L Total Bilirubin 0.5 MG/DL Sodium Level 138 MEQ/L Potassium Level 3.9 MEQ/L Chloride Level 104 MEQ/L Carbon Dioxide Level 29.7 MEQ/L Anion Gap 4 MEQ/L Estimat Glomerular Filtration Rate 85 ML/MIN Lactic Acid Level 1.1 mmol/L Digoxin Level 0.5 NG/ML [facility] Medical Record Reviewed: Yes Supervised Visit with BECCA: Yes Diagnosis Primary Impression: Bradycardia Med/Other Pt SpecificInfo: Med Stopped (hold metoprolol) Disposition: 01 DISCHARGE HOME Condition: Stable Lucius Traore MD Sep 16, 2017 14:34
[2017-09-16 14:39] LABS: BILIRUBIN, URINE NEG (NEG); BLOOD, URINE SMALL (NEG); GLUCOSE,URINE NEG (NEG); KETONE, URINE NEG (NEG); NITRITE,URINE NEG (NEG); URINE COLOR LIGHT-YELLOW (YELLW/STRAW); URINE LEUKOCYTE ESTERASE NEG (NEG)
--- NOTE | 2017-09-16 15:59 | EKG ---
Date Performed: 09/16/2017 Time Performed: 12:23:20 PTAGE: 76 years EKG: SINUS BRADYCARDIA POSSIBLE INFERIOR MYOCARDIAL INFARCTION ABNORMAL ECG PREVIOUS TRACING : 08/04/2017 08.29 Compared to previous tracing, Sinus rhythm has replaced atrial fibrillation. DOCTOR: Marty Lin Interpretating Date/Time 09/16/2017 15:59:10
[2017-09-21] MEDS ORDERED: DIGO0.12 PO (09:56)
[2017-09-25] MEDS ORDERED: MECL12.574 PO (15:27)
[2017-10-02] MEDS ORDERED: METO1TAB42 PO (10:03)
== END 2017-09-16 15:20 | disposition home or self-care (01) ==
LOC: NEPC 12:03
DX: R00.1 Bradycardia, unspecified (principal); R55 Syncope and collapse; I10 Essential (primary) hypertension; I25.10 Atherosclerotic heart disease of native coronary artery without angina pectoris; E78.00 Pure hypercholesterolemia, unspecified; Z79.01 Long term (current) use of anticoagulants; Z79.82 Long term (current) use of aspirin; Z95.1 Presence of aortocoronary bypass graft
CPT/HCPCS: 71010; 80053; 80162; 81001; 83605; 85025; 85610; 85730; 87040; 87804; 93005; 96361; 96374; 99285; J2405; J7040

== ENCOUNTER 2017-10-03 20:18 | Emergency (ER) | payer MEDICARE, OTHER ==
[~2017-10-03 20:18] MED LIST changes: -CEFA1SOL IV; -EPIN1INJ21 IV PUSH; -EPIN1INJ21 SQ; -HYDR-3516 PO; +MECL12.574 PO; +METO1TAB42 PO; -METO25TA3 PO; -PROT40TA PO; -SOLU250I IV PUSH; -TAMS5CAP PO
[2017-10-03 20:20] VITALS: BP 185/86; PULSE 74; RESP 16; TEMP 99.4; O2SAT 96
[2017-10-03 23:23] VITALS: BP 197/99; PULSE 58; RESP 16; TEMP 98.4; O2SAT 97
[2017-10-03] MEDS ORDERED: hydrALAZINE HCL 20 MG/ML VIAL IV PUSH ONE (23:45)
--- NOTE | 2017-10-03 23:53 | PD ---
HPI Chief Complaint: Dizziness Time Seen by Provider: 23:34 Travel History International Travel<30 days: No Contact w/Intl Traveler<30days: No Traveled to known affect area: No History of Present Illness HPI 76-year-old male complains of dizzy, nausea, elevated blood pressure. Patient has history of vertigo and has been seen by personal physician. Patient had MRI of the brain outpatient which was normal. Patient has been taking meclizine 12.5 mg 3 times a day. [facility]. Patient states that his vertigo is better with the treatment. Patient states that his blood pressure however has been elevated all day today. Patient states that the vertigo symptom is worse this afternoon. Patient denies any headache. Patient denies any visual change. Patient denies any chest pain or shortness of breath. Patient denies abdominal pain. Patient denies any focal weakness or numbness of the extremity. Patient has history of CAD, hypertension, hyperlipidemia, CABG. Patient is on digoxin and Coumadin. PFSH Past Medical History Hx Anticoagulant Therapy: Yes Arthritis: Yes Cancer: No Cardiovascular Problems: Yes High Cholesterol: Yes Chest Pain: Yes Coronary Artery Disease: Yes Diminished Hearing: No Endocrine: No Genitourinary: No Hypertension: Yes Immune Disorder: No Implanted Vascular Access Dvce: Yes Musculoskeletal: Yes Neurologic: No Psychiatric: No Reproductive: No Respiratory: No Sickle Cell Disease: No Tetanus Vaccination: Unknown Influenza Vaccination: No Past Surgical History Abdominal Surgery: Yes (APPENDIX) Appendectomy: Yes Body Medical Devices: BACK PLATE Cardiac Surgery: Yes (CABGX5) Cholecystectomy: Yes Coronary Artery Bypass Graft: Yes (X5) Neurologic Surgery: Yes Other Surgery: Yes Social History Alcohol Use: Yes (occassional) Tobacco Use: No Substance Use: No Allergies-Medications (Allergen,Severity, Reaction): Coded Allergies: No Known Allergies (Unverified , 10/02/17) Reported Meds & Prescriptions Reported Meds & Active Scripts Active Metoprolol Succinate ER 24 HR (Metoprolol Succinate) 25 Mg Tab 25 Mg PO DAILY Meclizine (Meclizine HCl) 12.5 Mg Tab 12.5 Mg PO TID Digoxin 0.125 Mg Tab 0.125 Mg PO DAILY Aspirin 81 Mg Chew 81 Mg CHEW DAILY Coumadin (Warfarin) 6 Mg Tab 6 Mg PO DAILY Reported [place]-3 Fish Oil/Vitamin (Fish Oil-Cholecalciferol) 1,000-1,000 Mg Cap 1 Cap PO DAILY Vitamin E 200 Unit Cap 500 Units PO DAILY Vitamin D3 (Cholecalciferol) 1,000 Unit Cap 1,000 Units PO DAILY Vitamin C (Ascorbic Acid) 250 Mg Tab 1,000 Mg PO Review of Systems General / Constitutional: No: Fever Eyes: No: Visual changes HENT: Positive: Vertigo, Lightheadedness, No: Headaches Cardiovascular: No: Chest Pain or Discomfort Respiratory: No: Shortness of Breath Gastrointestinal: No: Abdominal Pain Genitourinary: No: Dysuria Musculoskeletal: No: Pain Skin: No Rash Neurologic: No: Weakness Psychiatric: No: Depression Endocrine: No: Polydipsia Hematologic/Lymphatic: No: Easy Bruising Physical Exam Narrative GENERAL: Well-nourished, well-developed patient. SKIN: Focused skin assessment warm/dry. HEAD: Normocephalic. EYES: No scleral icterus. No injection or drainage. Pupils 2 mm equal reactive. NECK: Supple, trachea midline. No JVD or lymphadenopathy. CARDIOVASCULAR: Regular rate and rhythm without murmurs, gallops, or rubs. RESPIRATORY: Breath sounds equal bilaterally. No accessory muscle use. GASTROINTESTINAL: Abdomen soft, non-tender, nondistended. MUSCULOSKELETAL: No cyanosis, or edema. BACK: Nontender without obvious deformity. No CVA tenderness. Neurologic exam normal. Data Data Last Documented VS Vital Signs Date Time Temp Pulse Resp B/P (MAP) Pulse Ox O2 Delivery O2 Flow Rate FiO2 10/04/17 00:32 59 16 160/82 (108) 98 10/03/17 23:23 98.4 Room Air Orders Orders Complete Blood Count With Diff (10/03/17 23:44) Basic Metabolic Panel (Bmp) (10/03/17 23:44) Prothrombin Time / Inr (Pt) (10/03/17 23:44) Digoxin (10/03/17 23:44) Iv Access Insert/Monitor (10/03/17 23:44) Ecg Monitoring (10/03/17 23:44) Oximetry (10/03/17 23:44) Hydralazine Inj (Apresoline Inj) (10/03/17 23:45) Labs Laboratory Tests Test 10/03/17 23:20 White Blood Count 8.3 TH/MM3 Red Blood Count 4.47 MIL/MM3 Hemoglobin 12.9 GM/DL Hematocrit 37.8 % Mean Corpuscular Volume 84.5 FL Mean Corpuscular Hemoglobin 28.9 PG Mean Corpuscular Hemoglobin Concent 34.2 % Red Cell Distribution Width 14.5 % Platelet Count 163 TH/MM3 Mean Platelet Volume 8.3 FL Neutrophils (%) (Auto) 46.0 % Lymphocytes (%) (Auto) 36.3 % Monocytes (%) (Auto) 14.3 % Eosinophils (%) (Auto) 2.6 % Basophils (%) (Auto) 0.8 % Neutrophils # (Auto) 3.8 TH/MM3 Lymphocytes # (Auto) 3.0 TH/MM3 Monocytes # (Auto) 1.2 TH/MM3 Eosinophils # (Auto) 0.2 TH/MM3 Basophils # (Auto) 0.1 TH/MM3 CBC Comment DIFF FINAL Differential Comment Prothrombin Time 19.9 SEC Prothromb Time International Ratio 2.0 RATIO Blood Urea Nitrogen 9 MG/DL Creatinine 0.86 MG/DL Random Glucose 100 MG/DL Calcium Level 8.5 MG/DL Sodium Level 139 MEQ/L Potassium Level 4.2 MEQ/L Chloride Level 105 MEQ/L Carbon Dioxide Level 26.3 MEQ/L Anion Gap 8 MEQ/L Estimat Glomerular Filtration Rate 86 ML/MIN Digoxin Level 0.6 NG/ML MDM Medical Decision Making Medical Screen Exam Complete: Yes Emergency Medical Condition: Yes Interpretation(s) 12:43 AM. CBC within normal limit. BMP within normal limit. INR 2.0. Dig 0.6. Differential Diagnosis Differential diagnosis including acute exacerbation of vertigo, uncontrolled hypertension, hypertensive urgency, hypertensive crisis. Narrative Course 76-year-old male with vertigo, dizziness, nausea, elevated blood pressure. Diagnosis Primary Impression: Vertigo Additional Impression: Uncontrolled hypertension Patient Instructions: General Instructions Additional Instructions: CLONIDINE as needed for elevated blood pressure. Continue with meclizine. Follow-up with personal physician and ENT. Return if worse. Med/Other Pt SpecificInfo: Prescription(s) given Scripts Clonidine (Clonidine) 0.1 Mg Tab 0.1 MG PO BID for Blood Pressure Management, #60 TAB 0 Refills Prov: Tl Monterroso MD 10/04/17 Disposition: 01 DISCHARGE HOME Condition: Stable Tl Monterroso MD Oct 03, 2017 23:53
[2017-10-03 23:55] LABS: AUTOMATED NEUTROPHIL # 3.8 TH/MM3 (1.8-7.7); BASOPHIL # 0.1 TH/MM3 (0-0.2); BASOPHIL % 0.8 % (0.0-2.0); EOSINOPHIL # 0.2 TH/MM3 (0-0.4); EOSINOPHIL % 2.6 % (0.0-4.0); HEMATOCRIT 37.8 % (39.0-51.0); HEMOGLOBIN 12.9 GM/DL (13.0-17.0); LYMPH % 36.3 % (9.0-44.0); MEAN CELL VOLUME 84.5 FL (80.0-100.0); MEAN CORPUSCULAR HEMOGLOBIN 28.9 PG (27.0-34.0); MEAN CORPUSCULAR HGB CONC 34.2 % (32.0-36.0); MEAN PLATELET VOLUME 8.3 FL (7.0-11.0); MONO % 14.3 % (0.0-8.0); MONOCYTE # 1.2 TH/MM3 (0-0.9); PLATELET COUNT 163 TH/MM3 (150-450); RED BLOOD COUNT 4.47 MIL/MM3 (4.50-5.90); RED CELL DISTRIBUTION WIDTH 14.5 % (11.6-17.2); WHITE BLOOD COUNT 8.3 TH/MM3 (4.0-11.0)
[2017-10-04 00:14] LABS: BICARBONATE 26.3 MEQ/L (21.0-32.0); CALCIUM 8.5 MG/DL (8.5-10.1); CREATININE 0.86 MG/DL (0.60-1.30)
[2017-10-04 00:16] LABS: PROTHROMBIN TIME - PATIENT 19.9 SEC (9.8-11.6)
[2017-10-04 00:28] LABS: DIGOXIN 0.6 NG/ML (0.8-2.0)
[2017-10-04 00:32] VITALS: BP 160/82; PULSE 59; RESP 16; O2SAT 98
[2017-10-04 00:50] VITALS: BP 156/81; PULSE 59; RESP 16; O2SAT 98
[2017-10-04] MEDS ORDERED: CLON0.1T PO (00:50)
--- NOTE | 2017-10-04 20:19 | EKG ---
Date Performed: 10/03/2017 Time Performed: 23:22:47 PTAGE: 76 years EKG: SINUS BRADYCARDIA NONSPECIFIC ST & T-WAVE ABNORMALITY BORDERLINE ECG SINCE PRIOR TRACING NO SIGNIFICANT CHANGE NOTED PREVIOUS TRACING : 09/16/2017 12.23 DOCTOR: Caren Riojas Interpretating Date/Time 10/04/2017 20:18:20
[2017-10-11] MEDS ORDERED: COUM6TAB PO (14:24)
== END 2017-10-04 01:52 | disposition home or self-care (01) ==
LOC: NEPE 20:18
DX: R42 Dizziness and giddiness (principal); I10 Essential (primary) hypertension; R94.31 Abnormal electrocardiogram [ECG] [EKG]; R11.0 Nausea; I25.10 Atherosclerotic heart disease of native coronary artery without angina pectoris; E78.00 Pure hypercholesterolemia, unspecified; Z79.01 Long term (current) use of anticoagulants
CPT/HCPCS: 80048; 80162; 85025; 85610; 93005; 96374; 99284; J0360